=== PATIENT | female | born 1970 | race Caucasian/White ===

== ENCOUNTER 2020-06-26 12:07 | Inpatient (IN) | payer MEDICARE, MEDICAID, SELFPAY ==
[2020-06-26] VITALS (10 sets, daily range): BP systolic 105–219; BP diastolic 88–120; PULSE 82–99; RESP 16–20; TEMP 36.1–36.6; O2SAT 93–100; BMI 24.7
--- NOTE | ~2020-06-26 | CT_ITS ---
EXAMINATION: CTA brain carotid DATE: 06/26/2020 15:57 INDICATION: Left hemiparesis. TECHNIQUE: Computed tomographic angiography (CTA) of the head was performed without and with 100 mL O mnipaque-350 intravenous contrast. CTA of the neck was performed with intravenous contrast. Automated exposure control and iterative reconstruction technique were employed. The dose-length product was 1 596.20 mGy-cm. Maximum intensity projection and volume rendered 3D-reconstructions were created by th e technologist on a separate workstation. COMPARISON: Head CT 07/03/2006 FINDINGS: HEAD CTA: There is infarct in the laila on the right, likely chronic. There are old infarcts in the bi lateral thalami, right basal ganglia, and bilateral internal capsules. There are scattered areas of l ow attenuation in the cerebral white matter. There is no intracranial hemorrhage, acute infarction, o r abnormal intracranial mass lesion. The ventricles are normal in size. 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 There is mild mucosal thickening in the ethmoid sinuses. The orbits are normal. Th ere is a trace left mastoid effusion. The vertebral arteries are codominant. There is no significant stenosis of basilar artery or the posterior cerebral arteries. There is severe stenosis of right supr aclinoid internal carotid artery. There is moderate stenosis of left cavernous internal carotid arter y. There is mild stenosis of the azygos anterior cerebral artery. There is no significant stenosis of the vertebral artery middle cerebral arteries. NECK CTA: There are no pathologically enlarged lymph nodes. 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 There is no significant stenosis of the vertebral arteries. There is plaque in proximal right in ternal carotid artery in the proximal internal carotid arteries. There is 27% stenosis of the proxim al right internal carotid artery relative to normal distal artery lumen diameter (NASCET criteria). T here is 38% stenosis of the proximal left internal carotid artery relative to normal distal artery william men diameter. There is mild cervical spondylosis. IMPRESSION: 1. 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 2. Moderate nonspecific cerebral white matter disease, which likely represents chronic small vessel i schemic disease. 3. Severe stenosis of right supraclinoid internal carotid artery. Moderate stenosis of left cavernous internal carotid artery. 4. 27% stenosis of the proximal right internal carotid artery relative to normal distal artery lumen diameter (NASCET criteria). 5. 38% stenosis of the proximal left internal carotid artery relative to normal distal artery lumen d iameter. Reviewed, dictated and finalized at location A. ER GRADER IMPRESSION: 1. Old infarcts in the laila, bilateral thalami, right basal ganglia, and bilate ral internal capsules. 2. Moderate nonspecific cerebral white matter disease, which likely represents chronic small vessel ischemic disease. 3. Severe stenosis of right supraclinoid internal carotid artery. Moderate sten osis of left cavernous internal carotid artery. 4. 27% stenosis of the proximal right internal carotid artery relative to loren l distal artery lumen diameter (NASCET criteria). 5. 38% stenosis of the proximal left internal carotid artery relative to normal distal artery lumen diameter.
--- NOTE | ~2020-06-26 | MR_ITS ---
EXAMINATION: MR brain/brain stem wo/w con EXAM DATE: 06/27/2020 14:18 INDICATION: Stroke. TECHNIQUE: Magnetic resonance imaging (MRI) of the brain/brain stem obtained without contrast. Sagit douglas T1, axial diffusion, gradient echo (T2*), T1, T2, FLAIR sequences obtained. Patient was then inj ected with 12 cc intravenous Multihance contrast. Axial and coronal postcontrast T1 weighted sequence s obtained. Correlation is made to CTA brain earlier same date. FINDINGS: There is acute infarction in the right side of the laila. This measures up to 1.7 cm. There is an 8 mm infarction in the left basal ganglia. There is mild to moderate microangiopathy and cerebr al atrophy. No brain mass, extra-axial collections or obstructive hydrocephalus. There are no areas o f abnormal enhancement on the post contrast images. IMPRESSION: 1. Acute right laila infarction. 2. Acute left basal ganglia lacunar infarction. 3. Chronic age related findings. Reviewed, dictated and finalized at location B. TRAINER
--- NOTE | ~2020-06-26 | XR_ITS ---
XR abdomen NG/feed tube insert INDICATION: Evaluate NG tube position. TECHNIQUE: Limited KUB perform for evaluating NG tube . COMPARISON: No prior studies for comparison. FINDINGS: NG tube tip in the stomach. Visualized bowel gas pattern is unremarkable. IMPRESSION: 1: NG tube tip in the stomach. Reviewed, dictated and finalized at location A. MACY ACCOUNT DIRECTOR
--- NOTE | ~2020-06-26 | XR_ITS ---
EXAMINATION: XR chest 1V portable EXAM DATE: 06/26/2020 14:17 INDICATION: cva x4 days ago? TECHNIQUE: Portable AP frontal chest x-ray was obtained. There is no prior study for comparison. FINDINGS: The lungs are clear. There are no pleural effusions. The cardiomediastinal silhouette is within normal limits. There is no pneumothorax suspected. The bones and soft tissues are unremarkab le. IMPRESSION: No acute cardiopulmonary findings. Reviewed, dictated and finalized at location B. EYOR TECHNICIAN
--- NOTE | ~2020-06-26 | CT_ITS ---
EXAMINATION: CT brain wo con EXAM DATE: 06/27/2020 12:05 INDICATION: worsening stroke symptoms, left hemiparesis. TECHNIQUE: Spiral CT of the head was performed without contrast. Axial, coronal and sagittal images were reviewed. The dose-length product (DLP) for this examination was 605.33 mGy-cm. The exposure w as tailored according to patient size, and iterative reconstruction (ASIR) was used as additional dos e reduction technique. Comparison is made to prior examination from 04/26/2020. FINDINGS: There is no acute intraparenchymal hemorrhage. No evidence of intraparenchymal brain mass lesion. No evidence of acute infarction. Please note that initial head CT has limited sensitivity f or small or acute infarctions. Again there is approximately 1 cm hypodense region in the right side o f the laila Punctate old bilateral lacunar infarctions. There is moderate periventricular and subcort ical hypodensity, nonspecific but probably related to small vessel ischemic disease. There is mild prominence of the sulci and ventricles related to cerebral atrophy. There is intracranial carotid a rteriosclerosis. There are no extra-axial collections. There is no mass effect or midline shift. T he orbits are unremarkable. Soft tissue is unremarkable. The visualized sinuses and mastoid air aleja ls are well aerated. IMPRESSION: 1. Age-indeterminate right pontine infarction. 2. Chronic age related findings. 3. Bilateral lacunar infarctions. Reviewed, dictated and finalized at location B. E WORKER
--- NOTE | 2020-06-26 12:25 | ECG_ITS ---
Measurements Intervals [place] Rate: 94 P: 57 IA: 130 QRS: 15 QRSD: 82 T: 128 QT: 349 QTc: 439 Interpretive Statements SINUS RHYTHM LEFT VENTRICULAR HYPERTROPHY WITH ST-T CHANGE BORDERLINE R WAVE PROGRESSION, ANTERIOR LEADS BORDERLINE ST ABNORMALITY- ANTERIOLATERAL LEADS BORDERLINE ECG Electronically Signed On 06-26-2020 15:21:08 STONE DRILLER by Jm Cruz D.O.
[2020-06-26 12:40] LABS: Basophils Percent Auto 0.4 % (0.2-1.2); Eosinophils Absolute Auto 0.1 K/mm3 (0-0.3); Eosinophils Percent Auto 1.7 % (0-4.4); Hematocrit 37.6 % (37.0-47.0); Hemoglobin 13.3 g/dL (12.0-15.0); Immature Granulocyte Absolute 0.02 K/mm3 (0.00-0.031); Immature Granulocyte Percent A 0.3 % (0-0.5); Lymphocytes Absolute Auto 1.56 K/mm3 (0.9-3.2); Lymphocytes Percent Auto 20.9 % (18.3-44.2); Mean Corpuscular HGB Conc 35.4 g/dl (32-36); Mean Corpuscular Volume 84.9 fl (80-100); Mean Platelet Volume 8.8 fl (7.4-10.4); Monocytes Absolute Auto 0.6 K/mm3 (0.1-0.6); Monocytes Percent Auto 7.4 % (2.6-8.5); Neutrophils Absolute Auto 5.2 K/mm3 (1.3-6.7); Neutrophils Percent Auto 69.3 % (45.5-73.1); Platelet Count Result 209 k/mm3 (150-375); Red Blood Count 4.43 M/mm3 (4.2-5.4); Red Cell Distribution Width 11.9 % (11.5-14.5); White Blood Count 7.5 K/mm3 (4.5-10.0)
[2020-06-26 12:51] LABS: Prothrombin Time 13.7 Seconds (11.1-14.7)
[2020-06-26 12:52] LABS: Glucose Point of Care 253 (65-105)
[2020-06-26 12:54] LABS: Anion Gap 5 mmol/L (8-16); Blood Urea Nitrogen 11 mg/dL (7-17); Calcium 8.5 mg/dL (8.4-10.2); Carbon Dioxide 30 mmol/L (22-30); Chloride 98 mmol/L (98-107); Estimated CRCL calculation 74 ml/min; Estimated Glomerular Filt Rate > 60; Glucose 241 mg/dL (65-105); Sodium 133 mmol/L (137-145)
[2020-06-26 13:09] LABS: Troponin I < 0.012 ng/mL (0.000-0.034)
--- NOTE | 2020-06-26 15:08 | ED.GENADULT ---
HPI - General Adult General Chief complaint: Weakness Stated complaint: L SIDED WEAKNESS FOR PAST 4D Time Seen by Provider: 06/26/20 14:21 Source: patient and family History of Present Illness HPI narrative: Patient is a 49 y/o female complaining of left sided weakness for last 4 days. She states that her weakness is severe and she is unable to walk. There is no known alleviating or exacerbating factor. She states that she has history of seizure and she take Dilantin. She denies recent seizure. She denies any pain. Son states that she did not want to come to hospital initially when her symptoms first started. Related Data Home Medications Medication Instructions Recorded Confirmed Unable to Obtain Home Medications 06/26/20 Allergies Allergy/AdvReac Type Severity Reaction Status Date / Time aspirin Allergy Seizure Verified 06/26/20 18:55 Review of Systems Constitutional: Constitutional: Denies chills, Denies fever(s), Denies headache(s) and Reports weakness Eyes: Eyes: Denies blurry vision ENT: Denies headache(s) and Denies neck pain Cardiovascular: Cardiovascular: Denies chest pain and Denies dyspnea Respiratory: Respiratory: Denies cough and Denies dyspnea Gastrointestinal: Gastrointestinal: Denies abdominal pain, Denies diarrhea, Denies nausea and Denies vomiting Genitourinary: Genitourinary: Denies hematuria and Denies dysuria Musculoskeletal: Musculoskeletal: Denies back pain and Denies neck pain Neurologic: Denies headache(s) and Reports weakness [facility] Social History Social History Smoking packs per day: 1.5 Smoking cigarettes per day: 30.0 Smoking status: Current every day smoker Tobacco type: cigarettes Exam Const: General: no acute distress and well developed Orientation/consciousness: oriented to person, oriented to place, oriented to time and patient oriented x3 HENMT: Head: normocephalic Ears: external ears normal General nose exam: Normal external nose present Eyes: General: appearance normal, both eyes and all related structures Conjunctivae: conjunctivae normal Neck: Neck: normal visual inspection and full ROM Chest: Chest palpation & inspection: normal inspection of the chest and no tenderness Resp: Effort & Inspection: normal respiratory effort Auscultation: clear to auscultation bilaterally Cardio: Rate: regular rate Rhythm: regular rhythm GI: GI Palp: No abdominal tenderness and Yes Soft to palpation Skin: General skin exam: normal color and turgor normal Neuro: General: oriented to person, oriented to place, oriented to time and patient oriented x3 Cognition (Neuro): normal cognition Motor exam (neuro): Other motor observations present (left hemiparesis) Sensory Exam: other (decreased sensation on left side) Extrem: General: normal to inspection, full ROM and no pedal edema Psych: Appearance: grossly normal Mental Status: mental status grossly normal Affect: normal affect Course Consultations Consultation #1: Discussed with Dr. Slater, who agrees to consult. Date: 06/26/20 Time: 16:28 Consultation #2: Discussed with CHELI Alvarenga, who agrees to admit. Date: 06/26/20 Time: 16:37 Vital Signs Vital signs: Vital Signs Temperature 36.3 C L 06/26/20 12:22 Pulse Rate 99 06/26/20 12:22 Respiratory Rate 18 06/26/20 12:22 Blood Pressure 155/89 H 06/26/20 12:22 Pulse Oximetry 100 06/26/20 12:22 Temperature 36.3 C L 06/26/20 12:22 Pulse Rate 87 06/26/20 18:24 Respiratory Rate 17 06/26/20 18:24 Blood Pressure 188/88 H 06/26/20 18:24 Pulse Oximetry 93 06/26/20 18:24 Medical Decision Making MDM Narrative Medical decision making narrative: Patient is not a tPA candidate for stroke because LKW is greater than 4.5 hours. Patient is not a candidate for intervention because LKW is greater than 24 hours. Aspirin is not given due to reported allergic reaction. She is given Plavix. V
[2020-06-26 15:35] LABS: Phenytoin Dilantin 7 ug/mL (10-20)
[2020-06-26] MEDS: POTASSIUM CHLORIDE 20 MEQ TABLET 40 MEQ PO (15:51)
--- NOTE | 2020-06-26 16:59 | PC.NURSE ---
TRAVIS, SISTER IN LAW, GIVEN UPDATES PER PT REQUEST. TRAVIS'S PHONE NUMBER IS [phone]
[2020-06-26] MEDS: CLOPIDOGREL BISULFATE 75 MG TABLET PO (17:25)
[2020-06-26] MEDS: lisinopriL 20 MG TABLET PO (17:25)
[2020-06-26] MEDS: hydroCHLOROthiazide 25 MG TABLET PO (17:25)
--- NOTE | 2020-06-26 18:42 | ADMGEN ---
This patient, Gogo Johnson, was admitted to 2 Medical Room 245-. Patient/family oriented to hospital policies and general routines including ID bracelet, bed and alarms, visiting hours, pain management, procedures, bathroom and other care routines, personal items, smoking policy, room service/diet, and visiting hours. Information on how to activate the Rapid Response Team has been discussed. Patient/Family are encouraged to report perceived risks to care and to ask questions if they do not understand what they are told or what they should do.
--- NOTE | 2020-06-26 21:11 | PM.IMHP ---
H&P: HPI History of Present Illness Date/Time: 06/26/20 21:11 Chief Complaint: Left facial droop Narrative: Gogo Johnson is a 49 year old female who developed some left-sided weakness about 4 days ago. Her weakness is so severe she was unable to walk. She does have a history of having seizures and is on Dilantin extended release. She denies any recent seizure. She denies hitting her head. She lives with her 2 sons and they wanted her to come to the hospital right away. She also has a history of hypertension. She has a left facial droop and her left arm is flaccid. She denies having any previous strokes. She is able to swallow without difficulty. But she is having some problems with word she is doing some word searching. She has a left facial droop and left arm is flaccid. Her she stroke score was 10 which she was outside the window for any tPA. She is allergic to aspirin so she was given a Plavix. Neurology has been consulted head neck CTA old infarcts in the laila bilateral thalami right basal ganglia and bilateral internal capsules. Moderate nonspecific cerebral white matter disease and likely represents chronic small vessel ischemic disease. Severe stenosis of right supra clinoid internal carotid artery. Moderate stenosis of left cavernous internal carotid artery 27% stenosis of the proximal right internal carotid artery relative to normal distal artery luminal diameter. 38% stenosis of the proximal left internal carotid artery relative to normal distal artery lumen diameter. Chest x-ray nothing acute. She is given oral potassium, Plavix, hydrochlorothiazide and lisinopril in the emergency room. Was noted to be 3.0. Glucose 241. The patient is being admitted to observation status on the date of service is 06/26/2020 Review of Systems Review of Systems: All systems reviewed & are unremarkable except as noted in HPI and below Constitutional: Constitutional: Reports as per HPI and Reports no additional constitutional complaints Eyes: Eyes: Reports as per HPI and Reports no additional eye complaints ENT: Reports system reviewed and no additional complaints, except as documented and Reports Normal hearing present Cardiovascular: Cardiovascular: Reports no additional cardiovascular complaints Respiratory: Respiratory: Reports no additional respiratory complaints and Reports no additional respiratory complaints Gastrointestinal: Gastrointestinal: Reports as per HPI and Reports no additional gastrointestinal complaints Musculoskeletal: Musculoskeletal: Reports no additional musculoskeletal complaints Integumentary/Breasts: Skin/Breast: Reports system reviewed and no additional complaints, except as docu and Reports as per HPI Neurologic: Reports system reviewed and no additional complaints, except as documented, Reports as per HPI and Reports Normal hearing present Psychiatric: Psychiatric: Reports no additional psychiatric complaints and Reports as per HPI Endocrine: Endocrine: Reports no additional endocrine complaints Hematologic/Lymphatic: Hematologic/Lymphatic: Reports no additional hematologic/lymphatic complaints Allergic/Immunologic: Allergic/Immunologic: Reports no additional allergic/immunologic complaints PMFSH Past Medical History Medical History (Updated 06/26/20 @ 21:19 by Colette Kwok NP) Hypertension Seizure disorder Tobacco abuse Surgical History Surgical History (Updated 06/26/20 @ 21:19 by Colette Kwok NP) History of laparotomy Family History Family History (Updated 06/26/20 @ 21:19 by Colette Kwok NP) Sibling Heart disease Social History Social History (Updated 06/26/20 @ 21:20 by Colette Kwok NP) Social History: The patient has 2 sons in the live with her. She is . She is disabled. She does not have a durable power research attorney for healthcare. She is a full code. She denies any alcohol or substance abuse. Smoking packs per day: 1.5 Smoking cigarett
[2020-06-26] MEDS: PHENYTOIN SODIUM INJ 100 MG/2 ML VIAL (*BKC) IV PUSH (22:13)
[2020-06-27] VITALS (7 sets, daily range): BP systolic 117–120; BP diastolic 64–98; PULSE 72–93; RESP 14–20; TEMP 36.2–36.7; O2SAT 98–100; BMI 24.7
[2020-06-27 00:17] LABS: Glucose Point of Care 133 (65-105)
[2020-06-27 05:33] LABS: Basophils Percent Auto 0.5 % (0.2-1.2); Eosinophils Absolute Auto 0.2 K/mm3 (0-0.3); Eosinophils Percent Auto 1.7 % (0-4.4); Hematocrit 37.7 % (37.0-47.0); Hemoglobin 13.2 g/dL (12.0-15.0); Immature Granulocyte Absolute 0.03 K/mm3 (0.00-0.031); Immature Granulocyte Percent A 0.3 % (0-0.5); Lymphocytes Absolute Auto 1.69 K/mm3 (0.9-3.2); Lymphocytes Percent Auto 19.3 % (18.3-44.2); Mean Corpuscular Hemoglobin 29.4 pg (26-34); Mean Platelet Volume 9.2 fl (7.4-10.4); Monocytes Absolute Auto 0.8 K/mm3 (0.1-0.6); Monocytes Percent Auto 8.8 % (2.6-8.5); Neutrophils Absolute Auto 6.1 K/mm3 (1.3-6.7); Neutrophils Percent Auto 69.4 % (45.5-73.1); Platelet Count Result 214 k/mm3 (150-375); Red Blood Count 4.49 M/mm3 (4.2-5.4); Red Cell Distribution Width 11.9 % (11.5-14.5); White Blood Count 8.8 K/mm3 (4.5-10.0)
[2020-06-27 05:49] LABS: Alanine Aminotransferase 19 U/L (4-35); Albumin Level 3.7 g/dL (3.5-5.1); Alkaline Phosphatase 93 U/L (38-126); Anion Gap 5 mmol/L (8-16); Aspartate Amino Transferase 26 U/L (14-36); Bilirubin,Total 0.5 mg/dL (0.2-1.3); Blood Urea Nitrogen 11 mg/dL (7-17); Calcium 8.5 mg/dL (8.4-10.2); Carbon Dioxide 31 mmol/L (22-30); Chloride 100 mmol/L (98-107); Estimated CRCL calculation 57 ml/min; Estimated Glomerular Filt Rate > 60; Glucose 126 mg/dL (65-105); Magnesium 1.7 mg/dL (1.6-2.3); Phosphorus 3.5 mg/dL (2.5-4.5); Potassium 3.4 mmol/L (3.4-5.0); Sodium 136 mmol/L (137-145)
--- NOTE | 2020-06-27 06:00 | ECHO_ITS ---
Patient Info Name: Gogo Johnson Age: 49 years : 1970 Gender: Female Ht: 62 in Wt: 136 lbs BSA: 1.65 m2 HR: 80 bpm BP: 129 / 88 mmHg Heart Rhythm: Sinus Rhythm Technical Quality: Good Exam Date: 06/27/2020 11:06 AM Exam Location: [facility] Patient Status: Inpatient Admit Date: 06/26/2020 Staff Ordering Physician: Emy Dasilva MD Cut Off Saw Tender Metal: Lee You RDCS Attending Provider: Amita Santos MD Referring Physician: Brown GIBBONS; Exam Type: CA echo doppler w bubble study Study Info Indications 436.0 - CVA Complete two-dimensional, color flow and Doppler transthoracic echocardiogram is performed. History/Risk Factors Stroke; hypertension. Summary 1. Complete two-dimensional, color flow and Doppler transthoracic echocardiogram is performed. 2. Left ventricular systolic function is normal, estimated at 65-70%. 3. There is moderately increased left ventricular wall thickness. 4. The left ventricular diastolic function is grade I diastolic dysfunction. 5. There is mild aortic valve stenosis with a peak velocity of 152 cm/s, mean gradient of 5 mmHg, and aortic valve area of 1.5 cm2. 6. There is no aortic valve regurgitation. 7. Unable to estimate PA systolic pressure due to poor spectral resolution of tricuspid regurgitant jet velocity. 8. No intracardiac shunt with injection of agitated saline with and without Valsalva. Recommendations * Consider transesophageal echocardiogram if clinically indicated. Left Ventricle Left ventricular chamber dimension is normal. Left ventricular systolic function is normal, estimated at 65-70%. There is moderately increased left ventricular wall thickness. The left ventricular diastolic function is grade I diastolic dysfunction. Right Ventricle Right ventricular chamber dimension is normal. Right ventricular systolic function is normal. Left Atria Left atrial chamber dimension is normal. Right Atria Right atrial chamber dimension is normal. Atrial Septum No intracardiac shunt with injection of agitated saline with and without Valsalva. Aortic Valve The aortic valve is not well visualized. There is mild aortic valve sclerosis. There is mild aortic valve stenosis with a peak velocity of 152 cm/s, mean gradient of 5 mmHg, and aortic valve area of 1.5 cm2. There is no aortic valve regurgitation. Pulmonic Valve The pulmonic valve is not well visualized. Mitral Valve The mitral valve has thickened leaflets. There is trace mitral valve regurgitation. The mitral valve annulus is mildly calcified. Tricuspid Valve The tricuspid valve leaflets are normal. There is trace tricuspid valve regurgitation. Unable to estimate PA systolic pressure due to poor spectral resolution of tricuspid regurgitant jet velocity. Pericardium/Pleural The pericardium appears normal. There is small pericardial effusion. Inferior Vena Cava Normal inferior vena cava with >50% collapse upon inspiration consistent with normal right atrial pressure, 5 mmHg. Aorta The aortic root size at the sinus of Valsalva is normal. There is mild aortic atherosclerosis. Left Ventricular Outflow Tract Name Value Normal LVOT 2D LVOT Diameter
[2020-06-27] MEDS: PHENYTOIN SODIUM INJ 100 MG/2 ML VIAL (*BKC) IV PUSH ×2 (06:01→15:41)
[2020-06-27 06:32] LABS: Glucose Point of Care 133 (65-105)
[2020-06-27 07:45] LABS: Glucose Point of Care 119 (65-105)
--- NOTE | 2020-06-27 10:04 | PC.NURSE ---
Patient in chair and drooling from right side of mouth. Unable to handle her secretions. Bedside speech therapy evaluation revealed coughing with ice chips and unable to swallow safely. Notified Lia COBB that Plavix not given. Also notified Lia that patient unable to comprehend or respond appropriately to questions asked. Spoke with sister Zainab on the phone (she called to check on patient). Per Zainab, patient is usually alert and oriented and cares for herself at home. MRI screening form completed with sister via phone. MRI notified that form has been completed.
[2020-06-27 10:17] LABS: Cholesterol 205 mg/dL (0-200); HDL Direct 33 mg/dL; Triglycerides 240 mg/dL (<150)
[2020-06-27 10:28] LABS: LDL Cholesterol Direct 142 mg/dL
--- NOTE | 2020-06-27 11:16 | PM.IMPN ---
Progress Note: A&P Assessment and Plan (1) Suspected cerebrovascular accident (CVA): Code(s): R09.89 - Other specified symptoms and signs involving the circulatory and respiratory systems Status: Acute Assessment and Plan: Patient has had a significant change overnight according to documentation -her new stroke score is 26 which is a change from 10 in the ER -I am going to get a stat CT of the brain to ensure no bleed -MRI of the brain is also been ordered and will likely be done this afternoon -I have spoken to [facility] about the case and they are going to wait for the stat CT and go from there -they recommend getting her blood pressure little higher and suggests a L bolus of fluids and to keep the patient flat -patient unable to tolerate anything by mouth so Plavix was not given. She is unable to tolerate aspirin as it causes seizures -unable to get a hold of her 2 sons but nurse was able to speak to a sister. Once we know more, I will be calling her -patient has a history of old strokes on CT but I am unable to talk to her son's or get any more information about that. -if she continues the way she is, she will need a G-tube -PT/OT/ST has been ordered -will need Holter monitor at discharge (2) Acute left hemiparesis: Code(s): G81.94 - Hemiplegia, unspecified affecting left nondominant side Status: Acute Assessment and Plan: PT and OT ordered but the patient will unlikely be able to cooperate at this time (3) Hypertension: Qualifiers: Hypertension type: unspecified Qualified Code(s): I10 - Essential (primary) hypertension Code(s): I10 - Essential (primary) hypertension Status: Chronic Assessment and Plan: Last blood pressure 117/64 -will stop hydralazine and try to keep the blood pressure elevated -as stated above, 1 L bolus fluid has been ordered (4) Seizure disorder: Code(s): G40.909 - Epilepsy, unspecified, not intractable, without status epilepticus Status: Chronic Assessment and Plan: Continue Dilantin IV, patient could be having seizures which is causing her to be more aphasic -will await CT of the brain -consider Shun, I will talk to Neurology once CT is back (5) Hypokalemia: Code(s): E87.6 - Hypokalemia Status: Acute Assessment and Plan: Low end of normal today, monitor (6) Elevated blood sugar: Code(s): R73.9 - Hyperglycemia, unspecified Status: Acute Assessment and Plan: A1c 6.0 -monitor Time Spent With Patient Time with patient: 25 - 35 minutes Subjective Date/time seen: 06/27/20 11:16 Interval history: Pt is a 49-year-old female here for suspected stroke. Patient was seen today and is completely aphasic. She arouses to stimulation and her name but does not cooperate or speak Review of Systems Review of Systems: All systems reviewed & are unremarkable except as noted in HPI and below Exam Narrative: Exam Narrative: General: Patient resting comfortably in bed in no acute distress HEENT: normocephalic, tongue seems to be protruding to the left Neck: supple Neuro: Alert but not oriented. Appears to move her right arm And right leg spontaneously. Left arm appears weak and drops when raised but she can move it to pain. Left leg does not appear to be moving. She is unable to follow any commands or follow my finger. Pupils equal and reactive CV:RRR. Telemetry shows no arrhythmias Resp:CTA Abd: Soft, non distended. No pain to palpation. Positive bowel sounds Extremities: As stated above. No erythema or pain to palpation Objective Data Vital Signs Vital Signs: Vital Signs - 24 hr 06/26/20 12:22 06/26/20 15:19 06/26/20 15:53 Temperature 97.4 F L Pulse Rate 99 90 88 Respiratory Rate 18 20 20 Blood Pressure 155/89 H 185/106 H 105/91 H Pulse Oximetry 100 100 99 06/26/20 16:53 06/26/20 17:18 06/26/20 17:23 Temperature Pulse Rat
[2020-06-27 11:19] LABS: Glucose Point of Care 163 (65-105)
--- NOTE | 2020-06-27 11:24 | PCSTNOTE ---
Please refer to the Bedside Swallow Evaluation in the EMR. Please note, silent aspiration cannot be ruled out at bedside.
[2020-06-27] MEDS: LACTATED RINGERS 1,000 ML 999 ML IV CONT (11:34)
--- NOTE | 2020-06-27 13:34 | PCDIET ---
Nutrition note: Spoke with JORDYN Fitzgerald today in regards to patient nutrition. Patient failed MBS today. Plans for NGT feedings. Tube feeding recommendations: Jevity 1.2 at 20 m/hr advance by 10 ml/hr q 4 hours to goal rate of 65 ml/hr. Goal rate will provide: 1716 kcals/79 gms protein/1154 ml water. Will follow up tomorrow.
[2020-06-27] MEDS: CLOPIDOGREL BISULFATE 75 MG TABLET PO (15:51)
--- NOTE | 2020-06-27 17:05 | PM.TDS ---
Transfer Discharge Sum: Prov Provider Date of admission: 06/27/20 15:55 Primary care physician: Marc HusainLaura Admitting clinician: Amita Santos MD Consults: 06/26/20 16:51 Consult to Physician Routine Comment: Consulting Provider: Romel Slater Reason for consultation: stroke Has provider been notified: Yes DS: Admitting Diagnosis Admitting Diagnosis Admitting Diagnosis: CVA DS: Discharge Diagnosis Discharge Diagnosis (1) Suspected cerebrovascular accident (CVA): Code(s): R09.89 - Other specified symptoms and signs involving the circulatory and respiratory systems Status: Acute Assessment and Plan: Patient has had a significant change overnight according to documentation -her new stroke score is 26 which is a change from 10 in the ER -repeat CT shows no bleed, MRI shows acute right laila infarct -Spoke with Dr. Jane who accepted the pt for angiography -they recommend getting her blood pressure little higher and suggests a L bolus of fluids and to keep the patient flat -patient unable to tolerate anything by mouth. NG tube placed for plavix -Spoke with son, jair, about plan of care. He agrees with tx and would like to be notified with any changes (2) Acute left hemiparesis: Code(s): G81.94 - Hemiplegia, unspecified affecting left nondominant side Status: Acute Assessment and Plan: PT and OT ordered but the patient will unlikely be able to cooperate at this time (3) Hypertension: Qualifiers: Hypertension type: unspecified Qualified Code(s): I10 - Essential (primary) hypertension Code(s): I10 - Essential (primary) hypertension Status: Chronic Assessment and Plan: Last blood pressure 120/98 at discharge -will stop hydralazine and try to keep the blood pressure elevated -as stated above, 1 L bolus fluid has been ordered (4) Seizure disorder: Code(s): G40.909 - Epilepsy, unspecified, not intractable, without status epilepticus Status: Chronic Assessment and Plan: Continue Dilantin IV, patient could be having seizures which is causing her to be more aphasic -spoke with [facility] about this. Less likely. they will evaluate (5) Hypokalemia: Code(s): E87.6 - Hypokalemia Status: Acute Assessment and Plan: Low end of normal today, monitor (6) Elevated blood sugar: Code(s): R73.9 - Hyperglycemia, unspecified Status: Acute Assessment and Plan: A1c 6.0 -monitor Transfer Discharge Sum: Med Medications Active and Home Medications: Home Medications amlodipine 10 mg PO DAILY 06/26/20 [History Confirmed 06/26/20] hydrocodone-acetaminophen [[place]] 1 tablet PO Q8H PRN 06/26/20 [History Confirmed 06/26/20] ibuprofen 800 mg PO TID PRN 06/26/20 [History Confirmed 06/26/20] ipratropium-albuterol [Combivent Respimat] 1 puff INHALATION QID 06/26/20 [History Confirmed 06/26/20] phenytoin sodium extended [Dilantin Extended] 300 mg PO HS 06/26/20 [History Confirmed 06/26/20] Transfer Discharge Sum: Hosp Hospital Course Hospital course: Gogo Johnson is a 49 year old female who presented emergency room after 4 days of left-sided weakness in the upper extremity and lower extremity. CTA of the brain showed old infarcts in the laila, bilateral thalami, right basal ganglia and bilateral internal capsules. There was severe stenosis of the right supraclinoid internal carotid artery as well as moderate stenosis of the left cavernous internal carotid arteries. The proximal left and right carotid arteries were 38% and 27% respectively. The patient worsened overnight and the next day was more unresponsive. She would arouse to her name but unable to follow gaze, answer questions, move her left side, or take any medications. This was a significant change from admission. A repeat CT scan showed no change. MRI confirmed an acute laila stroke. I called [facility] and spoke wi
[2020-06-27 19:29] LABS: Glucose Point of Care 122 (65-105)
== END 2020-06-27 19:30 | disposition short-term general hospital (02) | DRG 65 ==
LOC: ANHED 14:21 → ANH2MED 18:04
PROVIDERS: Emergency Medicine; Nurse Practitioner; Physician Assistant; Admitting Provider Family Medicine; Emergency Provider Emergency Medicine; PCP Internal Medicine Infectious Disease; Visit Provider Internal Medicine
DX: I63.9 Cerebral infarction, unspecified (principal); G81.04 Flaccid hemiplegia affecting left nondominant side; R29.810 Facial weakness; R09.89 Other specified symptoms and signs involving the circulatory and respiratory systems; R29.710 NIHSS score 10; R29.726 NIHSS score 26; F17.210 Nicotine dependence, cigarettes, uncomplicated; I10 Essential (primary) hypertension; E87.6 Hypokalemia; R73.9 Hyperglycemia, unspecified; G40.909 Epilepsy, unspecified, not intractable, without status epilepticus; Z28.21 Immunization not carried out because of patient refusal; Z79.899 Other long term (current) drug therapy; Z88.6 Allergy status to analgesic agent
CPT/HCPCS: 36415; 70450; 70496; 70498; 70553; 71045; 80048; 80053; 80061; 80185; 82728; 82948; 83036; 83735; 84100; 84443; 84484; 85025; 85610; 85730; 92610; 93005; 93306; 96361; 96374; 96375; 96376; 97162; 97166; 99285; A9270; A9577; G0378; J1165; J7120; Q9967

== ENCOUNTER 2020-07-05 19:22 | IRF | payer MEDICARE, MEDICAID, SELFPAY ==
--- NOTE | ~2020-07-05 | XR_ITS ---
XR fl Dobhoff insert/rad w img INDICATION: Evaluate feeding tube position. TECHNIQUE: Limited KUB perform for evaluating feeding tube . COMPARISON: 07/06/2020 FINDINGS: Feeding tube tip in the stomach. The feeding tube has been retracted since prior examinatio n. Visualized bowel gas pattern is unremarkable. IMPRESSION: 1: Feeding tube tip in the stomach, retracted since prior study. Reviewed, dictated and finalized at location A. R HELPER
--- NOTE | ~2020-07-05 | XR_ITS ---
EXAMINATION: XR fl Dobhoff insert/rad w img DATE: 07/11/2020 09:25 INDICATION: Dysphagia. TECHNIQUE: The existing nasoenteric tube was removed, and I placed a new nasoenteric tube under fluor oscopic guidance and flushed with saline. 2 fluoroscopic images were obtained. The fluoroscopy exposu re time was 0.9 minutes. COMPARISON: None. FINDINGS: Fluoroscopy of the previously existing nasoenteric tube shows no abnormality. The tube coul d not be flushed and was likely clogged. I removed the tube. I placed a new tube under fluoroscopic g uidance. The nasoenteric tube tip is in the stomach. IMPRESSION: 1. Fluoroscopy guided nasoenteric tube placement with tip in the stomach. Reviewed, dictated and finalized at location A. AID
--- NOTE | ~2020-07-05 | XR_ITS ---
EXAMINATION: XR chest 2V DATE: 07/24/2020 17:31 INDICATION: Increased cough TECHNIQUE: AP and lateral views of the chest are obtained. COMPARISON: 06/26/2020 FINDINGS: The lungs are free of acute opacities. There is no pleural effusion or pneumothorax. The ca rdiomediastinal silhouette is normal. There is mild thoracic spondylosis. There has been interval ins ertion of a cardiac loop recorder and a gastrostomy. IMPRESSION: 1. No acute cardiopulmonary abnormality. Reviewed, dictated and finalized at location A. BULATORY ANALYST
--- NOTE | ~2020-07-05 | XR_ITS ---
EXAMINATION: XR fl Dobhoff insert/rad w img DATE: 07/06/2020 17:22 INDICATION: Failed bedside swallow TECHNIQUE: A Dobbhoff type feeding tube was advanced into the duodenum utilizing intermittent fluoroscopy. Final image demonstrates the feeding tube in position with the weighted tip at the expected location of th e third portion of the duodenum. The tube was flushed with 10 mL sterile saline and fixed to the nare s with adhesive tape. A single fluoroscopic image was recorded. Fluoroscopy exposure time was 4.3 min utes. The DAP for this procedure was 26.3 Gycm2. There were no immediate complications. FINDINGS/IMPRESSION: Successful fluoroscopy-guided Dobbhoff feeding tube placement with distal tip in the third portion of the duodenum. Reviewed, dictated and finalized at location A. OR PHP SOFTWARE DEVELOPER
--- NOTE | ~2020-07-05 | XR_ITS ---
EXAMINATION: XR fl Dobhoff insert/rad w img DATE: 07/09/2020 11:48 INDICATION: Failed modified swallow study. TECHNIQUE: A Dobbhoff type feeding tube was advanced into the fourth portion of the duodenum utilizin g intermittent fluoroscopic guidance. 10 mL Omnipaque-350 was injected into the stomach delineate the gastric outlet to aid in passage of the catheter into the duodenum. The catheter was flushed with 10 mL sterile saline and attached to the nares with adhesive tape. A total of 3 fluoroscopic images wer e recorded. Fluoroscopy exposure time was 1.8 minutes. The DAP for this procedure was 10.795 Gycm2. T here were no immediate complications FINDINGS/IMPRESSION: Successful fluoroscopy guided Dobbhoff type feeding tube placement with distal tip in the fourth port ion of the duodenum. Reviewed, dictated and finalized at location A. [employer]
[2020-07-05 19:22] VITALS: BP 107/86; PULSE 110; RESP 18; TEMP 36.4; O2SAT 98; BMI 21.9
--- NOTE | 2020-07-05 19:51 | ADMGEN ---
This patient, Gogo Johnson, was admitted to [facility] Room 224-02 at 1922. Patient/family oriented to hospital policies and general routines including ID bracelet, bed and alarms, visiting hours, pain management, procedures, bathroom and other care routines, personal items, smoking policy, room service/diet, and visiting hours. Information on how to activate the Rapid Response Team has been discussed. Patient/Family are encouraged to report perceived risks to care and to ask questions if they do not understand what they are told or what they should do.
[2020-07-05 20:57] VITALS: BP 107/86; PULSE 110; RESP 18; TEMP 36.4; O2SAT 98; BMI 21.9
[2020-07-05 22:00] VITALS: BP 134/81; PULSE 107; RESP 20; TEMP 36.7; O2SAT 99
[2020-07-05] MEDS: PHENYTOIN SODIUM 100 MG CAP 300 MG PO (22:32)
[2020-07-06 05:39] LABS: Basophils Percent Auto 0.3 % (0.2-1.2); Eosinophils Absolute Auto 0.1 K/mm3 (0-0.3); Hematocrit 39.6 % (37.0-47.0); Hemoglobin 13.8 g/dL (12.0-15.0); Immature Granulocyte Absolute 0.03 K/mm3 (0.00-0.031); Immature Granulocyte Percent A 0.3 % (0-0.5); Lymphocytes Absolute Auto 1.83 K/mm3 (0.9-3.2); Lymphocytes Percent Auto 20.6 % (18.3-44.2); Mean Corpuscular HGB Conc 34.8 g/dl (32-36); Mean Corpuscular Hemoglobin 29.7 pg (26-34); Mean Corpuscular Volume 85.3 fl (80-100); Mean Platelet Volume 9.6 fl (7.4-10.4); Monocytes Absolute Auto 0.7 K/mm3 (0.1-0.6); Monocytes Percent Auto 7.8 % (2.6-8.5); Neutrophils Absolute Auto 6.2 K/mm3 (1.3-6.7); Platelet Count Result 194 k/mm3 (150-375); Red Blood Count 4.64 M/mm3 (4.2-5.4); Red Cell Distribution Width 12.4 % (11.5-14.5); White Blood Count 8.9 K/mm3 (4.5-10.0)
[2020-07-06 05:52] LABS: Anion Gap 12 mmol/L (8-16); Blood Urea Nitrogen 17 mg/dL (7-17); Carbon Dioxide 25 mmol/L (22-30); Chloride 98 mmol/L (98-107); Cholesterol 144 mg/dL (0-200); Estimated CRCL calculation 53 ml/min; Estimated Glomerular Filt Rate > 60; Glucose 115 mg/dL (65-105); HDL Direct 41 mg/dL; Potassium 3.5 mmol/L (3.4-5.0); Sodium 135 mmol/L (137-145); Triglycerides 239 mg/dL (<150)
[2020-07-06 06:00] VITALS: BP 97/66; PULSE 110; RESP 20; TEMP 36.9; O2SAT 97
[2020-07-06 06:03] LABS: LDL Cholesterol Direct 58 mg/dL
[2020-07-06 06:17] LABS: Hemoglobin A1C 5.7 % (<5.7)
[2020-07-06] MEDS: cilostazoL 100 MG TABLET PO (06:25)
[2020-07-06] MEDS: amLODIPine BESYLATE 5 MG TABLET 10 MG PO (08:41)
[2020-07-06] MEDS: NICOTINE (*PBKC) 7 MG PATCH 1 PATCH TRANSDERM (08:41)
[2020-07-06] MEDS: lisinopriL 20 MG TABLET 40 MG PO (08:42)
[2020-07-06] MEDS: FLUoxetine HCL 20 MG CAPSULE PO (08:42)
[2020-07-06] MEDS: CLOPIDOGREL BISULFATE 75 MG TABLET PO (08:42)
--- NOTE | 2020-07-06 11:01 | WPDREHABHP ---
H&P: HPI History of Present Illness Date/Time: 07/06/20 11:01 Chief Complaint: Stroke Narrative: Gogo Johnson is a 49 year old femaleHISTORY OF PRESENT ILLNESS: The patient's primary rehab impairment category is stroke The etiologic diagnosis is right small vessel ischemic strokes I saw this patient [id number] on 11:00 a.m. on July 06, 2020 The patient is a 49 years old female with a past medical history of seizures and hypertension who presented to [facility] as a transfer with left-sided weakness and facial droop. Patient reported that symptomatology began 4 days ago with difficulties in walking. Patient reported falling out but denied is striking her head. Initial NIH SS was 10. CTA revealed multiple areas of bilateral carotid stenosis. Old basal ganglia and pontine infarcts were demonstrated on MRI. The patient was transferred to [facility] for further workup. Neurology was consulted the patient was given Plavix, cilostazol old, and is atorvastatin. She was to remain on Plavix and cilostazol for 90 days CTA revealed bilateral intracranial carotid artery stenosis. TTE was negative for PFO or NIESHA, ejection fraction 68%. FATMATA was performed on July 03, 2020 and showed no cardioembolic source so a loop recorder was not placed. Cerebral angiogram was performed on July 04, 2020 and showed bilateral intracranial arteries artery stenosis left at 70% and right at 65%. She passed a swallowing study and was on pureed diet with nectar thickened liquids. She was treated for urinary tract infection with IV ceftriaxone which she completed on June 30, 2020. She was discharged to rehab on subcutaneous heparin for DVT prophylaxis and heparin was to be discontinued upon discharge from the [facility]. #COVID the patient has not traveled outside the [place] or had contact with someone who is ill that has traveled outside the [place] in the last 21 days. The patient has not traveled to an area of the [place] there is experiencing known transmission of the Coronavirus and has not had close personal contact with anyone that has. The patient does not have a fever. The patient is not experiencing lower respiratory illness symptoms. Therapy was initiated at the acute care facility and the patient transferred to us from [facility] on July 05, 2020 FALLS OR SURGERIES: The patient has had [no] major surgeries in the 100 days prior to admission. They had [no] falls in the past year. They had [no] falls with injury in the past year. PAST MEDICAL HISTORY: seizure disorder, hypertension, hyperlipidemia, depression. PAST SURGICAL HISTORY: unknown SOCIAL HISTORY: patient lives with her 2 sons in a 1 level home with no stairs. She was independent in all ADLs and ambulated with a wheeled walker prior to this hospitalization. Her sons are able to assist her at home following rehab. Current everyday smoker. No alcohol or drug abuse reported. FAMILY HISTORY: Not on file PRIOR LEVEL OF FUNCTION: Eating was [INDEPENDENT] Oral Care was [INDEPENDENT] Toileting Hygiene was [INDEPENDENT] Shower/Bathing was [INDEPENDENT] Upper Body Dressing was [INDEPENDENT] Lower Body Dressing was [INDEPENDENT] Donning/[place] Footwear was [INDEPENDENT] Rolling Left and Right was [INDEPENDENT] Sit to Lying was [INDEPENDENT] Lying to Sitting was [INDEPENDENT] Sit to Stand was [INDEPENDENT] Bed to Chair Transfers was [INDEPENDENT] Toilet Transfers was [INDEPENDENT] Walking was [INDEPENDENT] [>500 feet] with [NO DEVICE] Wheelchair Mobility was [NOT APPLICABLE PRIOR TO ADMISSION] Stairs were [INDEPENDENT] CURRENT LEVEL OF FUNCTION: Eating is supervision or touching assistance Oral Care is partial or moderate assistance Toileting Hygiene is partial or moderate assistance Shower/Bathing is partial or moderate assistance Upper Body Dressing is partial or moderate assistance Lower Body Dressing
[2020-07-06 11:38] LABS: Phenytoin Dilantin 12 ug/mL (10-20)
[2020-07-06 12:45] VITALS: BMI 21.9
--- NOTE | 2020-07-06 13:37 | RPD ---
INDIVIDUALIZED PLAN OF CARE FOR Gogo Johnson Brief Synthesis of Pre-Admission Screen, Post-Admission Evaluation and Therapy Evaluations: The patient presents to rehab with right small vessel ischemic strokes. Comorbidities include hypertension, hyperlipidemia, seizure disorder, dysphagia, left-sided weakness, hypocalcemia, hyponatremia, hypokalemia, and respiratory insufficiency. This patient requires intensive therapies to restore lost function due to stroke in order to maximize her functional level of independence and quality of life. The complexity of the patient's medical management, nursing, and therapy needs require an inpatient rehab hospital stay with a physician-led interdisciplinary team approach. The patient?s needs will be best met in an intensive program vs. at a lower level of care. The patient requires physician services for neurology services, medical oversight, and coordination of care. The patient needs physician monitoring and treatment of electrolyte imbalances, monitoring for adverse reactions to new medications, monitoring of infection, and pain control. The patient requires nursing services for frequent neuro checks, anticoagulation therapy, medication management and education, pressure relief and skin care management, monitoring of labs, bowel and bladder training, diabetes management and education, and fall/safety precautions. Deficits include:ADLs, Balance, Cognition, Endurance, Family Training/Education, Mobility, Pain Management, ROM, Safety, Strength, Swallowing, and Transfers. Survey Operations Director/Case Management for: Discharge Planning and Patient/Family Counseling Physical Therapy: 5 days per week for 60 minutes. Treatments may include: Therapeutic Exercise, Gait Training, Neuromuscular Re-education, Transfer Training, Community Reintegration, Bed Mobility, Patient/Family Education, Wheelchair Mobility Group Therapy/Concurrent Therapy Rationales: -Improve attention span during functional activities in a distracted environment. -Enhance problem solving and/or adequate judgment skills during functional activities in a distracted environment. -Promote increased safety awareness in a distracted environment to reduce fall risk with functional tasks, transfers, and ambulation to allow a more safe, self-sufficient return to the home environment. -Improve dynamic balance skills to promote safety and independence with functional activities in a distracted environment for maximum gain. Occupational Therapy: 5 days per week for 60 minutes. Treatments may include: Therapeutic Exercise, Therapeutic Activity, Cognitive Training, Self-Care Transfer Training, Community Reintegration, Home Management, Patient/Family Education, Wheelchair Mobility Training, Energy Conservation Training Group Therapy/Concurrent Therapy Rationales: -Allow therapist to observe and teach generalization and carry-over of skills learned in individual therapy. -Enhance problem solving and sequencing skills during therapeutic activities in a distracted environment. -Promote increased safety awareness in a realistic setting to reduce fall risk with functional tasks due to visual and verbal distractions. -Increase functional level with ADLs, ADL transfers and use of adaptive equipment through therapeutic activities with others while promoting safety to allow a more safe, self-sufficient return home. Speech Therapy: 5 days per week for 60 minutes. Treatments may include: Dysphasia Therapy, Speech/Language/Communication Therapy, Cognitive Training, Patient/Family Education Group Therapy/Concurrent Therapy - Rationale: -Allow therapist to observe and teach generalization and carry-over of skills learned in individual therapy. -Improve comprehension skills with complex or abstract ideas through discussion in a realistic setting. -Enhance problem solving skills with complex issues during activities in a distracted environment. -Promote increased memory skills and concentration in a dis
[2020-07-06 14:00] VITALS: BP 92/44; PULSE 95; RESP 16; TEMP 36.7; O2SAT 94
--- NOTE | 2020-07-06 14:22 | PC.NURSE ---
spoke with Dr Slater regarding patient's blood pressure as well as dilantin level. received N.O. to decrease lisinopril to 20 mg daily and to increase dilantin to 350 mg PO q hs.
--- NOTE | 2020-07-06 15:41 | PCSTNOTE ---
Please refer to the Bedside Swallow Evaluation in the EMR. NPO recommended.
--- NOTE | 2020-07-06 18:32 | PC.NURSE ---
MD updated that 1600 medication was not given due to patient being NPO awaiting dobhoff placement.
[2020-07-06] MEDS: PHENYTOIN 50 MG CHEW PO (20:31)
[2020-07-06] MEDS: PHENYTOIN SODIUM 100 MG CAP 300 MG PO (20:31)
[2020-07-06] MEDS: ATORVASTATIN 40 MG TABLET 80 MG PO (20:31)
[2020-07-06 21:35] VITALS: BP 107/53; PULSE 84; RESP 16; TEMP 36.3; O2SAT 97
[2020-07-07 05:24] VITALS: BP 92/49; PULSE 86; RESP 18; TEMP 36.4; O2SAT 93
[2020-07-07] MEDS: cilostazoL 100 MG TABLET PO ×2 (05:25→16:22)
[2020-07-07 08:00] VITALS: PULSE 86; RESP 18; O2SAT 93
--- NOTE | 2020-07-07 09:38 | PC.NURSE ---
0800 LEFT SIDE FLACCID, RT UNABLE TO FOLLOW COMMANDS.. UNABLE TO GRAB HAND OR DO FOOT PUSHES PUPILS 2 EQUAL ROUND AND REACTIVE TO LIGHT. SPEECH IS CLEAR, SLOW TO GET OUT.
[2020-07-07] MEDS: lisinopriL 20 MG TABLET PO (11:27)
[2020-07-07] MEDS: CLOPIDOGREL BISULFATE 75 MG TABLET PO (11:27)
[2020-07-07] MEDS: FLUoxetine HCL 20 MG CAPSULE PO (11:27)
[2020-07-07] MEDS: amLODIPine BESYLATE 5 MG TABLET 10 MG PO (11:27)
[2020-07-07] MEDS: NICOTINE (*PBKC) 7 MG PATCH 1 PATCH TRANSDERM (11:27)
[2020-07-07 14:00] VITALS: BP 105/80; PULSE 18; RESP 96; TEMP 36.4; O2SAT 97
--- NOTE | 2020-07-07 14:10 | WPDNEURORHBP ---
Subjective Date/time seen: 07/07/20 14:10 49 years old with primary rehab impairment category of his stroke and seizure disorder also hypertension and resultant left hemiparesis Review of Systems Review of Systems: All systems reviewed & are unremarkable except as noted in HPI and below Exam Narrative: Exam Narrative: yesterday when she was examined she had a seizure and remained postictal but this morning she is awake alert and recognized the physician though still she is not very spontaneously communicative her sister called and I personally explained to her what has happened to her when she was transferred from [facility] and also when she came to hear because she was completely unaware of what has happened to her. Patient herself today opens her eyes follows with the instruction, pupils are round regular reacting to light equally, there is no nystagmus, face is asymmetrical with flattening of the left nasolabial fold and obvious elevation with difficulties in handling the secretions, she has left hemiparetic but also weak on the right side, reflexes are brisk plantars are upgoing, heart regular, lungs clear with no rhonchi or crepitations, Objective Data Vital Signs Vital Signs: Vital Signs - 24 hr 07/06/20 21:35 07/07/20 05:24 07/07/20 08:00 Temperature 36.3 C L 36.4 C Pulse Rate 84 86 86 Respiratory Rate 16 18 18 Blood Pressure 107/53 L 92/49 L Pulse Oximetry 97 93 93 Intake/Output Intake/Output: Intake & Output 07/04/20 07/05/20 07/06/20 07/07/20 23:59 23:59 23:59 23:59 Intake Total 240 Balance 240 Meds/Results Medications: Active Medications Generic Name Dose Route Start Last Admin Trade Name Freq PRN Reason Stop Dose Admin Acetaminophen 650 mg 07/06/20 07:34 Acetaminophen 325 Mg Tablet PO Q4H PRN Pain or Fever Hydrocodone Bitart/Acetaminophen 1 tab 07/05/20 21:05 Hydrocodone/Acetaminophen (*Crx) 10-325 Mg Tablet PO Q8H PRN Pain Amlodipine Besylate 10 mg 07/06/20 09:00 07/07/20 11:27 Amlodipine Besylate 5 Mg Tablet PO 10 mg DAILY VERA Administration Atorvastatin Calcium 80 mg 07/05/20 21:00 07/06/20 20:31 Atorvastatin 40 Mg Tablet PO 80 mg HS VERA Administration Cilostazol 100 mg 07/06/20 06:30 07/07/20 05:25 Cilostazol 100 Mg Tablet PO 100 mg BIDAC VERA Administration Clopidogrel Bisulfate 75 mg 07/06/20 09:00 07/07/20 11:27 Clopidogrel Bisulfate 75 Mg Tablet PO 75 mg DAILY VERA Administration Fluoxetine HCl 20 mg 07/06/20 09:00 07/07/20 11:27 Fluoxetine Hcl 20 Mg Capsule PO 20 mg DAILY VERA Administration Lisinopril 20 mg 07/07/20 09:00 07/07/20 11:27 Lisinopril 20 Mg Tablet PO 20 mg QAM VERA Administration Nicotine 1 patch 07/06/20 09:00 07/07/20 11:27 Nicotine (*Pbkc) 7 Mg Patch TRANSDERM 1 patch DAILY VERA Administration Phenytoin 50 mg 07/06/20 21:00 07/06/20 20:31 Phenytoin 50 Mg Chew PO 50 mg HS VERA Administration Phenytoin Sodium 300 mg 07/05/20 21:00 07/06/20 20:31 Phenytoin Sodium 100 Mg Cap PO 300 mg HS VERA Administration Progress Note: A&P Assessment and Plan (1) Cerebrovascular accident: Code(s): I63.9 - Cerebral infarction, unspecified Status: Acute (2) Elevated blood sugar: Code(s): R73.9 - Hyperglycemia, unspecified Status: Acute (3) Hypokalemia: Code(s): E87.6 - Hypokalemia Status: Acute (4) Tobacco abuse: Code(s): Z72.0 - Tobacco use Status: Chronic (5) Seizure disorder: Code(s): G40.909 - Epilepsy, unspecified, not intractable, without status epilepticus Status: Chronic (6) Hypertension: Qualifiers: Hypertension type: unspecified Qualified Code(s): I10 - Essential (primary) hypertension Code(s): I10 - Essential (primary) hypertension Status: Chronic (7) Acute left hemiparesis: Code(s): G81.94 - Hemiplegia, unspecifi
--- NOTE | 2020-07-07 15:16 | PCDIET ---
Nutrition Follow-Up Complete: Involuntary weight loss related to CVA as evidenced by significant 9.9% weight loss x 2 weeks. Patient to consume 75% of meals/supplements or greater and maintain weight. Goal: Unable to reach PO goal. Will work to reach estimated nutrition needs via enteral nutrition Pt current nutrition is Jevity 1.2 with goal of 55ml/hr over 22hrs. Nutrition recommendation: Jevity 1.2 with goal of 65m/hr over 20 hours due to holding for Dilantin. Last recorded weight is 55.4 kg. Meds Noted:Dilantin Additional Notes: Pt with failed swallow study and NPO recommendation. Jevity 1.2 at 50ml/hr currently tolerated. Due to Dilantin interaction with enteral nutrition, recommendation to hold tube feedings two hours before and after administration of Dilantin at 2100. Plans to increase Jevity 1.2 to goal of 65ml/hr over 22hrs, with holding at [id number]. At goal of 65ml/hr over 20hrs, nutrition will provide 1560kcals, 72g protein, and 1049ml of free water. Water flush of 60ml q 4hrs to provide an additional 240ml of free water. If bolus feedings desired, recommend 260ml of Jevity 1.5, QID at 0700, 1100, 1500, 1900. We will follow every T/F for nutrition tolerance.
--- NOTE | 2020-07-07 17:13 | PC.NURSE ---
1713 CALLED TYLER MARTIN AND REPORTED OTHER FAMILY MEMBERS WANTING TO KNOW PT'S CONDITION. IT'S ALRIGHT TO GIVEN OUT INFORMATION TO JEAN-PAUL DAUGHTER [phone] AND TO GIVEN OUT INFORMATION TO GÓMEZ SISTER TO FADY.
[2020-07-07 20:00] VITALS: PULSE 89; RESP 20; O2SAT 97
[2020-07-07 20:38] VITALS: BP 127/70; PULSE 89; RESP 20; TEMP 35.7; O2SAT 97
[2020-07-07] MEDS: PHENYTOIN 50 MG CHEW PO (21:00)
[2020-07-07] MEDS: PHENYTOIN SODIUM 100 MG CAP 300 MG PO (21:00)
[2020-07-07] MEDS: ATORVASTATIN 40 MG TABLET 80 MG PO (21:00)
[2020-07-08 04:33] VITALS: BP 123/72; PULSE 90; RESP 18; TEMP 35.7; O2SAT 98
[2020-07-08] MEDS: cilostazoL 100 MG TABLET PO (06:24)
[2020-07-08 08:00] VITALS: PULSE 90; RESP 18; O2SAT 98
[2020-07-08] MEDS: CLOPIDOGREL BISULFATE 75 MG TABLET PO (09:57)
[2020-07-08] MEDS: FLUoxetine HCL 20 MG CAPSULE PO (09:57)
[2020-07-08] MEDS: lisinopriL 20 MG TABLET PO (09:57)
[2020-07-08] MEDS: amLODIPine BESYLATE 5 MG TABLET 10 MG PO (09:57)
[2020-07-08 10:00] VITALS: TEMP 35.7
[2020-07-08] MEDS: ACETAMINOPHEN 325 MG TABLET 650 MG PO (10:00)
[2020-07-08 14:54] VITALS: BP 119/67; PULSE 105; RESP 20; TEMP 36.1; O2SAT 99
--- NOTE | 2020-07-08 18:18 | PC.NURSE ---
dann pulled out unable to give 1700 meds
[2020-07-08 20:16] VITALS: BP 115/68; PULSE 92; RESP 18; TEMP 36.3; O2SAT 97
[2020-07-08] MEDS: PHENYTOIN SODIUM INJ 100 MG/2 ML VIAL (*BKC) IV PUSH (20:18)
[2020-07-09 05:46] VITALS: BP 131/75; PULSE 88; RESP 20; TEMP 36.1; O2SAT 98
[2020-07-09] MEDS: PHENYTOIN SODIUM INJ 100 MG/2 ML VIAL (*BKC) IV PUSH ×3 (05:48→21:11)
[2020-07-09] MEDS: cilostazoL 100 MG TABLET PO ×2 (12:08→18:27)
[2020-07-09] MEDS: amLODIPine BESYLATE 5 MG TABLET 10 MG PO (12:08)
[2020-07-09] MEDS: FLUoxetine HCL 20 MG CAPSULE PO (12:09)
[2020-07-09] MEDS: lisinopriL 20 MG TABLET PO (12:09)
[2020-07-09] MEDS: NICOTINE (*PBKC) 7 MG PATCH 1 PATCH TRANSDERM (12:09)
[2020-07-09] MEDS: CLOPIDOGREL BISULFATE 75 MG TABLET PO (12:09)
--- NOTE | 2020-07-09 12:10 | WPDNEURORHBP ---
Subjective Date/time seen: 07/09/20 12:10 49 years old with bihemispheric stroke but most recent 1 on the right side of the brain with resultant left hemiparesis, unfortunately she pulled her tube out last night that will be reinserted she has not had any seizures since the 1st seizure 1 day of admission. She is becoming more alert and more awake and following the instructions fairly well. There is no recent lab. A blood pressure today is 131/75 with pulse 88 respiration 20 temperature 36.1? pulse ox 98% Review of Systems Review of Systems: All systems reviewed & are unremarkable except as noted in HPI and below Exam Narrative: Exam Narrative: on examination today she is awake alert she recognized the physician, his speech of low volume not dysarthric nor dysphasic, extraocular movements are full with no nystagmus, face is symmetrical, motor examination revealed her to have left hemiparesis with hyperreflexia upgoing plantar response, heart is regular lungs clear abdomen is soft nontender normal bowel sounds Objective Data Vital Signs Vital Signs: Vital Signs - 24 hr 07/08/20 14:54 07/08/20 20:16 07/09/20 05:46 Temperature 36.1 C L 36.3 C L 36.1 C L Pulse Rate 105 H 92 88 Respiratory Rate 20 18 20 Blood Pressure 119/67 115/68 131/75 Pulse Oximetry 99 97 98 Intake/Output Intake/Output: Intake & Output 07/06/20 07/07/20 07/08/20 07/09/20 23:59 23:59 23:59 23:59 Intake Total 854 690 1660 Output Total 900 Balance 240 804 540 Meds/Results Medications: Active Medications Generic Name Dose Route Start Last Admin Trade Name Freq PRN Reason Stop Dose Admin Acetaminophen 650 mg 07/06/20 07:34 07/08/20 10:00 Acetaminophen 325 Mg Tablet PO 650 mg Q4H PRN Administration Pain or Fever Hydrocodone Bitart/Acetaminophen 1 tab 07/05/20 21:05 Hydrocodone/Acetaminophen (*Crx) 10-325 Mg Tablet PO Q8H PRN Pain Amlodipine Besylate 10 mg 07/06/20 09:00 07/09/20 12:08 Amlodipine Besylate 5 Mg Tablet PO 10 mg DAILY VERA Administration Atorvastatin Calcium 80 mg 07/05/20 21:00 07/08/20 21:40 Atorvastatin 40 Mg Tablet PO Not Given HS VERA Cilostazol 100 mg 07/06/20 06:30 07/09/20 12:08 Cilostazol 100 Mg Tablet PO 100 mg BIDAC VEAR Administration Clopidogrel Bisulfate 75 mg 07/06/20 09:00 07/09/20 12:09 Clopidogrel Bisulfate 75 Mg Tablet PO 75 mg DAILY VERA Administration Fluoxetine HCl 20 mg 07/06/20 09:00 07/09/20 12:09 Fluoxetine Hcl 20 Mg Capsule PO 20 mg DAILY VERA Administration Lisinopril 20 mg 07/07/20 09:00 07/09/20 12:09 Lisinopril 20 Mg Tablet PO 20 mg QAM VERA Administration Nicotine 1 patch 07/06/20 09:00 07/09/20 12:09 Nicotine (*Pbkc) 7 Mg Patch TRANSDERM 1 patch DAILY VERA Administration Phenytoin Sodium 100 mg 07/08/20 22:00 07/09/20 05:48 Phenytoin Sodium Inj 100 Mg/2 Ml Vial (*Bkc) IV PUSH 100 mg Q8HR VERA Administration Progress Note: A&P Assessment and Plan (1) Cerebrovascular accident: Code(s): I63.9 - Cerebral infarction, unspecified Status: Acute (2) Suspected cerebrovascular accident (CVA): Code(s): R09.89 - Other specified symptoms and signs involving the circulatory and respiratory systems Status: Acute (3) Elevated blood sugar: Code(s): R73.9 - Hyperglycemia, unspecified Status: Acute (4) Hypokalemia: Code(s): E87.6 - Hypokalemia Status: Acute (5) Tobacco abuse: Code(s): Z72.0 - Tobacco use Status: Chronic (6) Seizure disorder: Code(s): G40.909 - Epilepsy, unspecified, not intractable, without status epilepticus Status: Chronic (7) Hypertension: Qualifiers: Hypertension type: unspecified Qualified Code(s): I10 - Essential (primary) hypertension Code(s): I10 - Essential (primary) hypertension Status: Chronic (8) Acute left hemiparesis: Code(s): G81.94
[2020-07-09 14:00] VITALS: BP 119/74; PULSE 109; RESP 21; TEMP 36.4; O2SAT 98
[2020-07-09] MEDS: ATORVASTATIN 40 MG TABLET 80 MG PO (21:12)
[2020-07-10] MEDS: PHENYTOIN SODIUM INJ 100 MG/2 ML VIAL (*BKC) IV PUSH ×3 (05:29→21:51)
[2020-07-10 05:43] VITALS: BP 129/64; PULSE 98; RESP 18; TEMP 36.5; O2SAT 97
[2020-07-10 08:00] VITALS: PULSE 98; RESP 18; O2SAT 97
[2020-07-10] MEDS: CLOPIDOGREL BISULFATE 75 MG TABLET PO (09:30)
[2020-07-10] MEDS: lisinopriL 20 MG TABLET PO (09:30)
[2020-07-10] MEDS: amLODIPine BESYLATE 5 MG TABLET 10 MG PO (09:30)
[2020-07-10] MEDS: FLUoxetine HCL 20 MG CAPSULE PO (09:30)
[2020-07-10] MEDS: cilostazoL 100 MG TABLET PO ×2 (09:31→16:35)
[2020-07-10] MEDS: NICOTINE (*PBKC) 7 MG PATCH 1 PATCH TRANSDERM (09:31)
--- NOTE | 2020-07-10 11:38 | WPDNEURORHBP ---
Subjective Date/time seen: 07/10/20 11:38 49 years old with bihemispheric stroke, and fecal Ts in swallowing in addition to ongoing history of seizure disorder for which she is taking the anti convulsant. Over the last 48 hours she has pulled out the tube x2 requiring reinsurtion. this time will try to put the G-tube Review of Systems Review of Systems: All systems reviewed & are unremarkable except as noted in HPI and below Exam Narrative: Exam Narrative: on examination today her blood pressure is 129/64 with pulse of 98 respiration 18 and temperature 36.5? and pulse ox 97, he is awake alert follows instruction pupils round regular feels the vision full to threat stimuli extraocular movements were spontaneously full with no nystagmus facial grimace was symmetrical tongue was in the oral cavity palate move sluggishly motor examination revealed her to have bihemispheric paresis but left side more than the right in addition to hyperreflexia on the left side lungs are clear heart regular abdomen soft Objective Data Vital Signs Vital Signs: Vital Signs - 24 hr 07/09/20 14:00 07/10/20 05:43 Temperature 36.4 C L 36.5 C Pulse Rate 109 H 98 Respiratory Rate 21 H 18 Blood Pressure 119/74 129/64 Pulse Oximetry 98 97 Intake/Output Intake/Output: Intake & Output 07/07/20 07/08/20 07/09/20 07/10/20 23:59 23:59 23:59 23:59 Intake Total 804 1440 470 Output Total 900 350 Balance 804 540 120 Meds/Results Medications: Active Medications Generic Name Dose Route Start Last Admin Trade Name Howieq PRN Reason Stop Dose Admin Acetaminophen 650 mg 07/06/20 07:34 07/08/20 10:00 Acetaminophen 325 Mg Tablet PO 650 mg Q4H PRN Administration Pain or Fever Hydrocodone Bitart/Acetaminophen 1 tab 07/05/20 21:05 Hydrocodone/Acetaminophen (*Crx) 10-325 Mg Tablet PO Q8H PRN Pain Amlodipine Besylate 10 mg 07/06/20 09:00 07/10/20 09:30 Amlodipine Besylate 5 Mg Tablet PO 10 mg DAILY VERA Administration Atorvastatin Calcium 80 mg 07/05/20 21:00 07/09/20 21:12 Atorvastatin 40 Mg Tablet PO 80 mg HS VERA Administration Cilostazol 100 mg 07/06/20 06:30 07/10/20 09:31 Cilostazol 100 Mg Tablet PO 100 mg BIDAC VERA Administration Clopidogrel Bisulfate 75 mg 07/06/20 09:00 07/10/20 09:30 Clopidogrel Bisulfate 75 Mg Tablet PO 75 mg DAILY VERA Administration Fluoxetine HCl 20 mg 07/06/20 09:00 07/10/20 09:30 Fluoxetine Hcl 20 Mg Capsule PO 20 mg DAILY VERA Administration Lisinopril 20 mg 07/07/20 09:00 07/10/20 09:30 Lisinopril 20 Mg Tablet PO 20 mg QAM VERA Administration Nicotine 1 patch 07/06/20 09:00 07/10/20 09:31 Nicotine (*Pbkc) 7 Mg Patch TRANSDERM 1 patch DAILY VERA Administration Phenytoin Sodium 100 mg 07/08/20 22:00 07/10/20 05:29 Phenytoin Sodium Inj 100 Mg/2 Ml Vial (*Bkc) IV PUSH 100 mg Q8HR VERA Administration Radiology Results: ITS Impressions Tube Placement 07/10/20 09:20 IMPRESSION: 1: Feeding tube tip in the stomach, retracted since prior study. Progress Note: A&P Assessment and Plan (1) Cerebrovascular accident: Code(s): I63.9 - Cerebral infarction, unspecified Status: Acute (2) Suspected cerebrovascular accident (CVA): Code(s): R09.89 - Other specified symptoms and signs involving the circulatory and respiratory systems Status: Acute (3) Elevated blood sugar: Code(s): R73.9 - Hyperglycemia, unspecified Status: Acute (4) Hypokalemia: Code(s): E87.6 - Hypokalemia Status: Acute (5) Tobacco abuse: Code(s): Z72.0 - Tobacco use Status: Chronic (6) Seizure disorder: Code(s): G40.909 - Epilepsy, unspecified, not intractable, without status epilepticus Status: Chronic (7) Hypertension: Qualifiers: Hypertension type: unspecified Qualified Code(s): I10 - Essential (primary) hype
[2020-07-10 13:50] VITALS: BP 100/63; PULSE 101; RESP 18; TEMP 36.4; O2SAT 98
--- NOTE | 2020-07-10 15:32 | WPDGICN ---
Assessment and Plan Assessment and plan (1) Dysphagia as late effect of cerebrovascular accident (CVA): Code(s): I69.391 - Dysphagia following cerebral infarction Status: Acute Assessment and Plan: she will need g-tube, pulled out DHT and still confused and history of seizures because recent stroke. need to hold off plavix for another day and proceed with g-tube placement this Friday I talked to her sibling and agreeable to procedure (2) Cerebrovascular accident: Code(s): I63.9 - Cerebral infarction, unspecified Status: Acute Assessment and Plan: neurology on board, medical treatment pt/ot (3) Acute left hemiparesis: Code(s): G81.94 - Hemiplegia, unspecified affecting left nondominant side Status: Acute (4) Hypertension: Qualifiers: Hypertension type: unspecified Qualified Code(s): I10 - Essential (primary) hypertension Code(s): I10 - Essential (primary) hypertension Status: Chronic Assessment and Plan: on treatment (5) Seizure disorder: Code(s): G40.909 - Epilepsy, unspecified, not intractable, without status epilepticus Status: Chronic Assessment and Plan: on dilantin (6) Tobacco abuse: Code(s): Z72.0 - Tobacco use Status: Chronic GI Consult Note Consult date/time: 07/10/20 15:32 Reason for consult: anorexia, recent stroke HPI: Gogo Johnson is a 49 year old female admitted with history of HTN admitted to the hospital after had new onset of stroke and left-sided hemiparesis, also seizures. She was transferred to rehabilitation, DHT was placed two times because she pulled it out. It had to be placed for the third time and neurology is recommending to proceed with G-tube placement. MRI showed acute right laila infarct RN says that she is confused because stroke, also has seizures on dilantin. She is also taking plavix. Review of Systems Constitutional: Constitutional: Denies chills Eyes: Eyes: Reports no additional eye complaints ENT: Reports Normal hearing present and Reports dysphagia Cardiovascular: Cardiovascular: Denies chest pain Respiratory: Respiratory: Denies cough Gastrointestinal: Comments: anorexia Genitourinary: Genitourinary: Denies hematuria Integumentary/Breasts: Skin/Breast: Denies skin pain Neurologic: Reports confusion and Reports numbness Psychiatric: Psychiatric: Reports anxiety PMFSH Past Medical History Medical History Hypertension Seizure disorder Tobacco abuse Surgical History Surgical History History of laparotomy Family History Family History Sibling Heart disease Social History Social History Social History: The patient has 2 sons in the live with her. She is . She is disabled. She does not have a durable power environmental attorney for healthcare. She is a full code. She denies any alcohol or substance abuse. Smoking packs per day: 1.5 Smoking cigarettes per day: 30.0 Smoking status: Current every day smoker Tobacco type: cigarettes Alcohol intake: never Substance use: never Spiritual care concerns: No Meds Home Medications and Allergies Home Medications Medication Instructions Recorded Confirmed Type amlodipine 10 mg PO DAILY 06/26/20 07/05/20 History hydrocodone-acetaminophen [[place]] 1 tablet PO Q8H PRN 06/26/20 07/05/20 History phenytoin sodium extended 300 mg PO HS 06/26/20 07/05/20 History [Dilantin Extended] atorvastatin 80 mg PO HS 07/05/20 07/05/20 History cilostazol 100 mg PO BID 07/05/20 07/05/20 History clopidogrel 75 mg PO DAILY 07/05/20 07/05/20 History fluoxetine 20 mg PO DAILY 07/05/20 07/05/20 History lisinopril 40 mg PO DAILY 07/05/20 07/05/20 History nicotine 1 patch TRANSDERMAL DAILY 07/05/20
--- NOTE | 2020-07-10 16:21 | PC.NURSE ---
Care coordination called to address financial concerns with patient house payment. Pt daughter called regarding house payment issues with pt tara. Pt unable to verbalize contact information for tara. Voicemail left with care coordination at 1530. No additional information received at this time. Will continue to follow up.
--- NOTE | 2020-07-10 16:25 | PC.NURSE ---
07/10/20 Consult to Physician Routine Comment: J Tube Placement Consulting Provider: Dick Powers Reason for consultation: J-Tube Placement Has provider been notified: No Provider at patient bedside evaluating patient at 1430. Provider stated he will speak with family regarding options for placing tube.
--- NOTE | 2020-07-10 16:37 | PCSTNOTE ---
Full ST minutes could not be achieved on 07-06-20 as pt was too lethargic.
[2020-07-10 20:31] VITALS: BP 114/62; PULSE 102; RESP 20; TEMP 36.6; O2SAT 97
[2020-07-10] MEDS: ATORVASTATIN 40 MG TABLET 80 MG PO (21:46)
[2020-07-11 05:19] VITALS: BP 134/70; PULSE 98; RESP 20; TEMP 36.3; O2SAT 98
[2020-07-11] MEDS: PHENYTOIN SODIUM INJ 100 MG/2 ML VIAL (*BKC) IV PUSH ×3 (06:04→21:37)
--- NOTE | 2020-07-11 09:08 | PC.NURSE ---
Currently off the floor for possible Dobhoff replacement.
[2020-07-11] MEDS: amLODIPine BESYLATE 5 MG TABLET 10 MG PO (09:58)
[2020-07-11] MEDS: NICOTINE (*PBKC) 7 MG PATCH 1 PATCH TRANSDERM (09:58)
[2020-07-11] MEDS: lisinopriL 20 MG TABLET PO (09:58)
[2020-07-11] MEDS: FLUoxetine HCL 20 MG CAPSULE PO (09:58)
--- NOTE | 2020-07-11 10:25 | WPDNEURORHBP ---
Subjective Date/time seen: 07/11/20 10:25 49 years old with bihemispheric stroke and dysphagia in addition to the history of underlying seizure disorder and also while here pulling the tube out in an out several times seen by the ship's pilot and plan to have the G-tube she will be kept off the Plavix and the GT will be placed on Friday, remains afebrile with temp of 36.3? pulse of 98 respiration 20 blood pressure 134/70, as mentioned above she would be a taken off Plavix for the G-tube placement other medications to be continued as such particularly Dilantin 100 mg IV push q.8 hours and has no new lab Review of Systems Review of Systems: All systems reviewed & are unremarkable except as noted in HPI and below Exam Const: General: ill appearing and lethargic Nutritional Appearance: average body habitus Orientation/consciousness: oriented to person and oriented to place Limitations: behavioral limitations and physical limitations HENMT: Head: normocephalic General nose exam: Normal external nose present and No nasal discharge present Face and sinus: normal facial exam Mouth: Yes Normal oral and palatal mucosa present and Yes tongue normal Eyes: General: appearance normal, both eyes and all related structures Eyelids: eyelids normal Conjunctivae: conjunctivae normal Sclera: sclerae normal Cornea: corneas normal Pupils: Equal, round and reactive pupils present EOM: EOMs intact bilaterally Neck: Carotids: normal carotid upstroke Lymphatic: no lymphadenopathy noted Resp: Effort & Inspection: normal respiratory effort Auscultation: clear to auscultation bilaterally Cardio: Jugular venous distension: no JVD Rate: regular rate Rhythm: regular rhythm Peripheral pulses: Peripheral pulses 2+ throughout GI: Percussion: Yes normal to percussion Auscultation: normal bowel sounds Skin: General skin exam: no rashes or lesions noted Neuro: General: oriented to person and no meningeal signs Cranial nerves: Yes Equal, round and reactive pupils present, Yes Bilaterally intact EOM present, Yes Nystagmus not present, Yes Midline tongue present and Yes Ability to bilaterally rotate head present Speech: Abnormal speech present Gait exam (Neuro): Unable to assess gait Motor exam (neuro): Other motor observations present Sensory Exam: Sensory deficit (Neuro) Deep tendon reflexes (DTR's): Right triceps reflex intensity grade: 1+, Left triceps reflex intensity grade: 2+, Rt Biceps (C5, C6): 1+, Left biceps reflex intensity grade: 2+, Right brachioradialis reflex intensity grade: 1+, Left brachioradialis reflex intensity grade: 2+, Right patellar reflex intensity grade: 1+, Right ankle reflex intensity grade: 1+ and Left ankle reflex intensity grade: 2+ Plantar Reflex Responses: upgoing (positive Babinski): bilateral Psych: Speech and movement: Slurred speech present and Slowed speech present (Psych) Affect: Indifferent affect present Attitude: cooperative Insight: Poor insight present (Psych) Judgement: Poor judgement present (Psych) Objective Data Vital Signs Vital Signs: Vital Signs - 24 hr 07/10/20 13:50 07/10/20 20:31 07/11/20 05:19 Temperature 36.4 C L 36.6 C 36.3 C L Pulse Rate 101 H 102 H 98 Respiratory Rate 18 20 20 Blood Pressure 100/63 114/62 134/70 Pulse Oximetry 98 97 98 Intake/Output Intake/Output: Intake & Output 07/08/20 07/09/20 07/10/20 07/11/20 23:59 23:59 23:59 23:59 Intake Total 1440 470 755 408 Output Total 900 350 325 300 Balance 540 120 430 108 Meds/Results Medications: Active Medications Generic Name Dose Route Start Last Admin Trade Name Freq PRN Reason Stop Dose Admin Acetaminophen 650 mg 07/06/20 07:34 07/08/20 10:00 Acetaminophen 325 Mg Tablet PO 650 mg Q4H PRN Administration Pain or Fever Hydrocodone Bitart/Acetaminophen 1 tab 07/05/20 21:05 Hydrocodone/Acetaminophen (*Crx) 10-325 Mg Tablet PO Q8H PRN Pain Amlodipine Besylate 10 mg 07/06/20 09:
--- NOTE | 2020-07-11 13:21 | PCDIET ---
Nutrition Follow-Up Complete: Nutrition Diagnosis: Involuntary weight loss related to CVA as evidenced by significant 9.9% weight loss x 2 weeks. Nutrition Goal: Patient to consume 75% of meals/supplements or greater and maintain weight. Goal no longer applicable. Patient getting Dobhoff replaced today with plan for permanent feeding tube placement tomorrow. No longer on oral Dilantin (now IV); thus recommend goal rate of 60mL/hr Jevity 1.2 x 22 hours/day for 1584kcal, 73g protein and 1065mL free water. Suggest 50mL water flush every 4 hours. Last recorded weight is 55.4 kg. Recommend obtaining new weight. Bowel Motility: Last documented BM on 07/09/20. Labs Reviewed: No new labs available. Meds Noted: Norvasc, Lipitor, Plavix, Lisinopril, Dilantin Additional Notes: Left foot with diabetic ulcer. New goal: Patient to meet estimated nutritional needs. Nutrition Monitoring and Evaluation: Follow up every Friday/Friday.
[2020-07-11 14:00] VITALS: BP 133/59; PULSE 98; RESP 20; TEMP 36; O2SAT 97
--- NOTE | 2020-07-11 14:14 | WPDGIPROGNO ---
Progress Note: A&P Assessment and Plan (1) Dysphagia as late effect of cerebrovascular accident (CVA): Code(s): I69.391 - Dysphagia following cerebral infarction Status: Acute Assessment and Plan: egd with peg placement tomorrow plavix has been on hold (2) Cerebrovascular accident: Code(s): I63.9 - Cerebral infarction, unspecified Status: Acute (3) Seizure disorder: Code(s): G40.909 - Epilepsy, unspecified, not intractable, without status epilepticus Status: Chronic Assessment and Plan: on medicatio, neurology on board (4) Hypertension: Qualifiers: Hypertension type: unspecified Qualified Code(s): I10 - Essential (primary) hypertension Code(s): I10 - Essential (primary) hypertension Status: Chronic (5) Acute left hemiparesis: Code(s): G81.94 - Hemiplegia, unspecified affecting left nondominant side Status: Acute Subjective Date/time seen: 07/11/20 14:14 Interval history: no changes, confused. Tolerating tube feeding by DHT Review of Systems Review of Systems: All systems reviewed & are unremarkable except as noted in HPI and below Exam Const: General: no acute distress Other: awake but confused, lethargic HENMT: General nose exam: Normal nares present Other: DHT in place Eyes: Sclera: sclerae normal Neck: Neck: supple Resp: Effort & Inspection: normal respiratory effort Cardio: Rate: regular rate GI: Inspection: non-distended GI Palp: Yes Soft to palpation and No Tenderness to palpation present (GI) Auscultation: normal bowel sounds Skin: General skin exam: normal color Neuro: Other: left side hemiparesis, confusion Extrem: General: no edema Psych: Affect: Anxious affect present Objective Data Vital Signs Vital Signs: Vital Signs - 24 hr 07/10/20 20:31 07/11/20 05:19 Temperature 97.8 F 97.4 F L Pulse Rate 102 H 98 Respiratory Rate 20 20 Blood Pressure 114/62 134/70 Pulse Oximetry 97 98 Intake/Output Intake/Output: Intake & Output 07/08/20 07/09/20 07/10/20 07/11/20 23:59 23:59 23:59 23:59 Intake Total 1440 470 755 408 Output Total 900 350 325 300 Balance 540 120 430 108 Meds/Results Medications: Active Medications Generic Name Dose Route Start Last Admin Trade Name Freq PRN Reason Stop Dose Admin Acetaminophen 650 mg 07/06/20 07:34 07/08/20 10:00 Acetaminophen 325 Mg Tablet PO 650 mg Q4H PRN Administration Pain or Fever Hydrocodone Bitart/Acetaminophen 1 tab 07/05/20 21:05 Hydrocodone/Acetaminophen (*Crx) 10-325 Mg Tablet PO Q8H PRN Pain Amlodipine Besylate 10 mg 07/06/20 09:00 07/11/20 09:58 Amlodipine Besylate 5 Mg Tablet PO 10 mg DAILY VERA Administration Atorvastatin Calcium 80 mg 07/05/20 21:00 07/10/20 21:46 Atorvastatin 40 Mg Tablet PO 80 mg HS VERA Administration Cefazolin Sodium 1 gm 07/12/20 11:09 Cefazolin Sodium 1 Gm Vial IV PUSH 07/12/20 11:10 ONCE ONE Cilostazol 100 mg 07/06/20 06:30 07/11/20 07:36 Cilostazol 100 Mg Tablet PO Not Given BIDAC VERA Clopidogrel Bisulfate 75 mg 07/06/20 09:00 07/10/20 09:30 Clopidogrel Bisulfate 75 Mg Tablet PO 75 mg DAILY VERA Administration Fluoxetine HCl 20 mg 07/06/20 09:00 07/11/20 09:58 Fluoxetine Hcl 20 Mg Capsule PO 20 mg DAILY VERA Administration Lisinopril 20 mg 07/07/20 09:00 07/11/20 09:58 Lisinopril 20 Mg Tablet PO 20 mg QAM VERA Administration Nicotine 1 patch 07/06/20 09:00 07/11/20 09:58 Nicotine (*Pbkc) 7 Mg Patch TRANSDERM 1 patch DAILY VERA Administration Phenytoin Sodium 100 mg 07/08/20 22:00 07/11/20 06:04 Phenytoin Sodium Inj 100 Mg/2 Ml Vial (*Bkc) IV PUSH 100 mg Q8HR VERA Administration Radiology Results: ITS Impressions Tube Placement 07/11/20 09:27 IMPRESSION: 1. Fluoroscopy guided nasoenteric tube placement with tip in the stomach.
[2020-07-11 14:45] VITALS: BMI 11.0
--- NOTE | 2020-07-11 16:01 | PCPTNOTE ---
The patient treatment was not able to be completed on 07-11-2020 due to minimal to resistive response to therapy session unable to participate from patient with encouragement from therapist. Patient missed 20 minutes of overall therapy minutes this date. Will plan to continue treatment per plan of care.
[2020-07-11] MEDS: cilostazoL 100 MG TABLET PO (16:55)
--- NOTE | 2020-07-11 18:59 | P.PNAN_ITS ---
Anes - Eval Pre Procedure Procedure: Operation Date: 07/12/20 12:00 Proposed Procedures p Esophagogastroduodenoscopy - Dick Powers MD s Percutaneous Endoscopic Gastrostomy - Dick Powers MD Date/Time: 07/11/20 18:59 Preop Diagnosis: Dysphagia Pre Op Diagnosis: CVA Patient Data Age: 49 Gender: F Height: 5 ft 2.5 in Weight: 55.4 kg Last Vital Signs Temp 96.8 F L 07/11/20 14:00 Pulse 98 07/11/20 14:00 Resp 20 07/11/20 14:00 BP 133/59 L 07/11/20 14:00 Pulse Ox 97 07/11/20 14:00 Allergies Allergy/AdvReac Type Severity Reaction Status Date / Time aspirin Allergy Seizure Verified 06/26/20 18:55 Home Medications Medication Instructions Recorded Confirmed Type amlodipine 10 mg PO DAILY 06/26/20 07/05/20 History hydrocodone-acetaminophen [[place]] 1 tablet PO Q8H PRN 06/26/20 07/05/20 History phenytoin sodium extended 300 mg PO HS 06/26/20 07/05/20 History [Dilantin Extended] atorvastatin 80 mg PO HS 07/05/20 07/05/20 History cilostazol 100 mg PO BID 07/05/20 07/05/20 History clopidogrel 75 mg PO DAILY 07/05/20 07/05/20 History fluoxetine 20 mg PO DAILY 07/05/20 07/05/20 History lisinopril 40 mg PO DAILY 07/05/20 07/05/20 History nicotine 1 patch TRANSDERMAL DAILY 07/05/20 07/05/20 History Patient hx anesthesia problems: none Family hx anesthesia problems: none PMFSH Past Medical History Medical History (Updated 07/11/20 @ 19:01 by Christopher Hawthorne CRNA) Acute left hemiparesis Depression Dysphagia as late effect of cerebrovascular accident (CVA) Elevated blood sugar Head ache Hypertension Hypokalemia Seizure disorder Tobacco abuse Surgical History Surgical History History of laparotomy Family History Family History Sibling Heart disease Social History Social History Social History: The patient has 2 sons in the live with her. She is . She is disabled. She does not have a durable power stock or delivery clerk for healthcare. She is a full code. She denies any alcohol or substance abuse. Smoking packs per day: 1.5 Smoking cigarettes per day: 30.0 Smoking status: Current every day smoker Tobacco type: cigarettes Alcohol intake: never Substance use: never Spiritual care concerns: No Exam Day of Procedure 07/11/20 18:59
[2020-07-11 20:00] VITALS: PULSE 98; RESP 20; O2SAT 97
[2020-07-11] MEDS: ATORVASTATIN 40 MG TABLET 80 MG PO (21:37)
[2020-07-11 22:00] VITALS: BP 132/74; PULSE 78; RESP 22; TEMP 36.8; O2SAT 97
[2020-07-12] VITALS (7 sets, daily range): BP systolic 102–137; BP diastolic 52–88; PULSE 90–109; RESP 16–24; TEMP 36.3–36.9; O2SAT 95–98
[2020-07-12] MEDS: cilostazoL 100 MG TABLET PO (06:06)
[2020-07-12] MEDS: PHENYTOIN SODIUM INJ 100 MG/2 ML VIAL (*BKC) IV PUSH (06:06)
[2020-07-12 06:25] LABS: Glucose Point of Care 153 (65-105)
--- NOTE | 2020-07-12 10:03 | PC.NURSE ---
pt refused meds this morning. pt has been NPO after midnight for peg placement today. Pt does have dobhoff in place. updated.
--- NOTE | 2020-07-12 11:04 | PCPTNOTE ---
The patient treatment was not able to be completed on 07/12/20 in AM due to patient leaving room for medical procedure. Will attempt to see patient in PM as appropriate and plan to continue treatment per plan of care. Karen Johnson, JOHANA
--- NOTE | 2020-07-12 11:05 | PC.NURSE ---
pt left floor to OR for peg placement and egd.
[2020-07-12] MEDS: LACTATED RINGERS 1,000 ML 150 ML IV CONT (11:16)
--- NOTE | 2020-07-12 11:46 | P.PNAN_ITS ---
Anes - Initial Pre Proc Eval Procedure: Operation Date: 07/12/20 12:00 Proposed Procedures p Esophagogastroduodenoscopy - iDck Powers MD s Percutaneous Endoscopic Gastrostomy - Dick Powers MD Date/Time: 07/12/20 11:46 Surgeon: Romel Slater MD Pre Op Diagnosis: CVA Patient Data Age: 49 Gender: F Height: 5 ft 2.5 in Weight: 55.4 kg Last Vital Signs Temp 97.8 F 07/12/20 11:05 Pulse 109 H 07/12/20 11:05 Resp 16 07/12/20 11:05 BP 126/73 07/12/20 11:05 Pulse Ox 95 07/12/20 11:05 Allergies Allergy/AdvReac Type Severity Reaction Status Date / Time aspirin Allergy Seizure Verified 06/26/20 18:55 Home Medications Medication Instructions Recorded Confirmed Type amlodipine 10 mg PO DAILY 06/26/20 07/05/20 History hydrocodone-acetaminophen [[place]] 1 tablet PO Q8H PRN 06/26/20 07/05/20 History phenytoin sodium extended 300 mg PO HS 06/26/20 07/05/20 History [Dilantin Extended] atorvastatin 80 mg PO HS 07/05/20 07/05/20 History cilostazol 100 mg PO BID 07/05/20 07/05/20 History clopidogrel 75 mg PO DAILY 07/05/20 07/05/20 History fluoxetine 20 mg PO DAILY 07/05/20 07/05/20 History lisinopril 40 mg PO DAILY 07/05/20 07/05/20 History nicotine 1 patch TRANSDERMAL DAILY 07/05/20 07/05/20 History Laboratory Tests 07/12/20 06:23 POC Capillary Glucose 153 mg/dl H mg/dl (65-105) Patient hx anesthesia problems: none Family hx anesthesia problems: none PMFSH Past Medical History Medical History (Updated 07/11/20 @ 19:01 by Christopher Hawthorne CRNA) Acute left hemiparesis Depression Dysphagia as late effect of cerebrovascular accident (CVA) Elevated blood sugar Head ache Hypertension Hypokalemia Seizure disorder Tobacco abuse Surgical History Surgical History History of laparotomy Family History Family History Sibling Heart disease Social History Social History Social History: The patient has 2 sons in the live with her. She is . She is disabled. She does not have a durable power workers compensation defense attorney for healthcare. She is a full code. She denies any alcohol or substance abuse. Smoking packs per day: 1.5 Smoking cigarettes per day: 30.0 Smoking status: Current every day smoker Tobacco type: cigarettes Alcohol intake: never Substance use: never Spiritual care concerns: No Anes - Eval Final PreProcedure Day of Procedure 07/12/20 11:46 Patient weight: normal Heart: regular rate and rhythm Lungs: clear to auscultation Airway: Mallampati scale class II Neurological: alert and oriented Last oral intake: >/= 8 hours ASA classification: IV Emergent: no Anesthetic plan: proceed Anesthesia type and monitoring: general GIVS and standard monitoring Informed Consent: The patient's anesthetic plan and its attendant risks and benefits were discussed with the patient/family/POA. Questions were solicited and answers provided to the satisfaction of the patient/family/POA.
[2020-07-12] MEDS: ceFAZolin SODIUM 1 GM VIAL IV PUSH (12:33)
--- NOTE | 2020-07-12 13:25 | PC.NURSE ---
pt arrived back to floor with no distress noted.
--- NOTE | 2020-07-12 14:12 | PCDIET ---
Discussed with RN order to start tube feedings in 6 hours. Given plan to change to Dilantin per tube TID and to accommodate therapy schedule, recommend: 240mL Jevity 1.2 bolus TID, and 75mL/hr Jevity 1.2 x 8 hours overnight This will provide 1584kcal, 73g protein and 1065mL free water. Recommend 50mL water flush after each bolus feeding and every 4 hours with nocturnal feedings.
--- NOTE | 2020-07-12 14:56 | PCSTNOTE ---
The patient treatment was not able to be completed on 07/12/20 due to patient lethargy following surgery for g-tube placement]. Will plan to continue treatment per plan of care.
--- NOTE | 2020-07-12 15:02 | WPDNEURORHBP ---
Subjective Date/time seen: 07/12/20 15:02 49 years old seen by the jet mechanic for dysphagia as a late effect of cerebrovascular accident and also for the intention of PEG placement in addition to all the other comorbid conditions underwent the procedure no specific problems remains afebrile with temp of 36.3? pulse 100 respiration 18 pulse ox 97% and blood pressure 136/72 phenytoin level on 07/06 were 12 as compared to 7 when she came in Review of Systems Review of Systems: All systems reviewed & are unremarkable except as noted in HPI and below Exam Const: General: cooperative and comfortable Nutritional Appearance: thin and underweight Orientation/consciousness: oriented to person HENMT: Head: normocephalic Ears: hearing grossly normal bilaterally General nose exam: No nasal discharge present Face and sinus: normal facial exam Mouth: Yes Normal oral and palatal mucosa present Eyes: General: appearance normal, both eyes and all related structures Neck: Neck: full ROM Resp: Effort & Inspection: normal respiratory effort Auscultation: clear to auscultation bilaterally Cardio: Jugular venous distension: no JVD Rate: regular rate Rhythm: regular rhythm Back/Spine/Pelvis: Back: no CVA tenderness Skin: General skin exam: no rashes or lesions noted Neuro: General: oriented to person and Unable to assess gait Cranial nerves: Yes Equal, round and reactive pupils present, Yes Nystagmus not present, Yes Normal facial strength present, Yes Midline tongue present and Yes Ability to bilaterally elevate shoulders present Speech: Abnormal speech present (slow) Gait exam (Neuro): Unable to assess gait Motor exam (neuro): Motor abnormalities not present and Abnormal motor strength present Sensory Exam: Sensory deficit (Neuro) Plantar Reflex Responses: upgoing (positive Babinski): left Psych: Speech and movement: Slurred speech present Affect: Animated affect present Attitude: cooperative Insight: Limited insight present (Psych) Judgement: Limited judgement present (Psych) Objective Data Vital Signs Vital Signs: Vital Signs - 24 hr 07/11/20 20:00 07/11/20 22:00 07/12/20 05:30 Temperature 36.8 C 36.9 C Pulse Rate 98 78 90 Respiratory Rate 20 22 H 20 Blood Pressure 132/74 133/70 Pulse Oximetry 97 97 98 07/12/20 11:05 07/12/20 12:54 07/12/20 13:04 Temperature 36.6 C Pulse Rate 109 H 105 H 108 H Respiratory Rate 16 24 H 21 H Blood Pressure 126/73 102/52 L 109/88 Pulse Oximetry 95 98 98 07/12/20 13:14 07/12/20 14:00 Temperature 36.3 C L Pulse Rate 105 H 100 Respiratory Rate 21 H 18 Blood Pressure 114/68 136/72 Pulse Oximetry 97 97 Intake/Output Intake/Output: Intake & Output 07/09/20 07/10/20 07/11/20 07/12/20 23:59 23:59 23:59 23:59 Intake Total 470 755 408 750 Output Total 350 325 300 975 Balance 120 430 108 -225 Meds/Results Medications: Active Medications Generic Name Dose Route Start Last Admin Trade Name Freq PRN Reason Stop Dose Admin Acetaminophen 650 mg 07/12/20 13:55 Acetaminophen Elixir 325 Mg/10.15 Ml Udc FEED TUBE Q4H PRN Pain or Fever Hydrocodone Bitart/Acetaminophen 1 tab 07/12/20 14:00 Hydrocodone/Acetaminophen (*Crx) 10-325 Mg Tablet FEED TUBE Q8H PRN Pain Amlodipine Besylate 10 mg 07/13/20 09:00 Amlodipine Besylate 5 Mg Tablet FEED TUBE DAILY VERA Atorvastatin Calcium 80 mg 07/12/20 21:00 Atorvastatin 40 Mg Tablet FEED TUBE HS VERA Cilostazol 100 mg 07/12/20 16:30 Cilostazol 100 Mg Tablet FEED TUBE BIDAC VERA Clopidogrel Bisulfate 75 mg 07/06/20 09:00 07/10/20 09:30 Clopidogrel Bisulfate 75 Mg Tablet PO 75 mg DAILY VERA Administration Fluoxetine HCl 20 mg 07/13/20 09:00 Fluoxetine Hcl 20 Mg Capsule FEED TUBE DAILY VERA Lisinopril 20 mg 07/13/20 09:00 Lisinopril 20 Mg Tablet FEED TUBE QAM [facility] Nicotine 1 patch 07/06/20 09:00 07/12/20 10:02 Nicotine (*Pbk
--- NOTE | 2020-07-12 15:02 | PCPTNOTE ---
Patient missed 40 minutes of PT this date due to medical procedure in AM and increased fatigue/lethargy in PM. Patient completed 20 minutes on PT in PM, however required moderate to max verbal and tactile cues to participation. Patient would not keep eyes open during LE exercises or assist with exercises despite increased cues. Will attempt tomorrow as appropriate. Karen Johnson, SAFETY AND SECURITY OFFICER
[2020-07-12] MEDS: cilostazoL 100 MG TABLET FEED TUBE (16:19)
[2020-07-12] MEDS: ATORVASTATIN 40 MG TABLET 80 MG FEED TUBE (21:59)
[2020-07-13 05:51] LABS: Basophils Absolute Auto 0.1 K/mm3 (0.0-0.1); Basophils Percent Auto 0.7 % (0.2-1.2); Eosinophils Absolute Auto 0.2 K/mm3 (0-0.3); Eosinophils Percent Auto 2.3 % (0-4.4); Hematocrit 39.3 % (37.0-47.0); Immature Granulocyte Absolute 0.02 K/mm3 (0.00-0.031); Immature Granulocyte Percent A 0.3 % (0-0.5); Lymphocytes Absolute Auto 1.68 K/mm3 (0.9-3.2); Lymphocytes Percent Auto 22.9 % (18.3-44.2); Mean Corpuscular HGB Conc 33.1 g/dl (32-36); Mean Corpuscular Hemoglobin 30.4 pg (26-34); Mean Platelet Volume 10.1 fl (7.4-10.4); Monocytes Absolute Auto 0.5 K/mm3 (0.1-0.6); Monocytes Percent Auto 7.2 % (2.6-8.5); Neutrophils Absolute Auto 4.9 K/mm3 (1.3-6.7); Neutrophils Percent Auto 66.6 % (45.5-73.1); Platelet Count Result 220 k/mm3 (150-375); Red Blood Count 4.27 M/mm3 (4.2-5.4); Red Cell Distribution Width 12.5 % (11.5-14.5); White Blood Count 7.4 K/mm3 (4.5-10.0)
[2020-07-13 05:54] VITALS: BP 146/73; PULSE 97; RESP 20; TEMP 36.8; O2SAT 99
[2020-07-13 06:09] LABS: Anion Gap 7 mmol/L (8-16); Blood Urea Nitrogen 39 mg/dL (7-17); Calcium 9.5 mg/dL (8.4-10.2); Carbon Dioxide 32 mmol/L (22-30); Chloride 104 mmol/L (98-107); Estimated CRCL calculation 43 ml/min; Estimated Glomerular Filt Rate 52; Glucose 271 mg/dL (65-105); Potassium 4.7 mmol/L (3.4-5.0); Sodium 143 mmol/L (137-145)
[2020-07-13] MEDS: cilostazoL 100 MG TABLET FEED TUBE ×2 (06:18→17:35)
[2020-07-13] MEDS: lisinopriL 20 MG TABLET FEED TUBE (09:04)
[2020-07-13] MEDS: amLODIPine BESYLATE 5 MG TABLET 10 MG FEED TUBE (09:04)
[2020-07-13] MEDS: FLUoxetine HCL 20 MG CAPSULE FEED TUBE (09:04)
[2020-07-13] MEDS: NICOTINE (*PBKC) 7 MG PATCH 1 PATCH TRANSDERM (09:18)
--- NOTE | 2020-07-13 11:36 | WPDGIPROGNO ---
Progress Note: A&P Assessment and Plan (1) Dysphagia as late effect of cerebrovascular accident (CVA): Code(s): I69.391 - Dysphagia following cerebral infarction Status: Acute Assessment and Plan: g-tube working ok, continue feeding by fulfillment coordinator recommendation (2) Cerebrovascular accident: Code(s): I63.9 - Cerebral infarction, unspecified Status: Acute Assessment and Plan: on medical management ok to resume plavix in 2 more days (3) Seizure disorder: Code(s): G40.909 - Epilepsy, unspecified, not intractable, without status epilepticus Status: Chronic Assessment and Plan: on medication, neurology on board (4) Hypertension: Qualifiers: Hypertension type: unspecified Qualified Code(s): I10 - Essential (primary) hypertension Code(s): I10 - Essential (primary) hypertension Status: Chronic (5) Acute left hemiparesis: Code(s): G81.94 - Hemiplegia, unspecified affecting left nondominant side Status: Acute Assessment and Plan: PT/OT Subjective Date/time seen: 07/13/20 11:36 Interval history: she has been tolerating feeding by G-tube, she is comfortable now. Now new issues. Review of Systems Review of Systems: All systems reviewed & are unremarkable except as noted in HPI and below Exam Const: General: no acute distress Other: awake but confused, lethargic HENMT: General nose exam: Normal nares present Other: DHT in place Eyes: Sclera: sclerae normal Neck: Neck: supple Resp: Effort & Inspection: normal respiratory effort Cardio: Rate: regular rate GI: Inspection: non-distended GI Palp: Yes Soft to palpation and No Tenderness to palpation present (GI) Auscultation: normal bowel sounds Other: g-tube is ok, no abdominal tenderness Skin: General skin exam: normal color Neuro: Other: left side hemiparesis, confusion Extrem: General: no edema Psych: Affect: Anxious affect present Objective Data Vital Signs Vital Signs: Vital Signs - 24 hr 07/12/20 12:54 07/12/20 13:04 07/12/20 13:14 Temperature Pulse Rate 105 H 108 H 105 H Respiratory Rate 24 H 21 H 21 H Blood Pressure 102/52 L 109/88 114/68 Pulse Oximetry 98 98 97 07/12/20 14:00 07/12/20 20:32 07/13/20 05:54 Temperature 97.4 F L 97.6 F 98.2 F Pulse Rate 100 99 97 Respiratory Rate 18 20 20 Blood Pressure 136/72 137/85 146/73 H Pulse Oximetry 97 97 99 Intake/Output Intake/Output: Intake & Output 07/10/20 07/11/20 07/12/20 07/13/20 23:59 23:59 23:59 23:59 Intake Total 755 408 750 733 Output Total 586 723 7164 Balance 430 108 -625 733 Meds/Results Medications: Active Medications Generic Name Dose Route Start Last Admin Trade Name Freq PRN Reason Stop Dose Admin Acetaminophen 650 mg 07/12/20 13:55 Acetaminophen Elixir 325 Mg/10.15 Ml Udc FEED TUBE Q4H PRN Pain or Fever Hydrocodone Bitart/Acetaminophen 1 tab 07/12/20 14:00 Hydrocodone/Acetaminophen (*Crx) 10-325 Mg Tablet FEED TUBE Q8H PRN Pain Amlodipine Besylate 10 mg 07/13/20 09:00 07/13/20 09:04 Amlodipine Besylate 5 Mg Tablet FEED TUBE 10 mg DAILY VERA Administration Atorvastatin Calcium 80 mg 07/12/20 21:00 07/12/20 21:59 Atorvastatin 40 Mg Tablet FEED TUBE 80 mg HS VERA Administration Cilostazol 100 mg 07/12/20 16:30 07/13/20 06:18 Cilostazol 100 Mg Tablet FEED TUBE 100 mg BIDAC VERA Administration Clopidogrel Bisulfate 75 mg 07/06/20 09:00 07/10/20 09:30 Clopidogrel Bisulfate 75 Mg Tablet PO 75 mg DAILY VERA Administration Fluoxetine HCl 20 mg 07/13/20 09:00 07/13/20 09:04 Fluoxetine Hcl 20 Mg Capsule FEED TUBE 20 mg DAILY VERA Administration Lisinopril 20 mg 07/13/20 09:00 07/13/20 09:04 Lisinopril 20 Mg Tablet FEED TUBE 20 mg QAM VERA Administration Nicotine 1 patch 07/06/20 09:00 07/13/20 09:18 Nicotine (*Pbkc) 7 Mg Patch TRANSDERM 1 patch DAILY S
[2020-07-13 12:09] LABS: Glucose Point of Care 257 (65-105)
[2020-07-13] MEDS: INSULIN ASPART (*BKC) 100 UNITS/ML SUB-Q ×2 (12:53→17:40)
[2020-07-13] MEDS: PHARMACIST COMMUNICATION ORDER 1 EACH XX (12:55)
[2020-07-13 14:00] VITALS: BP 120/72; PULSE 114; RESP 18; TEMP 36.7; O2SAT 98
[2020-07-13 17:41] LABS: Glucose Point of Care 209 (65-105)
[2020-07-13 21:10] VITALS: BP 111/60; PULSE 107; RESP 16; TEMP 37.4; O2SAT 98
[2020-07-13] MEDS: ATORVASTATIN 40 MG TABLET 80 MG FEED TUBE (21:20)
[2020-07-13] MEDS: ACETAMINOPHEN ELIXIR 325 MG/10.15 ML UDC 650 MG FEED TUBE (21:40)
[2020-07-14 00:28] LABS: Glucose Point of Care 201 (65-105)
[2020-07-14 05:01] VITALS: BP 122/70; PULSE 100; RESP 16; TEMP 36.9; O2SAT 97
[2020-07-14] MEDS: cilostazoL 100 MG TABLET FEED TUBE ×2 (05:46→18:20)
[2020-07-14 06:12] LABS: Glucose Point of Care 201 (65-105)
[2020-07-14] MEDS: NICOTINE (*PBKC) 7 MG PATCH 1 PATCH TRANSDERM (09:05)
[2020-07-14] MEDS: INSULIN ASPART (*BKC) 100 UNITS/ML SUB-Q (09:05)
[2020-07-14] MEDS: amLODIPine BESYLATE 5 MG TABLET 10 MG FEED TUBE (09:06)
[2020-07-14] MEDS: lisinopriL 20 MG TABLET FEED TUBE (09:06)
[2020-07-14] MEDS: FLUoxetine HCL 20 MG CAPSULE FEED TUBE (09:06)
[2020-07-14 12:56] LABS: Glucose Point of Care 183 (65-105)
--- NOTE | 2020-07-14 13:28 | PCDIET ---
Nutrition Follow-Up Complete: Nutrition Diagnosis: Involuntary weight loss related to CVA as evidenced by significant 9.9% weight loss x 2 weeks. Nutrition Goal: Patient to meet estimated nutritional needs. Goal met. Patient tolerating Glucerna 1.2 via PEG at 75mL/hr x 8 hours daily with 240mL bolus Glucerna 1.2 TID. Receiving water flush of 50mL after each bolus and every 4 hours overnight. Last recorded weight is 55.4 kg. Recommend obtaining new weight. Bowel Motility: Last documented BM on 07/11/20. Labs Reviewed: Glu (201) Meds Noted: Norvasc, Lipitor, Novolog, Lisinopril, Phenytoin (tube feedings scheduled around administration) Additional Notes: No documented skin breakdown. Will continue to monitor with same goal. Nutrition Monitoring and Evaluation: Follow up every Friday/Friday.
[2020-07-14 14:00] VITALS: BP 131/71; PULSE 115; RESP 20; TEMP 36.5; O2SAT 100
--- NOTE | 2020-07-14 16:10 | WPDNEURORHBP ---
Subjective Date/time seen: 07/14/20 16:10 49 years old with hemispheric stroke and status post PEG in addition to the ongoing history of seizure disorder has been stable feeling much better and tube feeding has been started Review of Systems Review of Systems: All systems reviewed & are unremarkable except as noted in HPI and below Exam Const: General: cooperative, comfortable, no acute distress, alert and awake Nutritional Appearance: average body habitus Orientation/consciousness: oriented to person HENMT: Head: normocephalic Ears: hearing grossly normal bilaterally General nose exam: Normal external nose present Face and sinus: normal facial exam Mouth: Yes Normal oral and palatal mucosa present Eyes: General: appearance normal, both eyes and all related structures Periorbital: periorbital findings normal Eyelids: eyelids normal Conjunctivae: conjunctivae normal Sclera: sclerae normal Cornea: corneas normal Pupils: Equal, round and reactive pupils present EOM: EOMs intact bilaterally Direct Ophthalmoscopy: normal light reflex Neck: Neck: full ROM Resp: Effort & Inspection: normal respiratory effort Cardio: Jugular venous distension: no JVD Rate: regular rate Rhythm: regular rhythm GI: Auscultation: normal bowel sounds Skin: General skin exam: no rashes or lesions noted Neuro: General: oriented to person and oriented to place Cranial nerves: Yes Equal, round and reactive pupils present, Yes Nystagmus not present and Yes Midline tongue present Cognition (Neuro): abnormal cognition Speech: Abnormal speech present Gait exam (Neuro): Unable to assess gait Motor exam (neuro): Abnormal motor strength present Plantar Reflex Responses: downgoing: right and upgoing (positive Babinski): left Psych: Mental Status: other Speech and movement: Slurred speech present Affect: Sad affect present Attitude: cooperative Thought process: Impoverished thought process present Thought content: Yes Normal thought content present Insight: Poor insight present (Psych) Judgement: Poor judgement present (Psych) Objective Data Vital Signs Vital Signs: Vital Signs - 24 hr 07/13/20 21:10 07/14/20 05:01 07/14/20 14:00 Temperature 37.4 C 36.9 C 36.5 C Pulse Rate 107 H 100 115 H Respiratory Rate 16 16 20 Blood Pressure 111/60 122/70 131/71 Pulse Oximetry 98 97 100 Intake/Output Intake/Output: Intake & Output 07/11/20 07/12/20 07/13/20 07/14/20 23:59 23:59 23:59 23:59 Intake Total 882 206 1229 762 Output Total 300 0245 250 225 Balance 108 -198 1363 537 Meds/Results Medications: Active Medications Generic Name Dose Route Start Last Admin Trade Name Freq PRN Reason Stop Dose Admin Acetaminophen 650 mg 07/12/20 13:55 07/13/20 21:40 Acetaminophen Elixir 325 Mg/10.15 Ml Udc FEED TUBE 650 mg Q4H PRN Administration Pain or Fever Hydrocodone Bitart/Acetaminophen 1 tab 07/12/20 14:00 Hydrocodone/Acetaminophen (*Crx) 10-325 Mg Tablet FEED TUBE Q8H PRN Pain Amlodipine Besylate 10 mg 07/13/20 09:00 07/14/20 09:06 Amlodipine Besylate 5 Mg Tablet FEED TUBE 10 mg DAILY VERA Administration Atorvastatin Calcium 80 mg 07/12/20 21:00 07/13/20 21:20 Atorvastatin 40 Mg Tablet FEED TUBE 80 mg HS VERA Administration Cilostazol 100 mg 07/12/20 16:30 07/14/20 05:46 Cilostazol 100 Mg Tablet FEED TUBE 100 mg BIDAC VERA Administration Clopidogrel Bisulfate 75 mg 07/06/20 09:00 07/10/20 09:30 Clopidogrel Bisulfate 75 Mg Tablet PO 75 mg DAILY VERA Administration Dextrose 12.5 gm 07/13/20 12:36 Dextrose 50% 25 Gm/50 Ml Syringe IV PUSH PRN PRN Hypoglycemia Protocol Fluoxetine HCl 20 mg 07/13/20 09:00 07/14/20 09:06 Fluoxetine Hcl 20 Mg Capsule FEED TUBE 20 mg DAILY VERA Administration Glucagon 1 mg 07/13/20 12:36 Glucagon For Inj 1 Mg Vial IM PRN PRN Hypoglycemia Protocol Glucose 15 gm 07/13/20 12:36 Gl
[2020-07-14 18:36] LABS: Glucose Point of Care 162 (65-105)
[2020-07-14 20:50] VITALS: PULSE 115; RESP 20; O2SAT 100
[2020-07-14] MEDS: ATORVASTATIN 40 MG TABLET 80 MG FEED TUBE (20:51)
[2020-07-14 22:00] VITALS: BP 102/57; PULSE 98; RESP 16; TEMP 36.6; O2SAT 94
[2020-07-15 00:10] LABS: Glucose Point of Care 156 (65-105)
[2020-07-15 06:00] VITALS: BP 113/55; PULSE 95; RESP 18; TEMP 36.7; O2SAT 95
[2020-07-15] MEDS: cilostazoL 100 MG TABLET FEED TUBE ×2 (06:47→17:17)
[2020-07-15 06:59] LABS: Glucose Point of Care 175 (65-105)
[2020-07-15] MEDS: amLODIPine BESYLATE 5 MG TABLET 10 MG FEED TUBE (08:38)
[2020-07-15] MEDS: CLOPIDOGREL BISULFATE 75 MG TABLET PO (08:38)
[2020-07-15] MEDS: lisinopriL 20 MG TABLET FEED TUBE (08:39)
[2020-07-15] MEDS: FLUoxetine HCL 20 MG CAPSULE FEED TUBE (08:39)
[2020-07-15] MEDS: NICOTINE (*PBKC) 7 MG PATCH 1 PATCH TRANSDERM (08:39)
[2020-07-15 08:56] LABS: Glucose Point of Care 174 (65-105)
--- NOTE | 2020-07-15 11:46 | WPDNEURORHBP ---
Subjective Date/time seen: 07/15/20 11:46 49 years old with hemispheric stroke and status post PEG addition to ongoing history of seizure disorder, has remained afebrile with temp of 36.7? pulse 95 respiration 18 pulse ox 95% on room air and a blood pressure 113/55, blood sugar 174 and no other lab Review of Systems Review of Systems: All systems reviewed & are unremarkable except as noted in HPI and below Exam Const: General: cooperative, comfortable, no acute distress, alert and awake Nutritional Appearance: average body habitus Orientation/consciousness: oriented to person HENMT: Ears: hearing grossly normal bilaterally General nose exam: Normal external nose present and No nasal discharge present Face and sinus: normal facial exam Mouth: Yes Normal oral and palatal mucosa present Eyes: General: appearance normal, both eyes and all related structures Pupils: Equal, round and reactive pupils present EOM: EOMs intact bilaterally Neck: Neck: full ROM Resp: Effort & Inspection: normal respiratory effort and able to speak in complete sentences Auscultation: clear to auscultation bilaterally Cardio: Jugular venous distension: no JVD Rate: regular rate Rhythm: regular rhythm GI: Inspection: normal to inspection GI Palp: Yes Soft to palpation Auscultation: normal bowel sounds ( peg intact) Skin: General skin exam: no rashes or lesions noted Neuro: General: oriented to person, oriented to place and moves all extremities Cranial nerves: Yes Equal, round and reactive pupils present, Yes Bilaterally intact EOM present, Yes Nystagmus not present, Yes Normal facial strength present, Yes Midline tongue present and Yes Normal hearing present Speech: Abnormal speech present ( slow and hesitant but follows very well) Gait exam (Neuro): Unable to assess gait Motor exam (neuro): Abnormal motor strength present ( left hemiparesis) Plantar Reflex Responses: downgoing: right and upgoing (positive Babinski): left Extrem: General: normal to inspection Psych: Appearance: grossly normal Speech and movement: Slowed speech present (Psych) Affect: Animated affect present Attitude: cooperative Insight: Fair insight present (Psych) Judgement: Fair judgement present (Psych) Objective Data Vital Signs Vital Signs: Vital Signs - 24 hr 07/14/20 14:00 07/14/20 20:50 07/14/20 22:00 Temperature 36.5 C 36.6 C Pulse Rate 115 H 115 H 98 Respiratory Rate 20 20 16 Blood Pressure 131/71 102/57 L Pulse Oximetry 100 100 94 07/15/20 06:00 Temperature 36.7 C Pulse Rate 95 Respiratory Rate 18 Blood Pressure 113/55 L Pulse Oximetry 95 Intake/Output Intake/Output: Intake & Output 07/12/20 07/13/20 07/14/20 07/15/20 23:59 23:59 23:59 23:59 Intake Total 750 1613 1102 780 Output Total 1375 250 775 800 Balance -625 1363 327 -20 Meds/Results Medications: Active Medications Generic Name Dose Route Start Last Admin Trade Name Freq PRN Reason Stop Dose Admin Acetaminophen 650 mg 07/12/20 13:55 07/13/20 21:40 Acetaminophen Elixir 325 Mg/10.15 Ml Udc FEED TUBE 650 mg Q4H PRN Administration Pain or Fever Hydrocodone Bitart/Acetaminophen 1 tab 07/12/20 14:00 Hydrocodone/Acetaminophen (*Crx) 10-325 Mg Tablet FEED TUBE Q8H PRN Pain Amlodipine Besylate 10 mg 07/13/20 09:00 07/15/20 08:38 Amlodipine Besylate 5 Mg Tablet FEED TUBE 10 mg DAILY VERA Administration Atorvastatin Calcium 80 mg 07/12/20 21:00 07/14/20 20:51 Atorvastatin 40 Mg Tablet FEED TUBE 80 mg HS VERA Administration Cilostazol 100 mg 07/12/20 16:30 07/15/20 06:47 Cilostazol 100 Mg Tablet FEED TUBE 100 mg BIDAC VERA Administration Clopidogrel Bisulfate 75 mg 07/06/20 09:00 07/15/20 08:38 Clopidogrel Bisulfate 75 Mg Tablet PO 75 mg DAILY VERA Administration Dextrose 12.5 gm 07/13/20 12:36 Dextrose 50% 25 Gm/50 Ml Syringe IV PUSH PRN PRN Hypoglycemia Protocol Fluoxetine HCl
[2020-07-15 12:55] LABS: Glucose Point of Care 161 (65-105)
[2020-07-15 14:00] VITALS: BP 97/44; PULSE 125; RESP 18; TEMP 36.8; O2SAT 94
[2020-07-15 17:25] LABS: Glucose Point of Care 218 (65-105)
[2020-07-15] MEDS: INSULIN ASPART (*BKC) 100 UNITS/ML SUB-Q (17:25)
[2020-07-15] MEDS: ATORVASTATIN 40 MG TABLET 80 MG FEED TUBE (20:37)
[2020-07-15 21:00] VITALS: PULSE 91; RESP 18; O2SAT 97
[2020-07-15 21:32] VITALS: BP 120/66; PULSE 91; RESP 18; TEMP 35.9; O2SAT 97
[2020-07-16 04:24] VITALS: BP 115/68; PULSE 94; RESP 18; TEMP 36.4; O2SAT 96
[2020-07-16 06:15] LABS: Glucose Point of Care 170 (65-105)
[2020-07-16] MEDS: cilostazoL 100 MG TABLET FEED TUBE ×2 (06:20→17:25)
[2020-07-16 09:12] VITALS: BP 104/62; PULSE 94; RESP 16; O2SAT 96
[2020-07-16] MEDS: amLODIPine BESYLATE 5 MG TABLET 10 MG FEED TUBE (09:14)
[2020-07-16] MEDS: CLOPIDOGREL BISULFATE 75 MG TABLET PO (09:14)
[2020-07-16] MEDS: FLUoxetine HCL 20 MG CAPSULE FEED TUBE (09:14)
[2020-07-16] MEDS: NICOTINE (*PBKC) 7 MG PATCH 1 PATCH TRANSDERM (09:14)
[2020-07-16] MEDS: lisinopriL 20 MG TABLET FEED TUBE (09:15)
[2020-07-16 09:56] LABS: Glucose Point of Care 151 (65-105)
[2020-07-16 10:40] VITALS: BMI 10.0
[2020-07-16] MEDS: ONDANSETRON HCL ODT 4 MG TABLET PO (10:59)
[2020-07-16] MEDS: INSULIN ASPART (*BKC) 100 UNITS/ML SUB-Q (11:52)
[2020-07-16 12:01] LABS: Glucose Point of Care 208 (65-105)
[2020-07-16 14:00] VITALS: BP 111/67; PULSE 96; RESP 16; TEMP 36.2; O2SAT 100
[2020-07-16 17:41] LABS: Glucose Point of Care 110 (65-105)
[2020-07-16] MEDS: ATORVASTATIN 40 MG TABLET 80 MG FEED TUBE (20:40)
[2020-07-16 21:48] LABS: Glucose Point of Care 161 (65-105)
[2020-07-16 22:00] VITALS: BP 101/64; PULSE 76; RESP 18; TEMP 36.3; O2SAT 93
[2020-07-17] MEDS: cilostazoL 100 MG TABLET FEED TUBE ×2 (05:38→17:02)
[2020-07-17 05:50] VITALS: BP 109/54; PULSE 94; RESP 18; TEMP 36.2; O2SAT 96
[2020-07-17 08:00] VITALS: PULSE 94; RESP 18; O2SAT 96
[2020-07-17] MEDS: CLOPIDOGREL BISULFATE 75 MG TABLET PO (08:42)
[2020-07-17] MEDS: amLODIPine BESYLATE 5 MG TABLET 10 MG FEED TUBE (08:42)
[2020-07-17] MEDS: FLUoxetine HCL 20 MG CAPSULE FEED TUBE (08:42)
[2020-07-17] MEDS: lisinopriL 20 MG TABLET FEED TUBE (08:43)
[2020-07-17] MEDS: NICOTINE (*PBKC) 7 MG PATCH 1 PATCH TRANSDERM (08:43)
[2020-07-17 08:50] LABS: Glucose Point of Care 140 (65-105)
[2020-07-17] MEDS: DOCUSATE SODIUM LIQ 100 MG/10 ML UDC FEED TUBE ×2 (13:30→20:07)
[2020-07-17 14:00] VITALS: BP 111/64; PULSE 100; RESP 20; TEMP 36.1; O2SAT 96
[2020-07-17 18:05] LABS: Glucose Point of Care 134 (65-105)
[2020-07-17 20:00] VITALS: PULSE 95; RESP 20; O2SAT 100
[2020-07-17] MEDS: ATORVASTATIN 40 MG TABLET 80 MG FEED TUBE (20:07)
[2020-07-17] MEDS: ONDANSETRON HCL ODT 4 MG TABLET PO (20:15)
[2020-07-17 22:00] VITALS: BP 117/67; PULSE 95; RESP 20; TEMP 36.4; O2SAT 100
[2020-07-18 06:00] VITALS: BP 103/66; PULSE 91; RESP 20; TEMP 36.1; O2SAT 94
[2020-07-18] MEDS: cilostazoL 100 MG TABLET FEED TUBE ×2 (06:35→17:12)
[2020-07-18 06:37] LABS: Glucose Point of Care 133 (65-105)
[2020-07-18 08:00] VITALS: PULSE 91; RESP 20; O2SAT 94
[2020-07-18] MEDS: amLODIPine BESYLATE 5 MG TABLET 10 MG FEED TUBE (08:41)
[2020-07-18] MEDS: lisinopriL 20 MG TABLET FEED TUBE (08:41)
[2020-07-18] MEDS: CLOPIDOGREL BISULFATE 75 MG TABLET PO (08:41)
[2020-07-18] MEDS: FLUoxetine HCL 20 MG CAPSULE FEED TUBE (08:41)
[2020-07-18] MEDS: DOCUSATE SODIUM LIQ 100 MG/10 ML UDC FEED TUBE (08:41)
[2020-07-18] MEDS: NICOTINE (*PBKC) 7 MG PATCH 1 PATCH TRANSDERM (08:46)
[2020-07-18 09:41] LABS: Glucose Point of Care 163 (65-105)
--- NOTE | 2020-07-18 12:07 | WPDNEURORHBP ---
Subjective Date/time seen: 07/18/20 12:07 49 years old with hemispheric stroke and status post PEG in addition to ongoing history of seizure disorder has been involved in the physical therapy and occupational therapy not very spontaneously communicative but definitely coming along better her situation was discussed and the family meeting as well, she has remained afebrile with temp of 36.1? pulse 91 respiration 20 pulse ox 94% on the room air blood pressure 103/66 there is no new lab and G tube has been placed also tolerating the feeding fairly well Review of Systems Review of Systems: All systems reviewed & are unremarkable except as noted in HPI and below Exam Const: General: cooperative, comfortable and no acute distress Nutritional Appearance: average body habitus Orientation/consciousness: oriented to person and oriented to place HENMT: Ears: hearing grossly normal bilaterally General nose exam: Normal external nose present and No nasal discharge present Face and sinus: normal facial exam Mouth: Yes Normal oral and palatal mucosa present and Yes moist mucous membranes Eyes: General: appearance normal, both eyes and all related structures EOM: EOMs intact bilaterally Neck: Neck: full ROM Resp: Effort & Inspection: normal respiratory effort Auscultation: clear to auscultation bilaterally Cardio: Jugular venous distension: no JVD Rate: regular rate Rhythm: regular rhythm GI: Auscultation: normal bowel sounds Other: G-tube insertion clean Skin: General skin exam: no rashes or lesions noted Neuro: General: oriented to person, oriented to place and moves all extremities Cranial nerves: Yes Equal, round and reactive pupils present, Yes Bilaterally intact EOM present, Yes Nystagmus not present, Yes Normal facial strength present, Yes Midline tongue present and Yes Normal hearing present Cognition (Neuro): normal cognition Speech: Other speech findings present (Neuro) ( slow hesitant but does follow the instruction appropriately) Gait exam (Neuro): Other gait observations present ( hemiparetic gait) Motor exam (neuro): Abnormal motor strength present ( left hemiparesis with hyperreflexia and upgoing plantar response) Sensory Exam: Sensory deficit (Neuro) ( on the left side) Deep tendon reflexes (DTR's): Right triceps reflex intensity grade: 1+, Left triceps reflex intensity grade: 2+, Rt Biceps (C5, C6): 1+, Left biceps reflex intensity grade: 2+, Right brachioradialis reflex intensity grade: 1+, Left brachioradialis reflex intensity grade: 2+, Right patellar reflex intensity grade: 1+, Left patellar reflex intensity grade: 2+, Right ankle reflex intensity grade: 1+ and Left ankle reflex intensity grade: 2+ Plantar Reflex Responses: downgoing: right and upgoing (positive Babinski): left Coordination: [id number] test normal ( on the right) Extrem: General: capillary refill normal Psych: Mental Status: other ( quite not very expressive follows all the instruction appropriately) Affect: Animated affect present Attitude: cooperative Thought process: Impoverished thought process present Thought content: Yes Normal thought content present Insight: Fair insight present (Psych) Judgement: Fair judgement present (Psych) Objective Data Vital Signs Vital Signs: Vital Signs - 24 hr 07/17/20 14:00 07/17/20 20:00 07/17/20 22:00 Temperature 36.1 C L 36.4 C L Pulse Rate 100 95 95 Respiratory Rate 20 20 20 Blood Pressure 111/64 117/67 Pulse Oximetry 96 100 100 07/18/20 06:00 Temperature 36.1 C L Pulse Rate 91 Respiratory Rate 20 Blood Pressure 103/66 Pulse Oximetry 94 Intake/Output Intake/Output: Intake & Output 07/15/20 07/16/20 07/17/20 07/18/20 23:59 23:59 23:59 23:59 Intake Total 780 740 870 Output Total 500 0921 028 978 Balance -20 -290 573 -363 Meds/Results Medications: Active Medications Generic Name Dose Route Start Last Admin Trade Name Freq PRN Reason Stop Dose Admin Acetaminophen 650
--- NOTE | 2020-07-18 12:41 | PCDIET ---
Nutrition Follow-Up Complete: Nutrition Diagnosis: Involuntary weight loss related to CVA as evidenced by significant 9.9% weight loss x 2 weeks. Nutrition Goal: Patient to meet estimated nutritional needs. Goal met. Patient tolerating Glucerna 1.2 at 75mL/hr x 8 hours overnight with 240mL bolus TID. Patient receiving 50mL water flush every 4 hours overnight and after each bolus. RN reports patient tolerating well. Last recorded weight is 55.4 kg. Recommend obtaining new weight. Bowel Motility: No recent BM documented. Colace initiated 07/17/20. Labs Reviewed: Glu (133) Meds Noted: Norvasc, Lipitor, Colace, Prinivil, Phenytoin Additional Notes: No skin changes documented. Will continue to monitor with same goal. Nutrition Monitoring and Evaluation: Follow up every Friday/Friday.
[2020-07-18 14:00] VITALS: BP 99/74; PULSE 98; RESP 20; TEMP 36.2; O2SAT 97
[2020-07-18 17:09] LABS: Glucose Point of Care 154 (65-105)
[2020-07-18] MEDS: ATORVASTATIN 40 MG TABLET 80 MG FEED TUBE (21:09)
[2020-07-18 22:00] VITALS: BP 103/68; PULSE 99; RESP 20; TEMP 36.2; O2SAT 97
[2020-07-18 23:15] LABS: Glucose Point of Care 156 (65-105)
[2020-07-19 06:00] VITALS: BP 126/67; PULSE 94; RESP 20; TEMP 36.7; O2SAT 96
[2020-07-19] MEDS: cilostazoL 100 MG TABLET FEED TUBE ×2 (06:02→18:44)
[2020-07-19 06:15] LABS: Glucose Point of Care 162 (65-105)
[2020-07-19] MEDS: NICOTINE (*PBKC) 7 MG PATCH 1 PATCH TRANSDERM (10:20)
[2020-07-19] MEDS: FLUoxetine HCL 20 MG CAPSULE FEED TUBE (10:21)
[2020-07-19] MEDS: CLOPIDOGREL BISULFATE 75 MG TABLET PO (10:21)
[2020-07-19] MEDS: lisinopriL 20 MG TABLET FEED TUBE (10:21)
[2020-07-19] MEDS: amLODIPine BESYLATE 5 MG TABLET 10 MG FEED TUBE (10:21)
--- NOTE | 2020-07-19 10:46 | PCPTNOTE ---
Gogo Johnson was evaluated for a hospital bed on 07/19/2020 by this physical therapist. The hospital bed will resolve patient's mobility limitations and will be used for ADL's within the home. The patient can safely use the hospital bed. ?The hospital bed will resolve the patient?s mobility deficits, including decreased core strength, L sided hemiplegia, and impairment with swallowing requiring 30 degree head of bed elevation for tube feedings.
[2020-07-19 12:16] LABS: Glucose Point of Care 198 (65-105)
[2020-07-19 14:00] VITALS: BP 101/73; PULSE 97; RESP 20; TEMP 36.3; O2SAT 99
--- NOTE | 2020-07-19 14:59 | WPDNEURORHBP ---
Subjective Date/time seen: 07/19/20 14:59 49 years old with right hemispheric stroke, status post PEG with tube feeding has been involved in therapy, Petterchak signs remained stable temp of 36.7? pulse is 94 respirations 20 pulse ox 96% on the room air and blood pressure 126/67 blood sugar 198 Review of Systems Review of Systems: All systems reviewed & are unremarkable except as noted in HPI and below Exam Const: General: cooperative, comfortable and no acute distress Nutritional Appearance: average body habitus Orientation/consciousness: oriented to person and oriented to place HENMT: Ears: hearing grossly normal bilaterally General nose exam: Normal external nose present and No nasal discharge present Face and sinus: normal facial exam Mouth: Yes moist mucous membranes Eyes: General: appearance normal, both eyes and all related structures Resp: Effort & Inspection: normal respiratory effort Auscultation: clear to auscultation bilaterally Cardio: Jugular venous distension: no JVD Rate: regular rate Rhythm: regular rhythm GI: Auscultation: normal bowel sounds Skin: General skin exam: no rashes or lesions noted Neuro: General: oriented to person, oriented to place and moves all extremities Cranial nerves: Yes Equal, round and reactive pupils present, Yes Bilaterally intact EOM present, Yes Nystagmus not present, Yes Normal facial strength present, Yes Midline tongue present and Yes Ability to bilaterally rotate head present Cognition (Neuro): normal cognition Speech: Abnormal speech present ( slow though follows all the commands) Motor exam (neuro): No tremor noted, Motor abnormalities not present and Abnormal motor strength present ( left hemiparesis) Sensory Exam: Sensory deficit (Neuro) ( left-sided deficit) Deep tendon reflexes (DTR's): Right triceps reflex intensity grade: 1+, Left triceps reflex intensity grade: 2+, Rt Biceps (C5, C6): 1+, Left biceps reflex intensity grade: 2+, Right brachioradialis reflex intensity grade: 1+, Left brachioradialis reflex intensity grade: 2+, Right patellar reflex intensity grade: 1+, Left patellar reflex intensity grade: 2+, Right ankle reflex intensity grade: 1+ and Left ankle reflex intensity grade: 2+ Plantar Reflex Responses: downgoing: right and upgoing (positive Babinski): left Coordination: [id number] test normal ( on the right side) Extrem: General: full ROM and capillary refill normal Psych: Speech and movement: Slowed speech present (Psych) and Slowed movement present (Neuro) Affect: Animated affect present Attitude: cooperative Thought process: Other thought process findings present ( poor) Insight: Poor insight present (Psych) Judgement: Poor judgement present (Psych) Objective Data Vital Signs Vital Signs: Vital Signs - 24 hr 07/18/20 22:00 07/19/20 06:00 Temperature 36.2 C L 36.7 C Pulse Rate 99 94 Respiratory Rate 20 20 Blood Pressure 103/68 126/67 Pulse Oximetry 97 96 Intake/Output Intake/Output: Intake & Output 07/16/20 07/17/20 07/18/20 07/19/20 23:59 23:59 23:59 23:59 Intake Total 740 870 650 Output Total 1250 700 925 475 Balance -510 170 -925 175 Meds/Results Medications: Active Medications Generic Name Dose Route Start Last Admin Trade Name Freq PRN Reason Stop Dose Admin Acetaminophen 650 mg 07/12/20 13:55 07/13/20 21:40 Acetaminophen Elixir 325 Mg/10.15 Ml Udc FEED TUBE 650 mg Q4H PRN Administration Pain or Fever Hydrocodone Bitart/Acetaminophen 1 tab 07/12/20 14:00 Hydrocodone/Acetaminophen (*Crx) 10-325 Mg Tablet FEED TUBE Q8H PRN Pain Amlodipine Besylate 10 mg 07/13/20 09:00 07/19/20 10:21 Amlodipine Besylate 5 Mg Tablet FEED TUBE 10 mg DAILY VERA Administration Atorvastatin Calcium 80 mg 07/12/20 21:00 07/18/20 21:09 Atorvastatin 40 Mg Tablet FEED TUBE 80 mg HS VERA Administration Cilostazol 100 mg 07/12/20 16:30 07/19/20 06:02 Cilostazol 100 Mg Tablet FEED T
[2020-07-19 16:56] LABS: Glucose Point of Care 133 (65-105)
[2020-07-19 20:00] VITALS: PULSE 64; RESP 16; O2SAT 98
[2020-07-19] MEDS: ATORVASTATIN 40 MG TABLET 80 MG FEED TUBE (20:36)
[2020-07-19 22:00] VITALS: BP 109/54; PULSE 64; RESP 16; TEMP 36.4; O2SAT 98
[2020-07-19 22:58] LABS: Glucose Point of Care 171 (65-105)
[2020-07-20 05:34] LABS: Basophils Percent Auto 0.4 % (0.2-1.2); Eosinophils Absolute Auto 0.2 K/mm3 (0-0.3); Hematocrit 33.5 % (37.0-47.0); Hemoglobin 11.8 g/dL (12.0-15.0); Immature Granulocyte Absolute 0.03 K/mm3 (0.00-0.031); Immature Granulocyte Percent A 0.4 % (0-0.5); Lymphocytes Absolute Auto 1.61 K/mm3 (0.9-3.2); Lymphocytes Percent Auto 23.3 % (18.3-44.2); Mean Corpuscular HGB Conc 35.2 g/dl (32-36); Mean Corpuscular Hemoglobin 29.9 pg (26-34); Mean Platelet Volume 11.2 fl (7.4-10.4); Monocytes Absolute Auto 0.6 K/mm3 (0.1-0.6); Monocytes Percent Auto 8.5 % (2.6-8.5); Neutrophils Absolute Auto 4.4 K/mm3 (1.3-6.7); Neutrophils Percent Auto 64.4 % (45.5-73.1); Platelet Count Result 187 k/mm3 (150-375); Red Blood Count 3.94 M/mm3 (4.2-5.4); Red Cell Distribution Width 11.8 % (11.5-14.5); White Blood Count 6.9 K/mm3 (4.5-10.0)
[2020-07-20] MEDS: cilostazoL 100 MG TABLET FEED TUBE ×2 (05:42→17:13)
[2020-07-20 05:47] LABS: Anion Gap 8 mmol/L (8-16); Blood Urea Nitrogen 33 mg/dL (7-17); Calcium 9.1 mg/dL (8.4-10.2); Carbon Dioxide 30 mmol/L (22-30); Chloride 96 mmol/L (98-107); Estimated CRCL calculation 59 ml/min; Estimated Glomerular Filt Rate > 60; Glucose 165 mg/dL (65-105); Potassium 4.4 mmol/L (3.4-5.0); Sodium 134 mmol/L (137-145)
[2020-07-20 06:54] LABS: Glucose Point of Care 198 (65-105)
--- NOTE | 2020-07-20 08:56 | WPDNEURORHBP ---
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 She currently is unable to functionally ambulate and demonstrate a high fall risk 2nd to severity of deficits including right hemiplegia, impaired balance /impaired coordination, impaired cognition and impaired communication and also impaired functional activity tolerance. She requires up to mod assist for self propelling a manual wheelchair and she is dependent for manual wheelchair pressure relieves, home will accommodate a wheelchair. I am recommending a custom manual tilt in space wheelchair with supportive back, positioning question, left upper extremity tray and bilateral swing a ways leg rest. I have ordered a therapy mobility evaluation to be completed forMs Elders. Review of Systems Review of Systems: All systems reviewed & are unremarkable except as noted in HPI and below Exam Const: General: cooperative and comfortable Nutritional Appearance: average body habitus Limitations: physical limitations HENMT: General nose exam: Normal external nose present and No nasal discharge present Face and sinus: normal facial exam Mouth: Yes Normal oral and palatal mucosa present Eyes: General: appearance normal, both eyes and all related structures Neck: Neck: full ROM and supple Resp: Effort & Inspection: normal respiratory effort Auscultation: clear to auscultation bilaterally Cardio: Jugular venous distension: no JVD Palpation: normal PMI Rate: regular rate Rhythm: regular rhythm GI: Inspection: other ( G-tube in) Auscultation: normal bowel sounds Skin: General skin exam: no rashes or lesions noted Neuro: General: oriented to person and Unable to assess gait Cranial nerves: Yes Equal, round and reactive pupils present, Yes Bilaterally intact EOM present, Yes Nystagmus not present, Yes Normal facial strength present, Yes Midline tongue present and Yes Normal hearing present Cognition (Neuro): abnormal cognition Speech: Abnormal speech present Gait exam (Neuro): Unable to assess gait Motor exam (neuro): Abnormal motor strength present Sensory Exam: Sensory deficit (Neuro) Deep tendon reflexes (DTR's): Right triceps reflex intensity grade: 1+, Left triceps reflex intensity grade: 2+, Rt Biceps (C5, C6): 1+, Left biceps reflex intensity grade: 2+, Right brachioradialis reflex intensity grade: 1+, Left brachioradialis reflex intensity grade: 2+, Right patellar reflex intensity grade: 1+, Left patellar reflex intensity grade: 2+, Right ankle reflex intensity grade: 1+ and Left ankle reflex intensity grade: 2+ Plantar Reflex Responses: downgoing: right and upgoing (positive Babinski): left Extrem: General: full ROM Psych: Mental Status: other Speech and movement: Slowed speech present (Psych) Affect: Animated affect present Attitude: cooperative Insight: Poor insight present (Psych) Judgement: Poor judgement present (Psych) Objective Data Vital Signs Vital Signs: Vital Signs - 24 hr 07/19/20 14:00 07/19/20 20:00 07/19/20 22:00 Temperature 36.3 C L 36.4 C Pulse Rate 97 64 64 Respiratory Rate 20 16 16 Blood Pressure 101/73 109/54 L Pulse Oximetry 99 98 98 Intake/Output Intake/Output: Intake & Output 07/17/20 07/18/20 07/19/20 07/20/20 23:59 23:59 23:59 23:59 Intake Total 870 1670 900 Output Total 973 391 5611 Balance 170 -925 645 900 Meds/Results Medications: Active Medications Generic Name Dose Route Start Last Admin Trade Name Freq PRN Reason Stop Dose Admin Acetaminophen 650 mg 07/12/20 13:55 07/13/20 21:40 Acetaminophen Elixir 325 Mg/10.15 Ml Udc FEED TUBE 650 mg Q4H PRN Administration Pain or Fever Hydrocodone Bitart/Acetaminophen 1 tab 07/12/20 14:00 Hydrocodone/Acetaminophen (*Crx) 10-325 Mg Tablet FEED TUBE Q8H PRN Pain Amlodipine Besylate 10 mg 07/13/20 09:00 07/19/20 10:21 Amlodipine B
[2020-07-20] MEDS: NICOTINE (*PBKC) 7 MG PATCH 1 PATCH TRANSDERM (09:30)
[2020-07-20] MEDS: lisinopriL 20 MG TABLET FEED TUBE (09:36)
[2020-07-20] MEDS: amLODIPine BESYLATE 5 MG TABLET 10 MG FEED TUBE (09:36)
[2020-07-20] MEDS: DOCUSATE SODIUM LIQ 100 MG/10 ML UDC FEED TUBE (09:36)
[2020-07-20] MEDS: CLOPIDOGREL BISULFATE 75 MG TABLET PO (09:36)
[2020-07-20] MEDS: FLUoxetine HCL 20 MG CAPSULE FEED TUBE (09:37)
--- NOTE | 2020-07-20 11:43 | WPDNEURORHBP ---
Subjective Date/time seen: 07/20/20 11:43 49 years old lady with right hemispheric stroke but bilateral multiple areas of carotid stenosis on CTA, as well as on cerebral angiogram that is 670% on the left and 65% on the right intracranially continues to have swallowing difficulties and after initial 48 to 72 hours of difficulties per the NG tube has been placed with PEG and has been tolerating the feeding well through the PEG tube she will continue the G-tube feeding most likely more than 90 days Review of Systems Review of Systems: All systems reviewed & are unremarkable except as noted in HPI and below Exam Const: General: cooperative, comfortable, alert and awake Nutritional Appearance: average body habitus Orientation/consciousness: oriented to person and oriented to place Limitations: physical limitations HENMT: Head: normocephalic Ears: hearing grossly normal bilaterally General nose exam: Normal external nose present and No nasal discharge present Face and sinus: normal facial exam Mouth: Yes Normal oral and palatal mucosa present Eyes: General: appearance normal, both eyes and all related structures Alignment and Position: alignment normal Periorbital: periorbital findings normal Eyelids: eyelids normal Conjunctivae: conjunctivae normal Sclera: sclerae normal Cornea: corneas normal Pupils: Equal, round and reactive pupils present EOM: EOMs intact bilaterally Neck: Neck: full ROM Resp: Effort & Inspection: normal respiratory effort Auscultation: clear to auscultation bilaterally Cardio: Jugular venous distension: no JVD Rate: regular rate Rhythm: regular rhythm GI: Auscultation: normal bowel sounds Skin: General skin exam: no rashes or lesions noted Neuro: General: patient oriented x3 Cranial nerves: Yes CN's II-XII intact bilaterally Cognition (Neuro): normal cognition Speech: Other speech findings present (Neuro) ( slow response) Gait exam (Neuro): Wide-based gait present and Assisted gait required Motor exam (neuro): Abnormal motor strength present ( left hemiparesis) Sensory Exam: Sensory deficit (Neuro) Deep tendon reflexes (DTR's): Right triceps reflex intensity grade: 1+, Left triceps reflex intensity grade: 2+, Rt Biceps (C5, C6): 1+, Left biceps reflex intensity grade: 2+, Right brachioradialis reflex intensity grade: 1+, Left brachioradialis reflex intensity grade: 2+, Right patellar reflex intensity grade: 1+, Left patellar reflex intensity grade: 2+, Right ankle reflex intensity grade: 1+ and Left ankle reflex intensity grade: 2+ Plantar Reflex Responses: downgoing: right and upgoing (positive Babinski): left Coordination: [id number] test normal Psych: Appearance: grossly normal Speech and movement: Slowed speech present (Psych) Affect: Animated affect present Attitude: cooperative Insight: Limited insight present (Psych) Judgement: Limited judgement present (Psych) Objective Data Vital Signs Vital Signs: Vital Signs - 24 hr 07/19/20 14:00 07/19/20 20:00 07/19/20 22:00 Temperature 36.3 C L 36.4 C Pulse Rate 97 64 64 Respiratory Rate 20 16 16 Blood Pressure 101/73 109/54 L Pulse Oximetry 99 98 98 Intake/Output Intake/Output: Intake & Output 07/17/20 07/18/20 07/19/20 07/20/20 23:59 23:59 23:59 23:59 Intake Total 870 1670 900 Output Total 169 614 6129 Balance 170 -925 645 900 Meds/Results Medications: Active Medications Generic Name Dose Route Start Last Admin Trade Name Freq PRN Reason Stop Dose Admin Acetaminophen 650 mg 07/12/20 13:55 07/13/20 21:40 Acetaminophen Elixir 325 Mg/10.15 Ml Udc FEED TUBE 650 mg Q4H PRN Administration Pain or Fever Hydrocodone Bitart/Acetaminophen 1 tab 07/12/20 14:00 Hydrocodone/Acetaminophen (*Crx) 10-325 Mg Tablet FEED TUBE Q8H PRN Pain Amlodipine Besylate 10 mg 07/13/20 09:00 07/20/20 09:36 Amlodipine Besylate 5 Mg Tablet FEED TUBE 10 mg DAILY VERA Administration Atorvastatin Calc
[2020-07-20 13:39] LABS: Glucose Point of Care 166 (65-105)
[2020-07-20 14:00] VITALS: BP 127/79; PULSE 102; RESP 20; TEMP 35.9; O2SAT 97
[2020-07-20 17:35] LABS: Glucose Point of Care 189 (65-105)
--- NOTE | 2020-07-20 17:42 | PC.NURSE ---
new contact phone number: daughter:sheryl bello:[phone]
[2020-07-20 20:00] VITALS: PULSE 102; RESP 20; O2SAT 97
[2020-07-20] MEDS: ATORVASTATIN 40 MG TABLET 80 MG FEED TUBE (20:39)
[2020-07-20 22:00] VITALS: BP 100/67; PULSE 106; RESP 14; TEMP 36.5; O2SAT 99
[2020-07-21 05:43] LABS: Glucose Point of Care 136 (65-105)
[2020-07-21] MEDS: cilostazoL 100 MG TABLET FEED TUBE ×2 (05:49→16:50)
[2020-07-21 06:00] VITALS: BP 114/60; PULSE 92; RESP 18; TEMP 36.2; O2SAT 99
--- NOTE | 2020-07-21 08:18 | PCPTNOTE ---
Gogo Johnson was evaluated for a juanjo lift on 07/21/2020 by this physical therapist. The juanjo lift will resolve patient's mobility limitations and will be used for ADL's within the home. The patient can safely use the juanjo lift. ?The juanjo lift will resolve the patient?s mobility deficits, including left hemiplegia, decreased strength, decreased bed mobility, poor core strength, and poor balance.
[2020-07-21] MEDS: FLUoxetine HCL 20 MG CAPSULE FEED TUBE (09:01)
[2020-07-21] MEDS: amLODIPine BESYLATE 5 MG TABLET 10 MG FEED TUBE (09:01)
[2020-07-21] MEDS: lisinopriL 20 MG TABLET FEED TUBE (09:02)
[2020-07-21] MEDS: CLOPIDOGREL BISULFATE 75 MG TABLET PO (09:02)
[2020-07-21] MEDS: NICOTINE (*PBKC) 7 MG PATCH 1 PATCH TRANSDERM (09:02)
--- NOTE | 2020-07-21 10:19 | WPDNEURORHBP ---
Subjective Date/time seen: 07/21/20 10:19 49 years old lady with right hemispheric stroke, bilateral carotid disease, more involvement of the right hemisphere, and ongoing difficulties with swallowing requiring a pack to which will be continued for more than 3 months, remains stable with temp of 36.2? pulse 92 respiration 18 pulse ox 99% on room air and a blood pressure 114/60, recent lab with WBC 6.9 hemoglobin 11.8 platelet count 187 Exam Const: General: cooperative and no acute distress HENMT: General nose exam: Normal external nose present and No nasal discharge present Face and sinus: normal facial exam Mouth: Yes Normal oral and palatal mucosa present Eyes: General: appearance normal, both eyes and all related structures Chest: Chest palpation & inspection: normal inspection of the chest Resp: Effort & Inspection: normal respiratory effort Cardio: Jugular venous distension: no JVD Rate: regular rate Rhythm: regular rhythm GI: Auscultation: normal bowel sounds Skin: General skin exam: no rashes or lesions noted Neuro: General: oriented to person Cranial nerves: Yes CN's II-XII intact bilaterally, Yes Equal, round and reactive pupils present, Yes Nystagmus not present and Yes Midline tongue present Speech: normal speech ( slow with a flat affect) Motor exam (neuro): Abnormal motor strength present ( left hemiparesis) Sensory Exam: Sensory deficit (Neuro) ( left sensory deficit) Deep tendon reflexes (DTR's): Right triceps reflex intensity grade: 1+, Left triceps reflex intensity grade: 2+, Rt Biceps (C5, C6): 1+, Left biceps reflex intensity grade: 2+, Right brachioradialis reflex intensity grade: 1+, Left brachioradialis reflex intensity grade: 2+, Right patellar reflex intensity grade: 1+, Left patellar reflex intensity grade: 2+, Right ankle reflex intensity grade: 1+ and Left ankle reflex intensity grade: 2+ Plantar Reflex Responses: downgoing: right Extrem: General: capillary refill normal Psych: Appearance: grossly normal Mental Status: other ( flat affect) Speech and movement: Slowed speech present (Psych) Affect: Animated affect present Attitude: cooperative Thought content: Yes other ( not that much conversation) Insight: Fair insight present (Psych) Judgement: Fair judgement present (Psych) Objective Data Vital Signs Vital Signs: Vital Signs - 24 hr 07/20/20 14:00 07/20/20 20:00 07/20/20 22:00 Temperature 35.9 C L 36.5 C Pulse Rate 102 H 102 H 106 H Respiratory Rate 20 20 14 Blood Pressure 127/79 100/67 Pulse Oximetry 97 97 99 07/21/20 06:00 Temperature 36.2 C L Pulse Rate 92 Respiratory Rate 18 Blood Pressure 114/60 Pulse Oximetry 99 Intake/Output Intake/Output: Intake & Output 07/18/20 07/19/20 07/20/20 07/21/20 23:59 23:59 23:59 23:59 Intake Total 1670 900 900 Output Total 925 1025 200 250 Balance -925 645 700 650 Meds/Results Medications: Active Medications Generic Name Dose Route Start Last Admin Trade Name Freq PRN Reason Stop Dose Admin Acetaminophen 650 mg 07/12/20 13:55 07/13/20 21:40 Acetaminophen Elixir 325 Mg/10.15 Ml Udc FEED TUBE 650 mg Q4H PRN Administration Pain or Fever Hydrocodone Bitart/Acetaminophen 1 tab 07/12/20 14:00 Hydrocodone/Acetaminophen (*Crx) 10-325 Mg Tablet FEED TUBE Q8H PRN Pain Amlodipine Besylate 10 mg 07/13/20 09:00 07/21/20 09:01 Amlodipine Besylate 5 Mg Tablet FEED TUBE 10 mg DAILY VERA Administration Atorvastatin Calcium 80 mg 07/12/20 21:00 07/20/20 20:39 Atorvastatin 40 Mg Tablet FEED TUBE 80 mg HS VERA Administration Cilostazol 100 mg 07/12/20 16:30 07/21/20 05:49 Cilostazol 100 Mg Tablet FEED TUBE 100 mg BIDAC VERA Administration Clopidogrel Bisulfate 75 mg 07/06/20 09:00 07/21/20 09:02 Clopidogrel Bisulfate 75 Mg Tablet PO 75 mg DAILY VERA Administration Dextrose 12.5 gm 07/13/20 12:36 Dextrose 50% 25 Gm/50 Ml Syringe IV PUSH PRN PRN
[2020-07-21 12:18] LABS: Phenytoin Dilantin 6 ug/mL (10-20)
[2020-07-21 12:23] LABS: Glucose Point of Care 174 (65-105)
--- NOTE | 2020-07-21 12:25 | PCDIET ---
Nutrition Follow-Up Complete: Nutrition Diagnosis: Involuntary weight loss related to CVA as evidenced by significant 9.9% weight loss x 2 weeks. Nutrition Goal: Patient to meet estimated nutritional needs. Goal met. Patient tolerating Glucerna 1.2 at 75mL/hr x 8 hours overnight with 240mL bolus TID. Continues on 50mL water flush after bolus feeds and every 4 hours overnight. No new recommendations at this time. CVA education not warranted, given tube feedings are sole source of nutrition. Last recorded weight is 55.4 kg. Bowel Motility: +BM today, per nursing flowsheet. Labs Reviewed: Hgb (11.8), Hct (33.5), Glu (165), BUN (33), Na (134) Meds Noted: Norvasc, Lipitor, Phenytoin Additional Notes: No skin changes documented. Will continue to monitor with same goal. Nutrition Monitoring and Evaluation: Follow up every Friday/Friday.
[2020-07-21 14:00] VITALS: BP 112/57; PULSE 96; RESP 20; TEMP 36.6; O2SAT 95
[2020-07-21 16:49] LABS: Glucose Point of Care 161 (65-105)
[2020-07-21 20:46] VITALS: BP 116/59; PULSE 95; RESP 20; TEMP 36.3; O2SAT 98
[2020-07-21] MEDS: ATORVASTATIN 40 MG TABLET 80 MG FEED TUBE (21:52)
[2020-07-21] MEDS: DOCUSATE SODIUM LIQ 100 MG/10 ML UDC FEED TUBE (21:53)
[2020-07-22 06:00] VITALS: BP 111/68; PULSE 91; RESP 20; TEMP 36.2; O2SAT 100
[2020-07-22 06:23] LABS: Glucose Point of Care 126 (65-105)
[2020-07-22] MEDS: cilostazoL 100 MG TABLET FEED TUBE ×2 (06:55→16:41)
[2020-07-22] MEDS: amLODIPine BESYLATE 5 MG TABLET 10 MG FEED TUBE (10:07)
[2020-07-22] MEDS: lisinopriL 20 MG TABLET FEED TUBE (10:07)
[2020-07-22] MEDS: NICOTINE (*PBKC) 7 MG PATCH 1 PATCH TRANSDERM (10:07)
[2020-07-22] MEDS: FLUoxetine HCL 20 MG CAPSULE FEED TUBE (10:07)
[2020-07-22] MEDS: CLOPIDOGREL BISULFATE 75 MG TABLET PO (10:07)
[2020-07-22 13:17] LABS: Glucose Point of Care 164 (65-105)
[2020-07-22 14:00] VITALS: BP 106/54; PULSE 72; RESP 20; TEMP 35.9; O2SAT 98
[2020-07-22] MEDS: ATORVASTATIN 40 MG TABLET 80 MG FEED TUBE (20:06)
[2020-07-22 20:13] LABS: Phenytoin Dilantin 6 ug/mL (10-20)
[2020-07-22 20:46] VITALS: BP 111/62; PULSE 95; RESP 18; TEMP 36.2; O2SAT 98
[2020-07-22 22:08] LABS: Glucose Point of Care 148 (65-105)
[2020-07-23] MEDS: cilostazoL 100 MG TABLET FEED TUBE ×2 (05:58→17:40)
[2020-07-23 06:00] VITALS: BP 120/85; PULSE 91; RESP 18; TEMP 36.6; O2SAT 100
[2020-07-23 06:49] LABS: Glucose Point of Care 202 (65-105)
[2020-07-23] MEDS: FLUoxetine HCL 20 MG CAPSULE FEED TUBE (09:22)
[2020-07-23] MEDS: CLOPIDOGREL BISULFATE 75 MG TABLET PO (09:22)
[2020-07-23] MEDS: lisinopriL 20 MG TABLET FEED TUBE (09:22)
[2020-07-23] MEDS: amLODIPine BESYLATE 5 MG TABLET 10 MG FEED TUBE (09:22)
[2020-07-23] MEDS: NICOTINE (*PBKC) 7 MG PATCH 1 PATCH TRANSDERM (09:23)
--- NOTE | 2020-07-23 13:07 | WPDNEURORHBP ---
Subjective Date/time seen: 07/23/20 13:07 49 years old lady with right hemispheric stroke, bilateral carotid disease intracranially with more involvement of the right hemisphere and ongoing stress swallowing difficulties for which initially she was on oral for feeding and 2 NG tube and now PEG which will last for more than several months additionally she has ongoing history of seizure disorder for which she has been taking medication for more than 10 years unfortunately after the stroke she had recurrent seizures Dilantin level have been around 6 even though she is getting 200 mg twice a day but with the a G-tube she might need extra Dilantin I was considering to start her on Vimpat 50 mg twice a day if her Dilantin levels are staying low Review of Systems Review of Systems: All systems reviewed & are unremarkable except as noted in HPI and below Exam Const: General: cooperative, comfortable and no acute distress Nutritional Appearance: average body habitus Orientation/consciousness: oriented to person HENMT: Ears: hearing grossly normal bilaterally General nose exam: Normal external nose present and No nasal discharge present Face and sinus: normal facial exam Mouth: Yes Normal oral and palatal mucosa present Eyes: General: appearance normal, both eyes and all related structures Alignment and Position: alignment normal Periorbital: periorbital findings normal Eyelids: eyelids normal Conjunctivae: conjunctivae normal Cornea: corneas normal EOM: EOMs intact bilaterally Resp: Effort & Inspection: normal respiratory effort Auscultation: clear to auscultation bilaterally Cardio: Jugular venous distension: no JVD Rate: regular rate GI: Auscultation: normal bowel sounds Skin: General skin exam: no rashes or lesions noted Neuro: General: oriented to person, oriented to place and moves all extremities Cranial nerves: Yes CN's II-XII intact bilaterally, Yes Bilaterally intact EOM present, Yes Nystagmus not present, Yes facial symmetry, Yes Midline tongue present and Yes Normal hearing present Cognition (Neuro): abnormal cognition Speech: Abnormal speech present Gait exam (Neuro): Unable to assess gait Motor exam (neuro): Abnormal motor strength present ( left hemiparesis) Sensory Exam: Sensory deficit (Neuro) Deep tendon reflexes (DTR's): Right triceps reflex intensity grade: 1+, Left triceps reflex intensity grade: 2+, Rt Biceps (C5, C6): 1+, Left biceps reflex intensity grade: 2+, Right brachioradialis reflex intensity grade: 1+, Left brachioradialis reflex intensity grade: 2+, Right patellar reflex intensity grade: 1+, Left patellar reflex intensity grade: 2+, Right ankle reflex intensity grade: 1+ and Left ankle reflex intensity grade: 2+ Plantar Reflex Responses: downgoing: right and upgoing (positive Babinski): left Psych: Affect: Animated affect present Thought content: Yes other Insight: Poor insight present (Psych) Judgement: Poor judgement present (Psych) Objective Data Vital Signs Vital Signs: Vital Signs - 24 hr 07/22/20 14:00 07/22/20 20:46 07/23/20 06:00 Temperature 35.9 C L 36.2 C L 36.6 C Pulse Rate 72 95 91 Respiratory Rate 20 18 18 Blood Pressure 106/54 L 111/62 120/85 Pulse Oximetry 98 98 100 Intake/Output Intake/Output: Intake & Output 07/20/20 07/21/20 07/22/20 07/23/20 23:59 23:59 23:59 23:59 Intake Total 900 900 312 715 Output Total 322 132 5107 350 Balance 700 200 -838 365 Meds/Results Medications: Active Medications Generic Name Dose Route Start Last Admin Trade Name Freq PRN Reason Stop Dose Admin Acetaminophen 650 mg 07/12/20 13:55 07/13/20 21:40 Acetaminophen Elixir 325 Mg/10.15 Ml Udc FEED TUBE 650 mg Q4H PRN Administration Pain or Fever Hydrocodone Bitart/Acetaminophen 1 tab 07/12/20 14:00 Hydrocodone/Acetaminophen (*Crx) 10-325 Mg Tablet FEED TUBE Q8H PRN Pain Amlodipine Besylate 10 mg 07/13/20 09:00 07/23/20 09:22 Amlodipine Besy
[2020-07-23 14:00] VITALS: BP 117/69; PULSE 107; RESP 16; TEMP 36.6; O2SAT 100
[2020-07-23] MEDS: ATORVASTATIN 40 MG TABLET 80 MG FEED TUBE (20:45)
[2020-07-23 21:11] LABS: Glucose Point of Care 95 (65-105)
[2020-07-23 21:17] VITALS: BP 100/52; PULSE 91; RESP 20; TEMP 36.3; O2SAT 100
[2020-07-24 05:55] VITALS: BP 132/64; PULSE 90; RESP 20; TEMP 36.4; O2SAT 99
[2020-07-24] MEDS: cilostazoL 100 MG TABLET FEED TUBE ×2 (06:18→17:20)
[2020-07-24 06:27] LABS: Glucose Point of Care 137 (65-105)
[2020-07-24] MEDS: NICOTINE (*PBKC) 7 MG PATCH 1 PATCH TRANSDERM (09:22)
[2020-07-24] MEDS: FLUoxetine HCL 20 MG CAPSULE FEED TUBE (09:23)
[2020-07-24] MEDS: CLOPIDOGREL BISULFATE 75 MG TABLET PO (09:23)
[2020-07-24] MEDS: lisinopriL 20 MG TABLET FEED TUBE (09:23)
[2020-07-24] MEDS: amLODIPine BESYLATE 5 MG TABLET 10 MG FEED TUBE (09:23)
[2020-07-24 11:05] LABS: Phenytoin Dilantin 9 ug/mL (10-20)
--- NOTE | 2020-07-24 13:33 | PCPTNOTE ---
[facility] 07/21/2020 by this physical therapist. The juanjo lift will resolve patient's mobility limitations as the patient is currently bed-confined due to being dependent for all transfers. The patient demonstrates significant mobility deficits due to her recent CVA--resulting in left hemiparesis, reduced left-sided awareness, decreased strength in bilateral upper and lower extremities and core strength, impaired static and dynamic sitting balance, non-ambulatory given severity of deficits, and impaired cognition and safety awareness. The patient has aspiration precautions and requires tube feeding for all nutrition due to currently being NPO. The juanjo lift would be use to assist the patient from bed to wheelchair/wheelchair to bed. The patient's family would benefit from use of a juanjo lift in order to ensure optimal patient safety and decrease caregiver burden. The patient is 5 ft 2.5in and 55.4kg. Colette Kumar, PT, DPT
--- NOTE | 2020-07-24 13:49 | PCPTNOTE ---
[facility] 07[facility]19/2020 by this physical therapist. The hospital bed will reduce patient's mobility limitations, decrease caregiver burden, and facilitate optimal safety for the patient. The patient would benefit from a semi-electric hospital bed with elevating/lowering function for the head of bed in order to comply with the patient's current aspiration precautions (requiring head of bed to be greater than 30 degrees at all times). The patient has a G-tube and requires tube feeding for all nutrition at this time given the severity of her swallowing deficits. The patient demonstrates significant mobility deficits due to her recent CVA--resulting in left hemiparesis, reduced left-sided awareness, decreased strength in bilateral upper and lower extremities and core strength, impaired static and dynamic sitting balance, non-ambulatory given severity of deficits, and impaired cognition and safety awareness. She is incontinent of both urine and bowel and requires dependent cleaning from a bedside level due to the patient's reduced strength and trunk control resulting in inability to safely manage a seated shower. A semi-electric hospital bed would benefit the patient's family in order to assist with elevating/lowering the bed height in order to accommodate the family during bed baths, ADL's within the bed, and dependent juanjo lift transfer from bed to wheelchair. The patient would also benefit from an alternating pressure relief mattress due to the patient requiring up to maximal assisting for all bed mobility (e.g. rolling left and right, sit to supine/supine to sit) and is dependent for position changes while in bed in order to prevent skin breakdown. The patient currently has a healing sacral sore and is at risk for further breakdown given reduced functional mobility, impaired cognition/safety awareness, and reduced left sided sensation. Colette Kumar, PT, DPT
[2020-07-24 14:00] VITALS: BP 103/63; PULSE 105; RESP 20; TEMP 36.2; O2SAT 100
[2020-07-24 17:57] LABS: Glucose Point of Care 113 (65-105)
[2020-07-24] MEDS: guaiFENesin 200 MG/10 ML UDC FEED TUBE (18:01)
[2020-07-24 20:04] VITALS: BP 110/55; PULSE 95; RESP 20; TEMP 37; O2SAT 98
[2020-07-24] MEDS: ATORVASTATIN 40 MG TABLET 80 MG FEED TUBE (20:20)
[2020-07-24 21:17] LABS: Glucose Point of Care 160 (65-105)
[2020-07-25] MEDS: guaiFENesin 200 MG/10 ML UDC FEED TUBE (00:25)
[2020-07-25 06:00] VITALS: BP 123/68; PULSE 96; RESP 16; TEMP 36.5; O2SAT 100
[2020-07-25] MEDS: cilostazoL 100 MG TABLET FEED TUBE ×2 (06:05→16:52)
[2020-07-25 06:45] LABS: Glucose Point of Care 137 (65-105)
[2020-07-25 08:00] VITALS: PULSE 96; RESP 16; O2SAT 100
[2020-07-25] MEDS: NICOTINE (*PBKC) 7 MG PATCH 1 PATCH TRANSDERM (09:21)
[2020-07-25] MEDS: amLODIPine BESYLATE 5 MG TABLET 10 MG FEED TUBE (09:22)
[2020-07-25] MEDS: lisinopriL 20 MG TABLET FEED TUBE (09:23)
[2020-07-25] MEDS: FLUoxetine HCL 20 MG CAPSULE FEED TUBE (09:23)
[2020-07-25] MEDS: CLOPIDOGREL BISULFATE 75 MG TABLET PO (09:23)
--- NOTE | 2020-07-25 09:56 | WPDNEURORHBP ---
Subjective Date/time seen: 07/25/20 09:56 49 years old with right hemispheric stroke with left hemiparesis in addition to underlying bilateral carotid disease resulting in the bilateral hemispheric dysfunction requiring the tube feeding with inability to swallow as a person should do only with 1 hemispheric stroke in addition she has ongoing history of underlying seizure disorder for which she has been on the anticonvulsant mainly Dilantin during the hospitalization here she has had 2 seizures 1 was definitely [place] when she was admitted other 1 for partial and her Dilantin has been adjusted [id number] per day while she was taking only 300 which she came in during the hospitalization she has been placed on the PEG was a tube feeding which definitely will continue more than 3 months she also will require hospital bed hotter left bathing aide and ongoing therapy and tube feeding she will be transferred from the hospital by the ambulance all the arrangements have been made the situation has been discussed in the team meeting. Remained afebrile with temp of 30? 6.5% 96 respirations 16 pulse ox 100 blood pressure 123/68 and in supine position she on room air Review of Systems Review of Systems: All systems reviewed & are unremarkable except as noted in HPI and below Exam Const: General: cooperative, no acute distress and confusion Nutritional Appearance: average body habitus Orientation/consciousness: oriented to person Limitations: altered mental status, language barrier and physical limitations HENMT: Head: normocephalic Ears: hearing grossly normal bilaterally General nose exam: Normal external nose present and No nasal discharge present Face and sinus: normal facial exam Eyes: General: appearance normal, both eyes and all related structures Visual Trinidad: normal visual trinidad by confrontation Alignment and Position: alignment normal Periorbital: periorbital findings normal Eyelids: eyelids normal Conjunctivae: conjunctivae normal Sclera: sclerae normal Cornea: corneas normal Pupils: Equal, round and reactive pupils present EOM: EOMs intact bilaterally Direct Ophthalmoscopy: normal light reflex Resp: Effort & Inspection: normal respiratory effort and Actively coughing ( at times intermittently x-ray chest was done which was negative) Auscultation: clear to auscultation bilaterally Cardio: Jugular venous distension: no JVD Rate: regular rate Rhythm: regular rhythm GI: Auscultation: normal bowel sounds Skin: General skin exam: no rashes or lesions noted Neuro: General: oriented to person, oriented to place, moves all extremities, no meningeal signs and confusion Cranial nerves: Yes Equal, round and reactive pupils present, Yes Bilaterally intact EOM present, Yes Nystagmus not present, Yes facial symmetry, Yes Midline tongue present and Yes Normal hearing present Cognition (Neuro): normal cognition and abnormal cognition Speech: Abnormal speech present Gait exam (Neuro): Unable to assess gait Motor exam (neuro): Abnormal motor strength present ( left hemiparesis) Sensory Exam: Sensory deficit (Neuro) ( on the left side) Deep tendon reflexes (DTR's): Right triceps reflex intensity grade: 1+, Left triceps reflex intensity grade: 2+, Rt Biceps (C5, C6): 1+, Left biceps reflex intensity grade: 2+, Right brachioradialis reflex intensity grade: 1+, Left brachioradialis reflex intensity grade: 2+, Right patellar reflex intensity grade: 1+, Left patellar reflex intensity grade: 2+, Right ankle reflex intensity grade: 1+ and Left ankle reflex intensity grade: 2+ Plantar Reflex Responses: downgoing: right and upgoing (positive Babinski): left Psych: Speech and movement: Slowed speech present (Psych) Affect: Animated affect present Attitude: Other attitude/behavior findings present (Psych) ( makes good eye contact, recognizes the physician, his smile very minimal t) Insight: Limited insight present (Psych) Objective Data Vital Signs Vital Signs:
[2020-07-25 10:48] LABS: Basophils Percent Auto 0.5 % (0.2-1.2); Eosinophils Absolute Auto 0.4 K/mm3 (0-0.3); Eosinophils Percent Auto 4.7 % (0-4.4); Hematocrit 32.6 % (37.0-47.0); Hemoglobin 11.4 g/dL (12.0-15.0); Immature Granulocyte Absolute 0.04 K/mm3 (0.00-0.031); Immature Granulocyte Percent A 0.5 % (0-0.5); Lymphocytes Absolute Auto 1.97 K/mm3 (0.9-3.2); Lymphocytes Percent Auto 23.1 % (18.3-44.2); Mean Corpuscular Hemoglobin 30.2 pg (26-34); Mean Corpuscular Volume 86.5 fl (80-100); Monocytes Absolute Auto 0.5 K/mm3 (0.1-0.6); Monocytes Percent Auto 5.6 % (2.6-8.5); Neutrophils Absolute Auto 5.6 K/mm3 (1.3-6.7); Neutrophils Percent Auto 65.6 % (45.5-73.1); Platelet Count Result 184 k/mm3 (150-375); Red Blood Count 3.77 M/mm3 (4.2-5.4); Red Cell Distribution Width 12.1 % (11.5-14.5); White Blood Count 8.5 K/mm3 (4.5-10.0)
[2020-07-25 11:05] LABS: Alanine Aminotransferase 67 U/L (4-35); Albumin Level 4.4 g/dL (3.5-5.1); Alkaline Phosphatase 144 U/L (38-126); Anion Gap 7 mmol/L (8-16); Aspartate Amino Transferase 56 U/L (14-36); Bilirubin,Total 0.3 mg/dL (0.2-1.3); Blood Urea Nitrogen 25 mg/dL (7-17); Calcium 9.1 mg/dL (8.4-10.2); Carbon Dioxide 29 mmol/L (22-30); Chloride 94 mmol/L (98-107); Estimated CRCL calculation 53 ml/min; Estimated Glomerular Filt Rate > 60; Glucose 131 mg/dL (65-105); Potassium 4.8 mmol/L (3.4-5.0); Sodium 130 mmol/L (137-145)
--- NOTE | 2020-07-25 13:38 | PCDIET ---
Nutrition Follow-Up Complete: Nutrition Diagnosis: Involuntary weight loss related to CVA as evidenced by significant 9.9% weight loss x 2 weeks. Nutrition Goal: Patient to consume 75% of meals/supplements or greater and maintain weight. Goal met. Patient tolerating overnight continuous feedings and bolus feedings throughout the day. Last recorded weight is 55.4 kg. Recommend obtaining new weight. Bowel Motility: +BM today. Labs Reviewed: Glu (137) Meds Noted: Norvasc, Lipitor, Plavix, Lisinopril, Phenytoin Additional Notes: No documented skin breakdown. Will continue to monitor with same goal. Nutrition Monitoring and Evaluation: Follow up every Friday/Friday.
[2020-07-25 14:00] VITALS: BP 100/68; PULSE 93; RESP 18; TEMP 36.6; O2SAT 98
[2020-07-25 20:15] VITALS: PULSE 84; RESP 18; O2SAT 97
[2020-07-25 20:18] VITALS: BP 105/60; PULSE 84; RESP 18; TEMP 36.5; O2SAT 97
[2020-07-25 20:55] LABS: Glucose Point of Care 147 (65-105)
[2020-07-25] MEDS: ATORVASTATIN 40 MG TABLET 80 MG FEED TUBE (21:02)
[2020-07-26 05:46] VITALS: BP 98/62; PULSE 89; RESP 20; TEMP 36.3; O2SAT 99
[2020-07-26] MEDS: cilostazoL 100 MG TABLET FEED TUBE ×2 (06:06→16:39)
[2020-07-26 07:02] LABS: Glucose Point of Care 136 (65-105)
[2020-07-26] MEDS: lisinopriL 20 MG TABLET FEED TUBE (09:21)
[2020-07-26] MEDS: CLOPIDOGREL BISULFATE 75 MG TABLET PO (09:21)
[2020-07-26] MEDS: FLUoxetine HCL 20 MG CAPSULE FEED TUBE (09:21)
[2020-07-26] MEDS: NICOTINE (*PBKC) 7 MG PATCH 1 PATCH TRANSDERM (09:21)
[2020-07-26] MEDS: amLODIPine BESYLATE 5 MG TABLET 10 MG FEED TUBE (09:21)
[2020-07-26 14:00] VITALS: BP 111/70; PULSE 87; RESP 20; TEMP 36.1; O2SAT 97
--- NOTE | 2020-07-28 12:36 | PM.DS ---
DS: Admitting Diagnosis Admitting Diagnosis Admitting Diagnosis: stroke DS: Summary Hospital Course Hospital Course: stable Time Spent with Patient Time attestation: ADMISSION FUNCTION: 49 years old lady admitted to the rehab floor with the primary rehab impairment category of his stroke and etiological diagnosis of right small vessel ischemic strokes in addition to the ongoing history of 1. Seizure disorder 2. Hypertension and with the documentation of abnormal CTA that his multiple areas of bilateral carotid stenosis, negative TTE and cerebral angiogram with intracranial arterial stenosis on the left 70% and on the right 65% and also the information that she passed the swallowing study and was on pureed diet with nectar thickened liquids at the time of admission. Her COVID was negative. Her level of functions were as follows. Eating Not applicable Oral Care substantial or maximal assist Toileting Hygiene dependent Shower/Bathing substantial or max assist Upper Body Dressing substantial or max assist Lower Body Dressing dependent Donning/[place] Footwear dependent Rolling Left and Right substantial or max assist Sit to Lying substantial or max assist Lying to Sitting substantial or max assist Sit to Stand substantial or max assist Bed to Chair Transfers dependent Toilet Transfers dependent Car Transfers not applicable Walking 10' not applicable Walking 50' with Two Turns not applicable Walking 150' not applicable 4 Steps not applicable 12 Steps not applicable Picking Up Object not applicable [Wheelchair Mobility 50'] partial or mod assist [Wheelchair Mobility 150'] not applicable GOALS: Eating set up Oral Care set up Toileting Hygiene partial or mod assist Shower/Bathing partial or mod assist Upper Body Dressing partial or mod assist Lower Body Dressing partial or mod assist Donning/[place] Footwear partial or mod assist Rolling Left and Right independent Sit to Lying [INDEPENDENT] Lying to Sitting [INDEPENDENT] Sit to Stand partial or mod assist Bed to Chair Transfers partial or mod assist Toilet Transfers partial or modest Car Transfers partial or modest Walking 10' partial or modest Walking 50' with Two Turns not applicable Curb or Step partial or mod assist 4 Steps not appy 12 Steps not applicable Picking Up Object partial or mod assist [Wheelchair Mobility 50'] supervision [Wheelchair Mobility 150'] supervision DISCHARGE PERFORMANCE: Eating not applicable Oral Care set up Toileting Hygiene dependent Shower/Bathing partial or modest Upper Body Dressing partial or mod assist Lower Body Dressing partial or mod assist Donning/[place]erv[place] Footwear partial or mod assist Rolling Left and Right supervision Sit to Lying partial or modest Lying to Sitting partial or mod assist Sit to Stand partial or mod assist Bed to Chair Transfers partial or mod assist Toilet Transfers partial or mod assist Car Transfers partial or mod assist Walking 10' not happy Walking 50' with Two Turns not applicable Walking 150' [ not applicable Curb or Step not applicable 4 Steps not applicable 12 Steps not applicable Picking Up Object not applicable [Wheelchair Mobility 50'] partial or modest [Wheelchair Mobility 150'] not applicable subsequent to admission here patient was noted to have a seizure with partial onset. at that time her anticonvulsants levels were checked and her Dilantin levels were definitely subtherapeutic. she was to be given increased dosage of Dilantin as order. During the 1st few days she was getting the tube feeding but she was pulling the tube out by herself several times that led to the placement of the PEG as per the commercial tire service technician Dr. Hubert davis. The tube feeding was gradually adjusted, the Dilantin was given through the tube and the repeat levels were still low then the dosage was increased Accordingly. Patient's situation was discussed in the family meeting who were i
== END 2020-07-26 18:55 | disposition home health service (06) | DRG 57 ==
PROVIDERS: Internal Medicine Gastroenterology; Admitting Provider Psychiatry & Neurology Neurology; PCP Internal Medicine Infectious Disease; Visit Provider Psychiatry & Neurology Neurology
PROC: 0DJ08ZZ Inspection of Upper Intestinal Tract, Via Natural or Artificial Opening Endoscopic (ICD-10-PCS; CPT 43235; principal; 2020-07-12 12:00)
PROC: 0DH63UZ Insertion of Feeding Device into Stomach, Percutaneous Approach (ICD-10-PCS; CPT 43246; 2020-07-12 12:00)
DX: I69.354 Hemiplegia and hemiparesis following cerebral infarction affecting left non-dominant side (principal); E87.1 Hypo-osmolality and hyponatremia; I69.391 Dysphagia following cerebral infarction; I69.392 Facial weakness following cerebral infarction; R13.10 Dysphagia, unspecified; Z93.1 Gastrostomy status; E78.5 Hyperlipidemia, unspecified; F32.9 Major depressive disorder, single episode, unspecified; F17.210 Nicotine dependence, cigarettes, uncomplicated; G40.909 Epilepsy, unspecified, not intractable, without status epilepticus; I65.23 Occlusion and stenosis of bilateral carotid arteries; I10 Essential (primary) hypertension; R06.89 Other abnormalities of breathing
CPT/HCPCS: 36415; 43246; 43752; 71046; 80048; 80053; 80061; 80185; 83036; 85025; 92507; 92523; 92526; 92610; 97110; 97112; 97140; 97162; 97166; 97530; 97535; 97542; A9270; J0690; J1165; J1815; J2704; J7120; Q9967

== ENCOUNTER 2020-09-18 14:58 | Outpatient (CLI) | payer MEDICARE, MEDICAID, SELFPAY ==
--- NOTE | ~2020-09-18 | XR_ITS ---
EXAMINATION: XR barium swallow modified EXAM DATE: 09/18/2020 15:40 INDICATION: Dysphagia. Stroke. TECHNIQUE: Modified barium esophagram was performed by myself to administered fluoroscopy, in conjun ction with speech pathologist who administered barium in varying consistencies as per speech patholog ist documentation. This was recorded on tape. The DAP for this procedure was 0.9 Gycm2. FINDINGS: Oral stage: Edentulous. Pharyngeal phase: Adequate function. Laryngeal penetration: None. Aspiration: None. Laryngeal sensitivity: Present. IMPRESSION: Patient tolerated oral feedings in the upright position. Please refer to speech patholo gist findings and specific feeding recommendations. Reviewed, dictated and finalized at location A. IMPRESSION: Patient tolerated oral feedings in the upright position. Please r efer to speech pathologist findings and specific feeding recommendations.
--- NOTE | 2020-09-18 16:34 | STOPEVAL ---
MODIFIED BARIUM SWALLOW EVALUATION: Thank you for referring Gogo Johnson to [facility].? Attending Provider: Marc HusainLaura fax: [phone] *ST Outpatient Evaluation Prior Level of Function Prior Swallow Level Prior Intake Method NPO/PEG Modified Barium Swallow Evaluation Recent Swallowing History Reports Dysphagia Yes: difficulty from recent CVA Onset of Dysphagia 07-06-21 History of Dysphagia No History of Related Medical Diagnosis CVA Other Factors Impacting Dysphagia Neurological Impairment Reported Difficult Consistencies Thin Liquids,Thick Liquids, Solids Intake Method Prior to Swallow Gastrostomy,NPO Evaluation Dentition Comments edentulous Consistency Thin Uncontrolled 2 Method of Presentation Straw Oral Preparatory Symptoms Within Functional Limits Oral Phase Symptoms Within Functional Limits Pharyngeal Phase Symptoms Within Functional Limits Severity of Vallecular Residue None - 0% No Residue Severity of Pyriform Sinus Residue None - 0% No Residue 8 Point Laryngeal Penetration-Aspiration Material Does Not Enter Airway Scale Cervical/Esophageal Symptoms Within Functional Limits Thin Uncontrolled 1 Method of Presentation Cup Oral Preparatory Symptoms Within Functional Limits Oral Phase Symptoms Within Functional Limits Pharyngeal Phase Symptoms Within Functional Limits Severity of Vallecular Residue None - 0% No Residue Severity of Pyriform Sinus Residue None - 0% No Residue 8 Point Laryngeal Penetration-Aspiration Material Does Not Enter Airway Scale Cervical/Esophageal Symptoms Within Functional Limits Solid Consistency Other Amount crumbled cracker Method of Presentation Spoon Oral Preparatory Phase Comments unable to masticate due to decreased dentition. Oral Phase Comments unable to masticate due to decreased dentition; pt was eventually able to clear oral cavity of all contents. Pharyngeal Phase Symptoms Within Functional Limits Severity of Vallecular Residue None - 0% No Residue Severity of Pyriform Sinus Residue None - 0% No Residue 8 Point Laryngeal Penetration-Aspiration Material Does Not Enter Airway Scale Cervical/Esophageal Symptoms Within Functional Limits Mixed Consistency Method of Presentation Spoon Oral Preparatory Symptoms Unable to Form Bolus Oral Preparatory Phase Comments unable to masticate due to decreased dentition. Oral Phase Comments unable to masticate due to decreased dentition; pt was eventually able to clear oral
== END 2020-09-18 14:59 | disposition home or self-care (01) ==
PROVIDERS: PCP Internal Medicine Infectious Disease; Visit Provider Internal Medicine Infectious Disease
DX: R13.10 Dysphagia, unspecified (principal); Z86.73 Personal history of transient ischemic attack (TIA), and cerebral infarction without residual deficits
CPT/HCPCS: 92611

== ENCOUNTER 2021-03-06 13:48 | Inpatient (IN) | payer MEDICARE, MEDICAID, SELFPAY ==
--- NOTE | ~2021-03-06 | MR_ITS ---
EXAMINATION: MR elbow LT wo/w con DATE: 03/08/2021 12:34 INDICATION: Posterior wound/ulcer at the left elbow with concern for osteomyelitis. TECHNIQUE: Magnetic resonance imaging (MRI) of the left elbow was performed without intravenous contr ast. Sequences included axial, sagittal and coronal T1-weighted FSE and fluid sensitive FSE STIR, sag ittal T1-weighted FS FSE and postcontrast axial and sagittal T1-weighted FS FSE. COMPARISON: Left elbow radiographs dated 03/06/2021 FINDINGS: There is edema and nonmasslike enhancement in the proximal aspect of the muscle bellies of the extens or compartment of the proximal forearm consistent with myositis. Prominent edema in the overlying sub cutaneous fat consistent with cellulitis. Bone alignment is normal. There is marrow edema and enhance ment most prominent at the lateral epicondyle of the distal humerus and with geographic loss of T1 si gnal at the lateral tip of the epicondyle consistent with osteomyelitis. There is more subtle marrow edema and enhancement at the dorsal/lateral aspect of the olecranon without T1 marrow fat signal loss which could be either reactive or very early osteomyelitis. Left elbow joint space appears normal wi th no effusion to suggest a septic arthritis. There are 3 enlarged relatively round and enhancing lik jurgen reactive lateral epitrochlear lymph nodes measuring from 5-7 mm in maximal short axis diameters. IMPRESSION: 1. Cellulitis, underlying myositis and osteomyelitis involving the tip of the left humeral lateral ep icondyle in the proximal aspect of the musculature of the extensor compartment. 2. Likely reactive mild lateral epitrochlear lymphadenopathy. Reviewed, dictated and finalized at location A. IMPRESSION: 1. Cellulitis, underlying myositis and osteomyelitis involving the tip of the l eft humeral lateral epicondyle in the proximal aspect of the musculature of the extensor compartment. 2. Likely reactive mild lateral epitrochlear lymphadenopathy.
--- NOTE | ~2021-03-06 | XR_ITS ---
EXAMINATION: XR elbow LT 2V DATE: 03/06/2021 17:18 INDICATION: Left elbow wound. TECHNIQUE: 2 views of left elbow on 3 radiographs were obtained. COMPARISON: None. FINDINGS: Bone alignment is normal. No fracture. Joint spaces are well maintained. There is no elbow joint effusion. IMPRESSION: 1. No specific evidence of osteomyelitis. Reviewed, dictated and finalized at location A.
[2021-03-06 14:07] VITALS: BP 124/73; PULSE 108; RESP 20; TEMP 36.7; O2SAT 96
--- NOTE | 2021-03-06 16:49 | ED.WOUNDLAC ---
HPI - Wound/Laceration General Chief Complaint: Wound/Laceration Stated Complaint: left elbow wound Time Seen by Provider: 03/06/21 16:46 Source: patient Mode of arrival: ambulatory Limitations: physical limitation History of Present Illness HPI narrative: Patient is a 50-year-old female complaining of left elbow wound, worse, with purulent discharge that started 2 weeks ago and now is worse. Patient denies any chest pain, shortness breath, abdominal pain, nausea, vomiting, fever or chills. Patient had 1 episode of seizure while in the ER waiting room and was brought in. Patient does have a history of seizures. Seizure lasted for approximately 1 to 2 minutes, witnessed, no head injury, patient was sitting down when it happened. Related Data Allergies Allergy/AdvReac Type Severity Reaction Status Date / Time aspirin Allergy Seizure Verified 06/26/20 18:55 Review of Systems Review of Systems: All systems reviewed & are unremarkable except as noted in HPI and below Constitutional: Constitutional: Denies body ache(s), Denies chills, Denies excessive sweating, Denies fatigue, Denies fever(s), Denies headache(s), Denies lethargy, Denies malaise, Denies weakness and Denies weight loss Eyes: Eyes: Denies blurry vision, Denies change in vision and Denies loss of vision ENT: Denies dizziness, Denies ear discharge, Denies headache(s), Denies lip swelling, Denies epistaxis, Denies nasal congestion, Denies neck pain, Denies throat swelling and Denies tongue swelling Cardiovascular: Cardiovascular: Denies chest pain, Denies chest pain at rest, Denies chest pain with activity, Denies diaphoresis, Denies rapid heart rate, Denies edema, Denies irregular heart rhythm, Denies lightheadedness, Denies palpitations, Denies dyspnea and Denies dyspnea on exertion Respiratory: Respiratory: Denies chest congestion, Denies cough, Denies hemoptysis, Denies dyspnea and Denies dyspnea on exertion Gastrointestinal: Gastrointestinal: Denies abdominal pain, Denies melena, Denies hematochezia, Denies diarrhea, Denies nausea, Denies vomiting and Denies hematemesis Musculoskeletal: Musculoskeletal: Denies abnormal gait, Denies deformity, Denies neck pain and Denies numbness Neurologic: Denies Abnormal speech present, Denies abnormal gait, Denies confusion, Denies dizziness, Denies headache(s), Denies focal weakness, Denies loss of vision, Denies numbness, Denies Other visual disturbances, Denies Sensory deficit (Neuro) and Denies weakness Psychiatric: Psychiatric: Denies confusion, Denies depression, Denies auditory hallucinations, Denies homicidal ideation and Denies suicidal ideation Endocrine: Endocrine: Denies cold intolerance, Denies excessive sweating, Denies fatigue, Denies heat intolerance and Denies palpitations Allergic/Immunologic: Allergic/Immunologic: Denies lip swelling, Denies throat swelling and Denies tongue swelling PMFSH Past Medical History Medical History Acute left hemiparesis Depression Dysphagia as late effect of cerebrovascular accident (CVA) Elevated blood sugar Head ache Hypertension Hypokalemia Seizure disorder Tobacco abuse Surgical History Surgical History History of laparotomy Family History Family History Sibling Heart disease Social History Social History Social History: The patient has 2 sons in the live with her. She is . She is disabled. She does not have a durable power patent prosecution attorney for healthcare. She is a full code. She denies any alcohol or substance abuse. Smoking packs per day: 1.5 Smoking cigarettes per day: 30.0 Smoking status: Current every day smoker Tobacco type: cigarettes Alcohol intake: never Substance use: never Spiritual care concerns: No Exam Const:
[2021-03-06] MEDS: LACTATED RINGERS 1,000 ML 999 ML IV CONT ×2 (17:25→18:51)
--- NOTE | 2021-03-06 17:43 | PC.NURSE ---
patient was observed foaming at the mouth by other patients in waiting area. patient brought back to exam room for possible seizure. patient was speaking when brought to exam room with no seizure activity
[2021-03-06 17:52] LABS: Basophils Percent Auto 0.4 % (0.2-1.2); Eosinophils Percent Auto 0.3 % (0-4.4); Hematocrit 47.9 % (37.0-47.0); Hemoglobin 14.4 g/dL (12.0-15.0); Immature Granulocyte Absolute 0.07 K/mm3 (0.00-0.031); Immature Granulocyte Percent A 0.8 % (0-0.5); Lymphocytes Absolute Auto 1.21 K/mm3 (0.9-3.2); Lymphocytes Percent Auto 13.1 % (18.3-44.2); Mean Corpuscular HGB Conc 30.1 g/dl (32-36); Mean Corpuscular Hemoglobin 27.2 pg (26-34); Mean Corpuscular Volume 90.5 fl (80-100); Mean Platelet Volume 9.2 fl (7.4-10.4); Monocytes Absolute Auto 0.4 K/mm3 (0.1-0.6); Neutrophils Absolute Auto 7.6 K/mm3 (1.3-6.7); Neutrophils Percent Auto 81.4 % (45.5-73.1); Platelet Count Result 304 k/mm3 (150-375); Red Blood Count 5.29 M/mm3 (4.2-5.4); Red Cell Distribution Width 13.1 % (11.5-14.5); White Blood Count 9.3 K/mm3 (4.5-10.0)
[2021-03-06 18:09] LABS: Alanine Aminotransferase 12 U/L (4-35); Albumin Level 4.5 g/dL (3.5-5.1); Alkaline Phosphatase 126 U/L (38-126); Anion Gap 22 mmol/L (8-16); Aspartate Amino Transferase 28 U/L (14-36); Bilirubin,Total 1.2 mg/dL (0.2-1.3); Blood Urea Nitrogen 8 mg/dL (7-17); Calcium 9.3 mg/dL (8.4-10.2); Carbon Dioxide 21 mmol/L (22-30); Chloride 93 mmol/L (98-107); Estimated CRCL calculation 67 ml/min; Estimated Glomerular Filt Rate > 60; Glucose 170 mg/dL (65-110); Potassium 3.7 mmol/L (3.4-5.0); Sodium 136 mmol/L (137-145)
[2021-03-06 18:14] LABS: Phenytoin Dilantin < 3 ug/mL (10-20)
[2021-03-06 18:55] LABS: INR 1.2; Prothrombin Time 14.7 Seconds (11.1-14.7)
[2021-03-06 18:56] LABS: Partial Thromboplastin Time 26.9 SECONDS (22.3-36.8)
[2021-03-06 19:33] VITALS: BP 136/74; PULSE 103; RESP 14; O2SAT 99
[2021-03-06 20:46] LABS: Reflex Lactic Acid Yes or No Add Lactic
--- NOTE | 2021-03-06 22:15 | PC.NURSE ---
patients shad area has multiple wounds. maggots noted on skin
--- NOTE | 2021-03-06 22:19 | PC.NURSE ---
call placed to adult protective services abuse hotline. message left
[2021-03-06 22:44] VITALS: BP 142/68; PULSE 98; RESP 20; O2SAT 98
--- NOTE | 2021-03-06 23:04 | PC.NURSE ---
spoke with Rich at adult protective services to file report. case referred to [facility] for investigation
--- NOTE | 2021-03-06 23:28 | PM.IMHP ---
H&P: HPI History of Present Illness Date/Time: 03/06/21 23:28 Chief Complaint: Left elbow Narrative: This is a 50-year-old female with past medical history significant for stroke, left-sided hemiparesis, expressive aphasia, peg tube placement, chronic indwelling [place] catheter, seizure disorder, tobacco dependence. Patient was brought to the emergency room due to worsening of a left elbow wound with purulent discharge that her daughter was taking care of at home. Patient is unable to give any history. She also had a seizure episode while waiting in the emergency room waiting area and was brought in in lasted 1 or 2 minutes and was loaded with Keppra. Preliminary workup was significant for subtherapeutic phenytoin level an elbow x-ray was negative for osteomyelitis. Most of the history has been obtained from reviewing medical records from prior admission and discharge as well as today's visit to emergency room. Review of Systems Review of Systems: ROS unobtainable: Yes unobtainable due to mental status PMFSH Past Medical History Medical History Acute left hemiparesis Depression Dysphagia as late effect of cerebrovascular accident (CVA) Elevated blood sugar Head ache Hypertension Hypokalemia Seizure disorder Tobacco abuse Surgical History Surgical History History of laparotomy Family History Family History Sibling Heart disease Social History Social History (Updated 03/07/21 @ 02:01 by Kanchan Wise RN) Social History: The patient has 2 sons in the live with her. She is . She is disabled. She does not have a durable power tax associate attorney for healthcare. She is a full code. She denies any alcohol or substance abuse. Smoking packs per day: 1.5 Smoking cigarettes per day: 30.0 Smoking status: Current every day smoker Tobacco type: cigarettes Alcohol intake: never Substance use: never Living arrangements: with family Occupation/Education: other Spiritual care concerns: No Meds Home Medications and Allergies Home Medications Medication Instructions Recorded Confirmed Type acetaminophen [[place]] 650 mg FEEDING TUBE Q4H PRN #12 oz 07/26/20 Rx amlodipine 10 mg PO DAILY #30 tablet 07/26/20 Rx atorvastatin 80 mg PO HS #30 tablet 07/26/20 Rx cilostazol 100 mg PO BID #60 tablet 07/26/20 Rx clopidogrel 75 mg PO DAILY #30 tablet 07/26/20 Rx docusate sodium 100 mg FEEDING TUBE Q12HR PRN #60 07/26/20 Rx ml fluoxetine 20 mg PO DAILY #150 ml 07/26/20 Rx guaifenesin 200 mg FEEDING TUBE Q4H PRN #16 oz 07/26/20 Rx hydrocodone-acetaminophen [[place]] 1 tablet PO Q8H PRN #50 tablet 07/26/20 Rx lisinopril 40 mg PO DAILY #30 tablet 07/26/20 Rx nicotine 1 patch TRANSDERMAL DAILY #15 ea 07/26/20 Rx ondansetron 4 mg PO Q4HR PRN #30 tablet 07/26/20 Rx phenytoin sodium extended 300 mg PO HS #30 cap 07/26/20 Rx [Dilantin Extended] Allergies Allergy/AdvReac Type Severity Reaction Status Date / Time aspirin Allergy Seizure Verified 03/07/21 01:48 Vital Signs Vital Signs - 24 hr 03/06/21 14:07 03/06/21 19:33 03/06/21 22:44 Temperature 98.0 F Pulse Rate 108 H 103 H 98 Respiratory Rate 20 14 20 Blood Pressure 124/73 136/74 142/68 H Pulse Oximetry 96 99 98 Exam Narrative: Patient is laying in [facility] Const: General: comfortable, no acute distress, well developed, ill appearing and lethargic Nutritional Appearance: thin HENMT: Head: normal to inspection, normocephalic and atraumatic Ears: hearing grossly normal bilaterally General nose exam: Normal external nose present Face and sinus: normal facial exam and other (Hyrsutism) Mouth: Yes dry mucous membranes Teeth and gingiva: poor dentition Eyes: General: appearance normal, both eyes and all related structures Alignment and Position: alignment norm
--- NOTE | 2021-03-07 00:55 | ADMGEN ---
This patient, Gogo Johnson, was admitted to Medical Room 344-01. Patient/family oriented to hospital policies and general routines including ID bracelet, bed and alarms, visiting hours, pain management, procedures, bathroom and other care routines, personal items, smoking policy, room service/diet, and visiting hours. Information on how to activate the Rapid Response Team has been discussed. Patient/Family are encouraged to report perceived risks to care and to ask questions if they do not understand what they are told or what they should do.
[2021-03-07] MEDS: LACTATED RINGERS 1,000 ML 125 ML IV CONT ×3 (01:16→13:18)
[2021-03-07 01:17] VITALS: BMI 19.4
[2021-03-07 01:18] VITALS: BP 141/56; PULSE 89; RESP 16; TEMP 35.9; O2SAT 100
[2021-03-07 05:58] VITALS: BP 136/70; PULSE 81; RESP 16; TEMP 36; O2SAT 98
[2021-03-07] MEDS: NEOMYCIN/POLYMYXIN/BACITRACIN OINTMENT PACKET 1 PACKET TOPICAL ×2 (08:33→20:33)
--- NOTE | 2021-03-07 08:37 | PM.IMPN ---
Progress Note: A&P Assessment and Plan (1) Sepsis: Qualifiers: Sepsis acute organ dysfunction status: without acute organ dysfunction Sepsis type: sepsis due to unspecified organism Qualified Code(s): A41.9 - Sepsis, unspecified organism Code(s): A41.9 - Sepsis, unspecified organism Status: Acute Assessment and Plan: Secondary to left elbow cellulitis, tachycardic on presentation, elevated lactate IVF with improvement and her lactate Blood cultures obtained in the emergency department Broad-spectrum antibiotics with vancomycin and Zosyn, deescalate as appropriate (2) Cellulitis of left upper extremity: Code(s): L03.114 - Cellulitis of left upper limb Status: Acute Assessment and Plan: Orthopedic consult MRI today Wound care consult (3) PEG (percutaneous endoscopic gastrostomy) status: Code(s): Z93.1 - Gastrostomy status Status: Acute Assessment and Plan: Continue tube feedings, unfortunately daughter who is her caregiver is unable to be reached, there is a question as to whether she was getting tube feeds or not as patient reports she was eating regularly. Will do a swallow evaluation and advance diet accordingly. (4) Acute left hemiparesis: Code(s): G81.94 - Hemiplegia, unspecified affecting left nondominant side Status: Acute Assessment and Plan: Q.2 hours reposition (5) Dysphagia as late effect of cerebrovascular accident (CVA): Code(s): I69.391 - Dysphagia following cerebral infarction Status: Acute Assessment and Plan: Swallow eval as above (6) Tobacco abuse: Code(s): Z72.0 - Tobacco use Status: Chronic Assessment and Plan: Nicotine patch as needed (7) Seizure disorder: Code(s): G40.909 - Epilepsy, unspecified, not intractable, without status epilepticus Status: Chronic Assessment and Plan: She did have a seizure while in the emergency department Phenytoin level was low in ED Loaded with Keppra Resume Phenytoin Monitor for any seizure activity (8) Hypertension: Qualifiers: Hypertension type: unspecified Qualified Code(s): I10 - Essential (primary) hypertension Code(s): I10 - Essential (primary) hypertension Status: Chronic Assessment and Plan: Continue to monitor Continue home lisinopril and amlodipine Additional Plan DVT proph: Heparin SQ Code status: Full code Dispo: Difficult social situation. Previously patient wanted to be cared for at home, however she is quite complex, not being able to be taken care of at home, she is quite vulnerable and social service director have been involved, discussed with respiratory care specialist, appreciate help with placement options. Subjective Date/time seen: 03/07/21 08:37 No major change overnight. Clinically stable. Discussed events with nursing. Afebrile. Poor appetite. Hemodynamically stable. Patient denies any new concerns. Review of Systems Review of Systems: All systems reviewed & are unremarkable except as noted in HPI and below Exam Narrative: Gen: Alert, NAD Abd: Soft, NT, ND Heart: RRR Lungs: CTAB Ext: No lower extremity edema skin: I examined her skin after she has already received wound care. Grade 4 left elbow ulcer with clean base currently. Bilateral heel ulcers also without evidence of purulence or infection. Objective Data Vital Signs Vital Signs: Vital Signs - 24 hr 03/06/21 14:07 03/06/21 19:33 03/06/21 22:44 Temperature 98.0 F Pulse Rate 108 H 103 H 98 Respiratory Rate 20 14 20 Blood Pressure 124/73 136/74 142/68 H Pulse Oximetry 96 99 98 03/07/21 01:18 03/07/21 05:58 Temperature 96.7 F L 96.8 F L Pulse Rate 89 81 Respiratory Rate 16 16 Blood Pressure 141/56 H 136/70 Pulse Oximetry 100 98 Intake/Output Intake/Output: Intake & Output 03/04/21 03/05/21 03/06/21 03/07/21 23:59 23:59 23:59 23:59 Intake Total 2410 1000 Balance 241
[2021-03-07 11:10] LABS: Erythrocyte Sedimentation Rate 44 mm/hr (0-20)
[2021-03-07] MEDS: HEPARIN SODIUM 5,000 UNITS/ML VIAL 5000 UNITS SUB-Q ×2 (11:17→20:34)
[2021-03-07 12:36] LABS: CRP 5.9 mg/dL (<1.0)
[2021-03-07 14:00] VITALS: BP 146/70; PULSE 74; RESP 18; TEMP 35.9; O2SAT 98
[2021-03-07 14:12] VITALS: BMI 19.4
[2021-03-07] MEDS: SILVERGEL (ELTA) 45 ML 1 APPLIC TOPICAL (14:40)
--- NOTE | 2021-03-07 15:50 | PC.NURSE ---
Called speech therapy to see when they were coming to see the patient. No answer will try to call later. Awaiting results from ST bedside swallow exam before starting any TF or letting the patient eat per Dr. Gordon request.
[2021-03-07 22:00] VITALS: BP 138/66; PULSE 94; RESP 16; TEMP 36.7; O2SAT 100
[2021-03-08] MEDS: LACTATED RINGERS 1,000 ML 125 ML IV CONT ×2 (02:02→20:41)
[2021-03-08 05:33] VITALS: BP 151/75; PULSE 100; RESP 16; TEMP 37; O2SAT 95
[2021-03-08 07:07] LABS: Basophils Percent Auto 0.6 % (0.2-1.2); Eosinophils Absolute Auto 0.1 K/mm3 (0-0.3); Eosinophils Percent Auto 1.4 % (0-4.4); Hematocrit 31.8 % (37.0-47.0); Hemoglobin 10.2 g/dL (12.0-15.0); Immature Granulocyte Absolute 0.03 K/mm3 (0.00-0.031); Immature Granulocyte Percent A 0.5 % (0-0.5); Lymphocytes Absolute Auto 1.33 K/mm3 (0.9-3.2); Lymphocytes Percent Auto 21.2 % (18.3-44.2); Mean Corpuscular HGB Conc 32.1 g/dl (32-36); Mean Corpuscular Hemoglobin 26.5 pg (26-34); Mean Corpuscular Volume 82.6 fl (80-100); Monocytes Absolute Auto 0.3 K/mm3 (0.1-0.6); Monocytes Percent Auto 5.4 % (2.6-8.5); Neutrophils Absolute Auto 4.4 K/mm3 (1.3-6.7); Neutrophils Percent Auto 70.9 % (45.5-73.1); Platelet Count Result 262 k/mm3 (150-375); Red Blood Count 3.85 M/mm3 (4.2-5.4); White Blood Count 6.3 K/mm3 (4.5-10.0)
[2021-03-08 07:24] LABS: Alanine Aminotransferase 7 U/L (4-35); Albumin Level 3.2 g/dL (3.5-5.1); Alkaline Phosphatase 82 U/L (38-126); Anion Gap 9 mmol/L (8-16); Aspartate Amino Transferase 21 U/L (14-36); Bilirubin,Total 0.7 mg/dL (0.2-1.3); Blood Urea Nitrogen 4 mg/dL (7-17); CRP 5.2 mg/dL (<1.0); Calcium 8.2 mg/dL (8.4-10.2); Carbon Dioxide 26 mmol/L (22-30); Chloride 99 mmol/L (98-107); Estimated CRCL calculation 84 ml/min; Estimated Glomerular Filt Rate > 60; Glucose 105 mg/dL (65-110); Sodium 134 mmol/L (137-145)
--- NOTE | 2021-03-08 09:20 | PCSTNOTE ---
Please refer to the Bedside Swallow Evaluation in the EMR. Please note, silent aspiration cannot be ruled out at bedside.
[2021-03-08] MEDS: SILVERGEL (ELTA) 45 ML 1 APPLIC TOPICAL (10:38)
--- NOTE | 2021-03-08 10:44 | PM.CNOR ---
Assessment and Plan Additional Plan Cont daily dressing changes and wound care Place a rolled washcloth in left hand to help maintain extension and avoid masceration of palm Good nail care of left hand to avoid nail injury to skin Pt was seen yest but I was unable to log in to place a note. History of Present Illness HPI Consult date: 03/08/21 Chief complaint: Sepsis, Seizure, L Upper Ext Wound PMFSH Past Medical History Medical History Acute left hemiparesis Depression Dysphagia as late effect of cerebrovascular accident (CVA) Elevated blood sugar Head ache Hypertension Hypokalemia Seizure disorder Tobacco abuse Surgical History Surgical History History of laparotomy Family History Family History Sibling Heart disease Social History Social History (Updated 03/07/21 @ 02:01 by Kanchan Wise RN) Social History: The patient has 2 sons in the live with her. She is . She is disabled. She does not have a durable power assistant city attorney for healthcare. She is a full code. She denies any alcohol or substance abuse. Smoking packs per day: 1.5 Smoking cigarettes per day: 30.0 Smoking status: Current every day smoker Tobacco type: cigarettes Alcohol intake: never Substance use: never Living arrangements: with family Occupation/Education: other Spiritual care concerns: No Meds Home Medications and Allergies Home Medications Medication Instructions Recorded Confirmed Type acetaminophen [Nortemp] 650 mg FEEDING TUBE Q4H PRN #12 oz 07/26/20 03/07/21 Rx amlodipine 10 mg PO DAILY #30 tablet 07/26/20 03/07/21 Rx atorvastatin 80 mg PO HS #30 tablet 07/26/20 03/07/21 Rx clopidogrel 75 mg PO DAILY #30 tablet 07/26/20 03/07/21 Rx fluoxetine 20 mg PO DAILY #150 ml 07/26/20 03/07/21 Rx lisinopril 40 mg PO DAILY #30 tablet 07/26/20 03/07/21 Rx nicotine 1 patch TRANSDERMAL DAILY #15 ea 07/26/20 03/07/21 Rx phenytoin sodium extended 300 mg PO HS #30 cap 07/26/20 03/07/21 Rx [Dilantin Extended] Allergies Allergy/AdvReac Type Severity Reaction Status Date / Time aspirin Allergy Seizure Verified 03/07/21 01:48 Vital Signs Vital Signs - 24 hr 03/07/21 14:00 03/07/21 22:00 03/08/21 05:33 Temperature 35.9 C L 36.7 C 37.0 C Pulse Rate 74 94 100 Respiratory Rate 18 16 16 Blood Pressure 146/70 H 138/66 151/75 H Pulse Oximetry 98 100 95 Exam Extrem: Other: Left Arm pressure sore over medial epicondyle About 2 quarter sized areas side by side granulation bed with some yellow exudate min serous drainage on dressing distally hand is contracted in flexion No ascending lymphangitis Swelling is diminishing slightly from yest Results Labs Result Diagrams: 03/08/21 06:03 03/08/21 06:03 Labs: Abnormal lab results 03/07/21 03/07/21 03/08/21 Range/Units 08:30 08:30 06:03 RBC 3.85 L (4.2-5.4) M/mm3 Hgb 10.2 L D (12.0-15.0) g/dL Hct 31.8 L (37.0-47.0) % ESR 44 H (0-20) mm/hr Sodium (137-145) mmol/L Potassium (3.4-5.0) mmol/L BUN (7-17) mg/dL Creatinine (0.7-1.0) mg/dL Calcium (8.4-10.2) mg/dL C-Reactive Protein 5.9 H (<1.0) mg/dL Albumin (3.5-5.1) g/dL 03/08/21 Range/Units 06:03 RBC (4.2-5.4) M/mm3 Hgb (12.0-15.0) g/dL Hct (37.0-47.0) % ESR (0-20) mm/hr Sodium 134 L (137-145) mmol/L Potassium 3.0 L (3.4-5.0) mmol/L BUN 4 L (7-17) mg/dL Creatinine 0.50 L (0.7-1.0) mg/dL Calcium 8.2 L (8.4-10.2) mg/dL C-Reactive Protein 5.2 H (<1.0) mg/dL Albumin 3.2 L (3.5-5.1) g/dL H & H 03/06/21 03/08/21 Range/Units 17:29 06:03 Hgb 14.4 D 10.2 L D (12.0-15.0) g/dL Hct 47.9 H 31.8 L (37.0-47.0) % Coagulation 03/06/21 Range/Units 18:37 INR 1.2 All other labs normal.
--- NOTE | 2021-03-08 12:43 | PM.IMPN ---
Progress Note: A&P Assessment and Plan (1) Sepsis: Qualifiers: Sepsis acute organ dysfunction status: without acute organ dysfunction Sepsis type: sepsis due to unspecified organism Qualified Code(s): A41.9 - Sepsis, unspecified organism Code(s): A41.9 - Sepsis, unspecified organism Status: Acute Assessment and Plan: Secondary to left elbow cellulitis, tachycardic on presentation, elevated lactate IVF with improvement and her lactate Blood cultures obtained in the emergency department are growing Grm positive cocci in clusters. We will continue broad-spectrum antibiotics with vancomycin and Zosyn, deescalate as appropriate when final identifications return. (2) Cellulitis of left upper extremity: Code(s): L03.114 - Cellulitis of left upper limb Status: Acute Assessment and Plan: Orthopedic consult: continue daily wound and nail care; maintain hand in extension with rolled towel. MRI today: report pending. Wound care done (3) PEG (percutaneous endoscopic gastrostomy) status: Code(s): Z93.1 - Gastrostomy status Status: Acute Assessment and Plan: Per speech, patient tolerated pureed and liquids. She is edentulous. Pureed diet ordered.. (4) Acute left hemiparesis: Code(s): G81.94 - Hemiplegia, unspecified affecting left nondominant side Status: Acute Assessment and Plan: Q.2 hours reposition (5) Dysphagia as late effect of cerebrovascular accident (CVA): Code(s): I69.391 - Dysphagia following cerebral infarction Status: Acute Assessment and Plan: Pureed diet (6) Tobacco abuse: Code(s): Z72.0 - Tobacco use Status: Chronic Assessment and Plan: Nicotine patch as needed (7) Seizure disorder: Code(s): G40.909 - Epilepsy, unspecified, not intractable, without status epilepticus Status: Chronic Assessment and Plan: She did have a seizure while in the emergency department Phenytoin level was low in ED s/p keppra loading. Continue keppra and phenytoin. Monitor for any seizure activity (8) Hypertension: Qualifiers: Hypertension type: unspecified Qualified Code(s): I10 - Essential (primary) hypertension Code(s): I10 - Essential (primary) hypertension Status: Chronic Assessment and Plan: Continue to monitor Continue home lisinopril and amlodipine Additional Plan DVT proph: Heparin SQ Code status: Full code Dispo: tannery worker evaluation for placement options. Difficult social situation. Previously patient wanted to be cared for at home, however she is quite complex, not being able to be taken care of at home, she is quite vulnerable and social services specialist have been involved, discussed with customer care assistant, appreciate help with placement options. Subjective Date/time seen: 03/08/21 12:43 Review of Systems Review of Systems: Cannot be obtained. Exam Narrative: Gen: Awake, alert, NAD. Abd: Soft, NT, ND Heart: RRR Lungs: CTAB Ext: No lower extremity edema skin: Left elbow s/p dressing. Objective Data Vital Signs Vital Signs: Vital Signs - 24 hr 03/07/21 14:00 03/07/21 22:00 03/08/21 05:33 Temperature 96.6 F L 98.0 F 98.6 F Pulse Rate 74 94 100 Respiratory Rate 18 16 16 Blood Pressure 146/70 H 138/66 151/75 H Pulse Oximetry 98 100 95 Intake/Output Intake/Output: Intake & Output 03/05/21 03/06/21 03/07/21 03/08/21 23:59 23:59 23:59 23:59 Intake Total 2410 2250 1000 Balance 2410 2250 1000 Meds/Results Medications: Active Medications Generic Name Dose Route Start Last Admin Trade Name Freq PRN Reason Stop Dose Admin Acetaminophen 650 mg 03/08/21 12:40 Acetaminophen 160 Mg/5 Ml Oral Syringe FEED TUBE Q4H PRN Pain Or Fever Amlodipine Besylate 10 mg 03/09/21 09:00 Amlodipine Besylate 5 Mg Tablet PO DAILY [facility] Atorvastatin Calcium 80 mg 03/08/21 21:00 Atorvastatin 40 Mg Tablet P
[2021-03-08] MEDS: HEPARIN SODIUM 5,000 UNITS/ML VIAL 5000 UNITS SUB-Q ×2 (13:18→20:41)
[2021-03-08] MEDS: NEOMYCIN/POLYMYXIN/BACITRACIN OINTMENT PACKET 1 PACKET TOPICAL ×2 (13:21→20:41)
[2021-03-08 14:43] VITALS: BP 121/61; PULSE 107; RESP 16; TEMP 35.7; O2SAT 97
[2021-03-08 20:37] VITALS: BP 126/50; PULSE 100; RESP 18; TEMP 36.6; O2SAT 99
[2021-03-08] MEDS: PHENYTOIN SODIUM 100 MG CAP 300 MG PO (20:41)
[2021-03-08] MEDS: ATORVASTATIN 40 MG TABLET 80 MG PO (20:42)
[2021-03-09 04:00] LABS: Vancomycin Trough 6.6 ug/mL (10.0-20.0)
[2021-03-09] MEDS: LACTATED RINGERS 1,000 ML 125 ML IV CONT ×2 (04:31→21:32)
[2021-03-09 05:56] VITALS: BP 132/87; PULSE 100; RESP 18; TEMP 36.6; O2SAT 99
[2021-03-09] MEDS: ACETAMINOPHEN ELIXIR 325 MG/10.15 ML UDC 650 MG FEED TUBE (09:13)
[2021-03-09] MEDS: amLODIPine BESYLATE 5 MG TABLET 10 MG PO (09:14)
[2021-03-09] MEDS: HEPARIN SODIUM 5,000 UNITS/ML VIAL 5000 UNITS SUB-Q ×2 (09:14→21:33)
[2021-03-09] MEDS: FLUoxetine HCL 20 MG CAPSULE PO (09:14)
[2021-03-09] MEDS: lisinopriL 20 MG TABLET 40 MG PO (09:15)
[2021-03-09] MEDS: CLOPIDOGREL BISULFATE 75 MG TABLET PO (09:15)
[2021-03-09] MEDS: NEOMYCIN/POLYMYXIN/BACITRACIN OINTMENT PACKET 1 PACKET TOPICAL ×2 (09:16→21:34)
[2021-03-09] MEDS: LIDOCAINE HCL 1% PF INJ 5 ML VIAL INFILTRATE (11:15)
[2021-03-09] MEDS: ACETAMINOPHEN/CODEINE (*CRX) 300/30 MG TABLET 1 TAB PO (12:39)
[2021-03-09] MEDS: SILVERGEL (ELTA) 45 ML 1 APPLIC TOPICAL (12:44)
--- NOTE | 2021-03-09 14:03 | PM.IMPN ---
Progress Note: A&P Assessment and Plan (1) Sepsis: Qualifiers: Sepsis acute organ dysfunction status: without acute organ dysfunction Sepsis type: sepsis due to unspecified organism Qualified Code(s): A41.9 - Sepsis, unspecified organism Code(s): A41.9 - Sepsis, unspecified organism Status: Acute Assessment and Plan: Secondary to left elbow cellulitis, tachycardic on presentation, elevated lactate IVF with improvement and her lactate Blood cultures obtained in the emergency department are growing coagulase negative staph.. Per ID recommendation we will switch to vancomycin and cefepime through 04/05/21 . tylenol PRN for pain management. (2) Cellulitis of left upper extremity: Code(s): L03.114 - Cellulitis of left upper limb Status: Acute Assessment and Plan: Orthopedic consult: continue daily wound and nail care; maintain hand in extension with rolled towel. MRI: myositis and osteomyelitis involving the tip of the left humeral lateral epicondyle. Wound care done (3) PEG (percutaneous endoscopic gastrostomy) status: Code(s): Z93.1 - Gastrostomy status Status: Acute Assessment and Plan: Per speech, patient tolerated pureed and liquids. She is edentulous. Pureed diet ordered. (4) Acute left hemiparesis: Code(s): G81.94 - Hemiplegia, unspecified affecting left nondominant side Status: Acute Assessment and Plan: Q.2 hours reposition (5) Dysphagia as late effect of cerebrovascular accident (CVA): Code(s): I69.391 - Dysphagia following cerebral infarction Status: Acute Assessment and Plan: Pureed diet tolerated. (6) Tobacco abuse: Code(s): Z72.0 - Tobacco use Status: Chronic Assessment and Plan: Nicotine patch as needed (7) Seizure disorder: Code(s): G40.909 - Epilepsy, unspecified, not intractable, without status epilepticus Status: Chronic Assessment and Plan: She did have a seizure while in the emergency department Phenytoin level was low in ED s/p keppra loading. Continue keppra and phenytoin. Monitor for any seizure activity. Fall and seizure precaution (8) Hypertension: Qualifiers: Hypertension type: unspecified Qualified Code(s): I10 - Essential (primary) hypertension Code(s): I10 - Essential (primary) hypertension Status: Chronic Assessment and Plan: Continue to monitor Continue home lisinopril and amlodipine Additional Plan DVT proph: Heparin SQ Code status: Full code Dispo: test worker evaluation for placement options. Difficult social situation. Previously patient wanted to be cared for at home, however she is quite complex, not being able to be taken care of at home, she is quite vulnerable and long term care social worker have been involved, discussed with day care aide, appreciate help with placement options. Subjective Date/time seen: 03/09/21 14:03 S : Patient was seen and examined at the bedside today; she reports elbow pain. Review of Systems Review of Systems: All systems reviewed & are unremarkable except as noted in HPI and below Exam Narrative: Gen: Awake, alert, mild distress due to elbow pain. Abd: Soft, NT, ND Heart: RRR Lungs: CTAB Ext: No lower extremity edema skin: Left elbow s/p dressing. Const: General: comfortable, no acute distress, well developed, ill appearing, lethargic and patient obtunded Nutritional Appearance: thin Orientation/consciousness: patient obtunded and lethargic HENMT: Head: normal to inspection, normocephalic and atraumatic Ears: hearing grossly normal bilaterally General nose exam: Normal external nose present Face and sinus: normal facial exam and other (Hyrsutism) Mouth: Yes dry mucous membranes Teeth and gingiva: poor dentition Eyes: General: appearance normal, both eyes and all related structures Alignment and Position: alignment normal Sclera: sclerae normal Pupils: Equal, round a
--- NOTE | 2021-03-09 15:05 | WPDINFPN2 ---
Progress Note: A&P Assessment and Plan (1) Cellulitis of left upper extremity: Code(s): L03.114 - Cellulitis of left upper limb Status: Acute Assessment and Plan: cellulitis of L elbow due to underlying OM acute REC Vanc and cefepime through 04/05/21. Ok discharge planning, clinical f/u Subjective Date/time seen: 03/09/21 15:05 Objective Data Vital Signs Vital Signs: Vital Signs - 24 hr 03/08/21 20:37 03/09/21 05:56 Temperature 36.6 C 36.6 C Pulse Rate 100 100 Respiratory Rate 18 18 Blood Pressure 126/50 L 132/87 Pulse Oximetry 99 99 Intake/Output Intake/Output: Intake & Output 03/06/21 03/07/21 03/08/21 03/09/21 23:59 23:59 23:59 23:59 Intake Total 2410 2250 2970 1730 Balance 2410 2250 2970 1730 Meds/Results Medications: Active Medications Generic Name Dose Route Start Last Admin Trade Name Freq PRN Reason Stop Dose Admin Acetaminophen 650 mg 03/09/21 12:30 Acetaminophen 325 Mg Tablet PO Q6H PRN Headache, pain Amlodipine Besylate 10 mg 03/09/21 09:00 03/09/21 09:14 Amlodipine Besylate 5 Mg Tablet PO 10 mg DAILY VERA Administration Atorvastatin Calcium 80 mg 03/08/21 21:00 03/08/21 20:42 Atorvastatin 40 Mg Tablet PO 80 mg HS VERA Administration Clopidogrel Bisulfate 75 mg 03/09/21 09:00 03/09/21 09:15 Clopidogrel Bisulfate 75 Mg Tablet PO 75 mg DAILY VERA Administration Fluoxetine HCl 20 mg 03/09/21 09:00 03/09/21 09:14 Fluoxetine Hcl 20 Mg Capsule PO 04/08/21 09:01 20 mg DAILY VERA Administration Heparin Sodium (Porcine) 5,000 units 03/07/21 09:00 03/09/21 09:14 Heparin Sodium 5,000 Units/Ml Vial SUB-Q 5,000 units Q12HR VERA Administration Lactated Ringer's 1,000 mls @ 125 mls/hr 03/06/21 21:15 03/09/21 04:31 Lr - Lactated Ringers Iv IV CONT 125 mls/hr .Q8H VERA Administration Vancomycin HCl 1,000 mg in 250 mls @ 250 mls/hr 03/09/21 16:00 Vancomycin 1,000 Mg/D5w 250 Ml IVPB Q12H VERA Lisinopril 40 mg 03/09/21 09:00 03/09/21 09:15 Lisinopril 20 Mg Tablet PO 40 mg DAILY VERA Administration Miconazole Nitrate 1 applic 03/07/21 09:00 03/09/21 09:16 Miconazole 2% Antifungal Ointment 56 Gm TOPICAL 1 applic Q12HR VERA Administration Neomycin/Polymyxin/Bacitracin 1 packet 03/07/21 09:00 03/09/21 09:16 Neomycin/Polymyxin/Bacitracin Ointment Packet TOPICAL 1 packet Q12HR VERA Administration Nicotine 1 patch 03/08/21 09:00 03/09/21 10:33 Nicotine (*Pbkc) 7 Mg Patch TRANSDERM Not Given DAILY VERA Phenytoin Sodium 300 mg 03/08/21 21:00 03/08/21 20:41 Phenytoin Sodium 100 Mg Cap PO 300 mg HS VERA Administration Silver Nitrate 1 applic 03/07/21 09:00 03/09/21 12:44 Silvergel (Elta) 45 Ml TOPICAL 1 applic DAILY VERA Administration Sodium Chloride 10 ml 03/09/21 14:00 Central Line Flush IV PUSH Q8HR VERA Sodium Chloride 10 ml 03/09/21 12:06 Central Line Flush IV PUSH PRN PRN with TPN bag changes Sodium Chloride 20 ml 03/09/21 12:06 Central Line Flush IV PUSH PRN PRN after blood draws Radiology Results: ITS Impressions Elbow X-Ray 03/06/21 17:21 IMPRESSION: 1. No specific evidence of osteomyelitis. Elbow MRI 03/08/21 12:43 IMPRESSION: 1. Cellulitis, underlying myositis and osteomyelitis involving the tip of the left humeral lateral epicondyle in the proximal aspect of the musculature of the extensor compartment. 2. Likely reactive mild lateral epitrochlear lymphadenopathy. Labs Labs: Laboratory Results - last 24 hr 03/09/21 03:11 Vancomycin Trough 6.6 L
[2021-03-09 15:29] VITALS: BP 112/61; PULSE 98; RESP 18; TEMP 36.2; O2SAT 99
--- NOTE | 2021-03-09 15:47 | CONS_ITS ---
DATE OF CONSULTATION: 03/09/2021 REASON FOR CONSULTATION: Osteomyelitis, left humerus. HISTORY OF PRESENT ILLNESS: 50-year-old female who can provide limited history due to partial expressive aphasia. She is right-handed. In July of this year, she was here in the rehab unit for recovery from stroke, ischemic in nature. She presented back to this hospital on March 06 with 1 week of a draining ulcer over the lateral epicondyle area of the left elbow. She had a seizure episode in the emergency room as well. She initially was given piperacillin and vancomycin, now on vancomycin monotherapy. She has been seen by Orthopedic Surgery and no plans for operative intervention are evident. Consultation requested this afternoon. She denies fever, chills, sweats, trauma, recent antibiotics, or recent immunosuppressants. HABITS: 1/2 pack per day smoker, and encouraged cessation for adequate treatment of her infection. No alcohol. PRESENT MEDICATIONS: See above. No immunosuppressants. ALLERGIES: ASPIRIN REPORTEDLY CAUSED A SEIZURE. PAST MEDICAL HISTORY: Atherosclerosis, previous depression, hypertension, known seizure disorder, and chronic Latham. REVIEW OF SYSTEMS: 14-point review otherwise negative. FAMILY HISTORY: Heart disease. SOCIAL HISTORY: She is speaking with her daughter on the phone currently. She lives with 2 sons. She is and disabled. PHYSICAL EXAMINATION: GENERAL: Middle-aged female, who appears much older than her actual age. Well nourished. No acute distress. VITAL SIGNS: Afebrile, 118, 132/87, 99% on room air. SKIN: No generalized rashes. She has a left heel purplish bulla consistent with pressure injury. No rashes. Warm and dry. NODES: No cervical adenopathy. EENT: The conjunctivae are normal. Pupils equal and round. The oropharynx, oral mucosa normal. NECK: No masses, thyromegaly or meningismus. LUNGS: Clear to auscultation and percussion. CARDIAC: Tachycardic, regular. No murmurs or gallops. ABDOMEN: Soft, nontender. No organomegaly. No masses. EXTREMITIES: No clubbing, cyanosis, or edema in the lower extremities. MUSCULOSKELETAL: She has an ulcer with undermining at the left lateral epicondyle area. No purulence or necrosis. She has mild surrounding erythema. The ulcer is irregular shaped about 2 cm in diameter. LABORATORY DATA: Blood cultures 2 out of 2 sets, coagulase-negative staph species. No wound cultures available. White blood cell count 6.3, similar to previous values. Hemoglobin 10.2, which is down 4 points. Anemia will be addressed by her primary care physician. Platelets are 262, differential is normal. She had mild hyponatremia, hypokalemia. Remainder of her chemistry panel is normal. Glucose initially 170, now 105. Hemoglobin A1c 06/27/2020, 6.0%. CRP is 5.2. No pathology is available. RADIOLOGY: Elbow x-ray showed no active disease; however, her elbow MRI showed cellulitis and underlying osteomyelitis, lateral epicondyle of the humerus, also reactive epitrochlear adenopathy. No septic arthritis. ASSESSMENT: 1. Acute onset left elbow pain and redness with open ulceration and abnormal MRI, I suspect acute osteomyelitis of the distal left humerus. Suspect skin ese and doubt hematogenous osteomyelitis. Considerations include oxacillin-sensitive Staphylococcus aureus, methicillin-resistant Staphylococcus aureus, various staphylococci otherwise. I doubt gram negatives. I doubt opportunistic pathogens. 2. Seizure disorder. 3. Tobacco abuse predisposing to her present illness. 4. Previous stroke with left hemiparesis. 5. Largely bed-bound. RECOMMENDATIONS: 1. The staphylococcus not aureus in the blood stream may or may not be a pathogen here; however, it should be
[2021-03-09] MEDS: CENTRAL LINE FLUSH 10 ML IV PUSH ×2 (16:03→21:39)
--- NOTE | 2021-03-09 16:05 | PCDIET ---
Nutrition Follow-Up Complete: Increased protein needs related to wound as evidenced by pressure ulcers present on buttocks, coccyx, right heel, and left posterior elbow. Patient to meet estimated nutrient needs. Patient to tolerate tube feedings if started. Goal: Goal met. Continue goal Pt current nutrition is Pureed level 4 Nutrition recommendation: add nutrition supplement 2/2 to signs of malnutrition including muscle and fat loss in triceps, mild temporal wasting Last recorded weight is 48.2 kg, recommend updated wt Bowel Motility: BM yesterday 03/08 Labs Reviewed:03/09 Hgb 10.2, Hct 31.8, Alb 3.2, Na 134, K 3.0, BUN 4, Cr .50, C reactive 5.2 Meds Noted:Vancomycin, Lipitor, LRs Additional Notes: Pt states appetite is good. PO intakes range from 50-100%. Pt agreeable to nutrition supplement support so Ensure Enlive will be provided once daily to help halt further wt loss. We will continue to monitor patient's labs, medications, weight, and oral intake every 5 days.
--- NOTE | 2021-03-09 17:44 | PM.PNORT ---
Progress Note: A&P Additional Plan Cont IV ATBs Cont daily dressing changes keep direct pressure off medial epicondyle keep a roll gauze or washcloth in left hand will follow wound closure by seconday intention May need plastics consult for soft tissue management if delayed healing. Subjective Subjective Date/Time Seen: 03/09/21 17:44 Exam Extrem: Other: Left Elbow dressig in place No drainage noted rolled rene in left hand to help absorb sweat and gentle extend fingers. Gentle flex and ext is less tender this PM PICC in place for IV ATBs Objective Data Vital Signs Vital Signs: Vital Signs - 24 hr 03/08/21 20:37 03/09/21 05:56 03/09/21 15:29 Temperature 36.6 C 36.6 C 36.2 C L Pulse Rate 100 100 98 Respiratory Rate 18 18 18 Blood Pressure 126/50 L 132/87 112/61 Pulse Oximetry 99 99 99 Intake/Output Intake/Output: Intake & Output 03/06/21 03/07/21 03/08/21 03/09/21 23:59 23:59 23:59 23:59 Intake Total 2410 2250 2970 1780 Balance 2410 2250 2970 1780 Meds/Results Medications: Active Medications Generic Name Dose Route Start Last Admin Trade Name Freq PRN Reason Stop Dose Admin Acetaminophen 650 mg 03/09/21 15:42 Acetaminophen 325 Mg Tablet PO Q4H PRN Mild Pain (1-3) or Fever Amlodipine Besylate 10 mg 03/09/21 09:00 03/09/21 09:14 Amlodipine Besylate 5 Mg Tablet PO 10 mg DAILY VERA Administration Atorvastatin Calcium 80 mg 03/08/21 21:00 03/08/21 20:42 Atorvastatin 40 Mg Tablet PO 80 mg HS VERA Administration Clopidogrel Bisulfate 75 mg 03/09/21 09:00 03/09/21 09:15 Clopidogrel Bisulfate 75 Mg Tablet PO 75 mg DAILY VERA Administration Fluoxetine HCl 20 mg 03/09/21 09:00 03/09/21 09:14 Fluoxetine Hcl 20 Mg Capsule PO 04/08/21 09:01 20 mg DAILY VERA Administration Heparin Sodium (Porcine) 5,000 units 03/07/21 09:00 03/09/21 09:14 Heparin Sodium 5,000 Units/Ml Vial SUB-Q 5,000 units Q12HR VERA Administration Lactated Ringer's 1,000 mls @ 125 mls/hr 03/06/21 21:15 03/09/21 04:31 Lr - Lactated Ringers Iv IV CONT 125 mls/hr .Q8H VERA Administration Vancomycin HCl 1,000 mg in 250 mls @ 250 mls/hr 03/09/21 16:00 03/09/21 16:40 Vancomycin 1,000 Mg/D5w 250 Ml IVPB 250 mls/hr Q12H VERA Administration Cefepime HCl 1 gm in 50 mls @ 100 mls/hr 03/09/21 15:05 03/09/21 16:30 Maxipime 1 Gm/D5w 50 Ml IVPB Infused Q8HR VERA Infusion Lisinopril 40 mg 03/09/21 09:00 03/09/21 09:15 Lisinopril 20 Mg Tablet PO 40 mg DAILY VERA Administration Miconazole Nitrate 1 applic 03/07/21 09:00 03/09/21 09:16 Miconazole 2% Antifungal Ointment 56 Gm TOPICAL 1 applic Q12HR VERA Administration Neomycin/Polymyxin/Bacitracin 1 packet 03/07/21 09:00 03/09/21 09:16 Neomycin/Polymyxin/Bacitracin Ointment Packet TOPICAL 1 packet Q12HR VERA Administration Nicotine 1 patch 03/08/21 09:00 03/09/21 10:33 Nicotine (*Pbkc) 7 Mg Patch TRANSDERM Not Given DAILY VERA Phenytoin Sodium 300 mg 03/08/21 21:00 03/08/21 20:41 Phenytoin Sodium 100 Mg Cap PO 300 mg HS VERA Administration Silver Nitrate 1 applic 03/07/21 09:00 03/09/21 12:44 Silvergel (Elta) 45 Ml TOPICAL 1 applic DAILY VERA Administration Sodium Chloride 10 ml 03/09/21 14:00 03/09/21 16:03 Central Line Flush IV PUSH 10 ml Q8HR VERA Administration Sodium Chloride 10 ml 03/09/21 12:06 Central Line Flush IV PUSH PRN PRN with TPN bag changes Sodium Chloride 20 ml 03/09/21 12:06 Central Line Flush IV PUSH PRN PRN after blood draws Radiology Results: ITS Impressions Elbow X-Ray 03/06/21 17:21 IMPRESSION: 1. No specific evidence of osteomyelitis. Elbow MRI 03/08/21 12:43 IMPRESSION: 1. Cellulitis, underlying myositis and osteomyelitis involving the tip of the left humeral lateral epicondyle in the proximal aspect of the musculature of the extensor compartment. 2. Likel
[2021-03-09 21:14] VITALS: BP 132/68; PULSE 94; RESP 18; TEMP 36.6; O2SAT 100
[2021-03-09] MEDS: ATORVASTATIN 40 MG TABLET 80 MG PO (21:34)
[2021-03-09] MEDS: PHENYTOIN SODIUM 100 MG CAP 300 MG PO (21:34)
[2021-03-10] MEDS: CENTRAL LINE FLUSH 10 ML IV PUSH ×3 (05:18→21:29)
[2021-03-10 06:10] VITALS: BP 133/70; PULSE 89; RESP 14; TEMP 36.7; O2SAT 98
[2021-03-10] MEDS: LACTATED RINGERS 1,000 ML 125 ML IV CONT ×2 (06:51→15:27)
[2021-03-10] MEDS: ACETAMINOPHEN 325 MG TABLET 650 MG PO (09:27)
[2021-03-10] MEDS: HEPARIN SODIUM 5,000 UNITS/ML VIAL 5000 UNITS SUB-Q ×2 (09:27→21:28)
[2021-03-10] MEDS: lisinopriL 20 MG TABLET 40 MG PO (09:28)
[2021-03-10] MEDS: NEOMYCIN/POLYMYXIN/BACITRACIN OINTMENT PACKET 1 PACKET TOPICAL ×2 (09:28→21:28)
[2021-03-10] MEDS: CLOPIDOGREL BISULFATE 75 MG TABLET PO (09:28)
[2021-03-10] MEDS: FLUoxetine HCL 20 MG CAPSULE PO (09:28)
[2021-03-10] MEDS: NICOTINE (*PBKC) 7 MG PATCH 1 PATCH TRANSDERM (09:28)
[2021-03-10] MEDS: amLODIPine BESYLATE 5 MG TABLET 10 MG PO (09:28)
[2021-03-10] MEDS: SILVERGEL (ELTA) 45 ML 1 APPLIC TOPICAL (09:29)
--- NOTE | 2021-03-10 12:40 | PM.IMPN ---
Progress Note: A&P Assessment and Plan (1) Sepsis: Qualifiers: Sepsis acute organ dysfunction status: without acute organ dysfunction Sepsis type: sepsis due to unspecified organism Qualified Code(s): A41.9 - Sepsis, unspecified organism Code(s): A41.9 - Sepsis, unspecified organism Status: Acute Assessment and Plan: Secondary to left elbow cellulitis, tachycardic on presentation, elevated lactate now resolved. IVF with improvement and her lactate Blood cultures obtained in the emergency department are growing coagulase negative staph.. Per ID recommendation we will continue vancomycin and cefepime through 04/05/21 . Tylenol PRN for pain management. (2) Cellulitis of left upper extremity: Code(s): L03.114 - Cellulitis of left upper limb Status: Acute Assessment and Plan: Orthopedic consult: continue daily wound and nail care; maintain hand in extension with rolled towel. MRI: myositis and osteomyelitis involving the tip of the left humeral lateral epicondyle. Wound care done (3) PEG (percutaneous endoscopic gastrostomy) status: Code(s): Z93.1 - Gastrostomy status Status: Acute Assessment and Plan: Pureed diet is tolerated. (4) Acute left hemiparesis: Code(s): G81.94 - Hemiplegia, unspecified affecting left nondominant side Status: Acute Assessment and Plan: Q.2 hours reposition (5) Dysphagia as late effect of cerebrovascular accident (CVA): Code(s): I69.391 - Dysphagia following cerebral infarction Status: Acute Assessment and Plan: Pureed diet tolerated. (6) Tobacco abuse: Code(s): Z72.0 - Tobacco use Status: Chronic Assessment and Plan: Nicotine patch as needed (7) Seizure disorder: Code(s): G40.909 - Epilepsy, unspecified, not intractable, without status epilepticus Status: Chronic Assessment and Plan: She did have a seizure while in the emergency department Phenytoin level was low in ED s/p keppra loading. Continue keppra and phenytoin. Monitor for any seizure activity. Fall and seizure precaution (8) Hypertension: Qualifiers: Hypertension type: unspecified Qualified Code(s): I10 - Essential (primary) hypertension Code(s): I10 - Essential (primary) hypertension Status: Chronic Assessment and Plan: BP at goal Continue to monitor Continue home lisinopril and amlodipine Additional Plan DVT proph: Heparin SQ Code status: Full code Dispo: hot blast worker evaluation for placement options. Difficult social situation. Previously patient wanted to be cared for at home, however she is quite complex, not being able to be taken care of at home, she is quite vulnerable and manager social responsibility have been involved, discussed with lpn care manager, appreciate help with placement options. Subjective Date/time seen: 03/10/21 12:40 Patient was examined at the bedside. she reports L elbow pain. Review of Systems Review of Systems: All systems reviewed & are unremarkable except as noted in HPI and below Exam Narrative: Gen: Awake, alert, mild distress due to L elbow pain. Abd: Soft, NT, ND Heart: RRR Lungs: CTAB Ext: No lower extremity edema skin: Left elbow s/p dressing. Const: General: comfortable, no acute distress, well developed, ill appearing, lethargic and patient obtunded Nutritional Appearance: thin Orientation/consciousness: patient obtunded and lethargic HENMT: Head: normal to inspection, normocephalic and atraumatic Ears: hearing grossly normal bilaterally General nose exam: Normal external nose present Face and sinus: normal facial exam and other (Hyrsutism) Mouth: Yes dry mucous membranes Teeth and gingiva: poor dentition Eyes: General: appearance normal, both eyes and all related structures Alignment and Position: alignment normal Sclera: sclerae normal Pupils: Equal, round and reactive pupils present EOM: EOMs intact bilaterall
[2021-03-10 14:00] VITALS: BP 120/62; PULSE 98; RESP 18; TEMP 36.8; O2SAT 99
[2021-03-10 15:38] LABS: Basophils Percent Auto 0.3 % (0.2-1.2); Eosinophils Absolute Auto 0.1 K/mm3 (0-0.3); Eosinophils Percent Auto 1.5 % (0-4.4); Hematocrit 29.4 % (37.0-47.0); Hemoglobin 9.4 g/dL (12.0-15.0); Immature Granulocyte Absolute 0.02 K/mm3 (0.00-0.031); Immature Granulocyte Percent A 0.3 % (0-0.5); Lymphocytes Absolute Auto 1.23 K/mm3 (0.9-3.2); Lymphocytes Percent Auto 20.8 % (18.3-44.2); Mean Corpuscular Volume 84.5 fl (80-100); Mean Platelet Volume 9.1 fl (7.4-10.4); Monocytes Absolute Auto 0.5 K/mm3 (0.1-0.6); Monocytes Percent Auto 8.3 % (2.6-8.5); Neutrophils Absolute Auto 4.1 K/mm3 (1.3-6.7); Neutrophils Percent Auto 68.8 % (45.5-73.1); Platelet Count Result 205 k/mm3 (150-375); Red Blood Count 3.48 M/mm3 (4.2-5.4); Red Cell Distribution Width 13.2 % (11.5-14.5); White Blood Count 5.9 K/mm3 (4.5-10.0)
[2021-03-10 15:41] LABS: Anion Gap 6 mmol/L (8-16); Blood Urea Nitrogen 6 mg/dL (7-17); Carbon Dioxide 30 mmol/L (22-30); Chloride 96 mmol/L (98-107); Estimated CRCL calculation 84 ml/min; Estimated Glomerular Filt Rate > 60; Glucose 171 mg/dL (65-110); Sodium 132 mmol/L (137-145)
[2021-03-10 15:42] LABS: Anion Gap 6 mmol/L (8-16); Blood Urea Nitrogen 6 mg/dL (7-17); Carbon Dioxide 31 mmol/L (22-30); Chloride 95 mmol/L (98-107); Estimated CRCL calculation 84 ml/min; Estimated Glomerular Filt Rate > 60; Glucose 171 mg/dL (65-110); Sodium 132 mmol/L (137-145)
[2021-03-10 16:36] LABS: Vancomycin Trough 11.9 ug/mL (10.0-20.0)
[2021-03-10 20:16] VITALS: BP 154/74; PULSE 93; RESP 16; TEMP 36; O2SAT 100
[2021-03-10] MEDS: ATORVASTATIN 40 MG TABLET 80 MG PO (21:28)
[2021-03-10] MEDS: PHENYTOIN SODIUM 100 MG CAP 300 MG PO (21:28)
[2021-03-11] MEDS: CENTRAL LINE FLUSH 10 ML IV PUSH ×3 (05:06→21:04)
[2021-03-11] MEDS: CENTRAL LINE FLUSH 20 ML IV PUSH (05:11)
[2021-03-11 05:35] LABS: Estimated CRCL calculation 102 ml/min; Estimated Glomerular Filt Rate > 60
[2021-03-11 06:00] VITALS: BP 144/71; PULSE 95; RESP 18; TEMP 36; O2SAT 98
[2021-03-11] MEDS: LACTATED RINGERS 1,000 ML 125 ML IV CONT ×2 (06:58→20:00)
[2021-03-11] MEDS: lisinopriL 20 MG TABLET 40 MG PO (09:30)
[2021-03-11] MEDS: HEPARIN SODIUM 5,000 UNITS/ML VIAL 5000 UNITS SUB-Q ×2 (09:30→20:43)
[2021-03-11] MEDS: NICOTINE (*PBKC) 7 MG PATCH 1 PATCH TRANSDERM (09:31)
[2021-03-11] MEDS: CLOPIDOGREL BISULFATE 75 MG TABLET PO (09:31)
[2021-03-11] MEDS: amLODIPine BESYLATE 5 MG TABLET 10 MG PO (09:31)
[2021-03-11] MEDS: NEOMYCIN/POLYMYXIN/BACITRACIN OINTMENT PACKET 1 PACKET TOPICAL ×2 (09:31→20:43)
[2021-03-11] MEDS: SILVERGEL (ELTA) 45 ML 1 APPLIC TOPICAL (09:31)
[2021-03-11] MEDS: FLUoxetine HCL 20 MG CAPSULE PO (09:31)
--- NOTE | 2021-03-11 12:16 | PM.IMPN ---
Progress Note: A&P Assessment and Plan (1) Sepsis: Qualifiers: Sepsis acute organ dysfunction status: without acute organ dysfunction Sepsis type: sepsis due to unspecified organism Qualified Code(s): A41.9 - Sepsis, unspecified organism Code(s): A41.9 - Sepsis, unspecified organism Status: Acute Assessment and Plan: Secondary to left elbow cellulitis, and osteomyelitis with patient tachycardic on presentation, elevated lactate now resolved. Blood cultures obtained in the emergency department are growing coagulase negative staph. Per ID recommendation we will continue vancomycin and cefepime through 04/05/21 . Tylenol PRN for pain management. (2) Cellulitis of left upper extremity: Code(s): L03.114 - Cellulitis of left upper limb Status: Acute Assessment and Plan: Orthopedic consult: continue daily wound and nail care; maintain hand in extension with rolled towel. MRI: myositis and osteomyelitis involving the tip of the left humeral lateral epicondyle. Wound care is onboard. Pain management with tlenol PRN. (3) PEG (percutaneous endoscopic gastrostomy) status: Code(s): Z93.1 - Gastrostomy status Status: Acute Assessment and Plan: Pureed diet is tolerated. Oral intake remains poor. Assist with feeding and encourage oral intake. (4) Acute left hemiparesis: Code(s): G81.94 - Hemiplegia, unspecified affecting left nondominant side Status: Acute Assessment and Plan: Q.2 hours reposition (5) Dysphagia as late effect of cerebrovascular accident (CVA): Code(s): I69.391 - Dysphagia following cerebral infarction Status: Acute Assessment and Plan: Pureed diet tolerated. (6) Tobacco abuse: Code(s): Z72.0 - Tobacco use Status: Chronic Assessment and Plan: Nicotine patch as needed (7) Seizure disorder: Code(s): G40.909 - Epilepsy, unspecified, not intractable, without status epilepticus Status: Chronic Assessment and Plan: She did have a seizure while in the emergency department Phenytoin level was low in ED s/p keppra loading. Continue keppra and phenytoin. Monitor for any seizure activity. Fall and seizure precaution (8) Hypertension: Qualifiers: Hypertension type: unspecified Qualified Code(s): I10 - Essential (primary) hypertension Code(s): I10 - Essential (primary) hypertension Status: Chronic Assessment and Plan: BP at goal Continue to monitor Continue home lisinopril and amlodipine (9) Hypokalemia: Code(s): E87.6 - Hypokalemia Status: Acute Assessment and Plan: Supplemented. Additional Plan DVT proph: Heparin SQ Code status: Full code Dispo: oncology social worker evaluation for placement options. Difficult social situation. Previously patient wanted to be cared for at home, however she is quite complex, not being able to be taken care of at home, she is quite vulnerable and licensed social worker have been involved, discussed with child care lead teacher, appreciate help with placement options. Subjective Date/time seen: 03/11/21 12:16 Patient is examined at the bedside. She reports elbow pain, although somewhat better compared to yesterday. Oral intake is poor. Review of Systems Review of Systems: All systems reviewed & are unremarkable except as noted in HPI and below Exam Narrative: Gen: Awake, alert, mild distress due to L elbow pain. Abd: Soft, NT, ND Heart: RRR Lungs: CTAB Ext: No lower extremity edema skin: Left elbow s/p dressing. Const: General: comfortable, no acute distress, well developed, ill appearing, lethargic and patient obtunded Nutritional Appearance: thin Orientation/consciousness: patient obtunded and lethargic HENMT: Head: normal to inspection, normocephalic and atraumatic Ears: hearing grossly normal bilaterally General nose exam: Normal external nose present Face and sinus: normal facial exam and other (Hyrsut
[2021-03-11 13:08] LABS: Basophils Percent Auto 0.6 % (0.2-1.2); Eosinophils Absolute Auto 0.1 K/mm3 (0-0.3); Eosinophils Percent Auto 2.4 % (0-4.4); Hematocrit 30.5 % (37.0-47.0); Hemoglobin 9.7 g/dL (12.0-15.0); Immature Granulocyte Absolute 0.02 K/mm3 (0.00-0.031); Immature Granulocyte Percent A 0.4 % (0-0.5); Mean Corpuscular HGB Conc 31.8 g/dl (32-36); Mean Platelet Volume 8.9 fl (7.4-10.4); Monocytes Absolute Auto 0.4 K/mm3 (0.1-0.6); Monocytes Percent Auto 6.5 % (2.6-8.5); Neutrophils Absolute Auto 3.6 K/mm3 (1.3-6.7); Neutrophils Percent Auto 66.1 % (45.5-73.1); Platelet Count Result 213 k/mm3 (150-375); Red Blood Count 3.59 M/mm3 (4.2-5.4); Red Cell Distribution Width 13.2 % (11.5-14.5); White Blood Count 5.4 K/mm3 (4.5-10.0)
[2021-03-11 13:16] LABS: Potassium 3.5 mmol/L (3.4-5.0)
[2021-03-11 13:20] LABS: Anion Gap 3 mmol/L (8-16); Blood Urea Nitrogen 3 mg/dL (7-17); Calcium 8.2 mg/dL (8.4-10.2); Carbon Dioxide 34 mmol/L (22-30); Chloride 94 mmol/L (98-107); Estimated CRCL calculation 84 ml/min; Estimated Glomerular Filt Rate > 60; Glucose 200 mg/dL (65-110); Potassium 3.6 mmol/L (3.4-5.0); Sodium 131 mmol/L (137-145)
[2021-03-11 14:00] VITALS: BP 133/95; PULSE 99; RESP 16; TEMP 37; O2SAT 100
--- NOTE | 2021-03-11 16:16 | WPDINFPN2 ---
Progress Note: A&P Additional Plan 1. His left elbow cellulitis with ulceration. Acute onset. The patient also has abnormal MRI, I suspect acute osteomyelitis of the distal left humerus. Patient is currently on cefepime and vancomycin day 3. Follow up on cultures. Continue local wound care 2. Seizure disorder. 3. Tobacco abuse predisposing to her present illness. 4. Previous stroke with left hemiparesis. 5. Largely bed-bound. Subjective Date/time seen: 03/11/21 16:16 Exam Neck: Neck: normal visual inspection Resp: Effort & Inspection: normal respiratory effort Auscultation: clear to auscultation bilaterally Cardio: Jugular venous distension: no JVD Rate: regular rate Rhythm: regular rhythm Heart sounds: S1 normal heart sound present and S2 normal heart sound present GI: Inspection: normal to inspection Auscultation: normal bowel sounds Skin: Other: Left elbow superficial ulceration with minimal surrounding erythema tender to touch. Range of motion of the elbow with limited. Tender during exam no Extrem: Other: Left upper extremity range of motion is limited. Some soft tissue edema. Objective Data Vital Signs Vital Signs: Vital Signs - 24 hr 03/10/21 20:16 03/11/21 06:00 03/11/21 14:00 Temperature 36.0 C L 36.0 C L 37.0 C Pulse Rate 93 95 99 Respiratory Rate 16 18 16 Blood Pressure 154/74 H 144/71 H 133/95 H Pulse Oximetry 100 98 100 Intake/Output Intake/Output: Intake & Output 03/08/21 03/09/21 03/10/21 03/11/21 23:59 23:59 23:59 23:59 Intake Total 2970 3320 3540 2490 Balance 2970 3320 3540 2490 Meds/Results Medications: Active Medications Generic Name Dose Route Start Last Admin Trade Name Freq PRN Reason Stop Dose Admin Acetaminophen 650 mg 03/09/21 15:42 03/10/21 09:27 Acetaminophen 325 Mg Tablet PO 650 mg Q4H PRN Administration Mild Pain (1-3) or Fever Amlodipine Besylate 10 mg 03/09/21 09:00 03/11/21 09:31 Amlodipine Besylate 5 Mg Tablet PO 10 mg DAILY VERA Administration Atorvastatin Calcium 80 mg 03/08/21 21:00 03/10/21 21:28 Atorvastatin 40 Mg Tablet PO 80 mg HS VERA Administration Clopidogrel Bisulfate 75 mg 03/09/21 09:00 03/11/21 09:31 Clopidogrel Bisulfate 75 Mg Tablet PO 75 mg DAILY VERA Administration Fluoxetine HCl 20 mg 03/09/21 09:00 03/11/21 09:31 Fluoxetine Hcl 20 Mg Capsule PO 04/08/21 09:01 20 mg DAILY VERA Administration Heparin Sodium (Porcine) 5,000 units 03/07/21 09:00 03/11/21 09:30 Heparin Sodium 5,000 Units/Ml Vial SUB-Q 5,000 units Q12HR VERA Administration Lactated Ringer's 1,000 mls @ 125 mls/hr 03/06/21 21:15 03/11/21 15:56 Lr - Lactated Ringers Iv IV CONT Not Given .Q8H VERA Cefepime HCl 1 gm in 50 mls @ 100 mls/hr 03/09/21 15:05 03/11/21 13:58 Maxipime 1 Gm/D5w 50 Ml IVPB 100 mls/hr Q8HR VERA Administration Vancomycin HCl 1,250 mg in 250 mls @ 200 mls/hr 03/11/21 00:00 03/11/21 12:50 Vancomycin 1,250 Mg/D5w 250 Ml IVPB Infused Q12H VERA Infusion Lisinopril 40 mg 03/09/21 09:00 03/11/21 09:30 Lisinopril 20 Mg Tablet PO 40 mg DAILY VERA Administration Miconazole Nitrate 1 applic 03/07/21 09:00 03/11/21 09:31 Miconazole 2% Antifungal Ointment 56 Gm TOPICAL 1 applic Q12HR VERA Administration Neomycin/Polymyxin/Bacitracin 1 packet 03/07/21 09:00 03/11/21 09:31 Neomycin/Polymyxin/Bacitracin Ointment Packet TOPICAL 1 packet Q12HR VERA Administration Nicotine 1 patch 03/08/21 09:00 03/11/21 09:31 Nicotine (*Pbkc) 7 Mg Patch TRANSDERM 1 patch DAILY VERA Administration Phenytoin Sodium 300 mg 03/08/21 21:00 03/10/21 21:28 Phenytoin Sodium 100 Mg Cap PO 300 mg HS VERA Administration Silver Nitrate 1 applic 03/07/21 09:00 03/11/21 09:31 Silvergel (Elta) 45 Ml TOPICAL 1 applic DAILY VERA Administration Sodium Chloride 10 ml 03/09/21 14:00 03/11/21 13:58 Central Line Flush IV PUSH 10 ml
[2021-03-11 20:30] VITALS: BP 125/72; PULSE 101; RESP 18; TEMP 36; O2SAT 100
[2021-03-11] MEDS: ATORVASTATIN 40 MG TABLET 80 MG PO (20:43)
[2021-03-11] MEDS: PHENYTOIN SODIUM 100 MG CAP 300 MG PO (20:43)
[2021-03-12] MEDS: LACTATED RINGERS 1,000 ML 125 ML IV CONT (05:35)
[2021-03-12] MEDS: CENTRAL LINE FLUSH 10 ML IV PUSH ×3 (05:36→21:05)
[2021-03-12 06:00] VITALS: BP 147/76; PULSE 93; RESP 16; TEMP 36; O2SAT 99
[2021-03-12] MEDS: lisinopriL 20 MG TABLET 40 MG PO (09:14)
[2021-03-12] MEDS: NICOTINE (*PBKC) 7 MG PATCH 1 PATCH TRANSDERM (09:14)
[2021-03-12] MEDS: CLOPIDOGREL BISULFATE 75 MG TABLET PO (09:14)
[2021-03-12] MEDS: HEPARIN SODIUM 5,000 UNITS/ML VIAL 5000 UNITS SUB-Q ×2 (09:14→20:19)
[2021-03-12] MEDS: amLODIPine BESYLATE 5 MG TABLET 10 MG PO (09:15)
[2021-03-12] MEDS: FLUoxetine HCL 20 MG CAPSULE PO (09:15)
[2021-03-12] MEDS: SILVERGEL (ELTA) 45 ML 1 APPLIC TOPICAL (09:15)
[2021-03-12] MEDS: NEOMYCIN/POLYMYXIN/BACITRACIN OINTMENT PACKET 1 PACKET TOPICAL ×2 (09:15→20:18)
--- NOTE | 2021-03-12 09:54 | PM.IMPN ---
Progress Note: A&P Assessment and Plan (1) Sepsis: Qualifiers: Sepsis acute organ dysfunction status: without acute organ dysfunction Sepsis type: sepsis due to unspecified organism Qualified Code(s): A41.9 - Sepsis, unspecified organism Code(s): A41.9 - Sepsis, unspecified organism Status: Acute Assessment and Plan: this is a 50-year-old woman with past medical history of stroke, left-sided hemiplegia, expressive aphasia, dysphagia status post gastrostomy tube, chronic indwelling Latham catheter, seizure disorder, and tobacco dependence. She was admitted on 03/06 after she presented to the emergency department with worsening left elbow wound with purulence drainage. She was noted to have had failure to thrive and poor care of her wounds at home. She was noted to be tachycardic and with elevated lactic acid level initially. In the emergency department she did have a seizure, her phenytoin level was noted to be low, she was loaded with Keppra than her home dose of phenytoin was continued. She was given IV fluids. MRI of her elbow showed evidence of cellulitis, underlying myositis and osteomyelitis involving the tip of the left humeral lateral epicondyle in the proximal aspect of the musculature of the extensor compartment. She did have blood culture positive for coagulase-negative Staphylococcus. She was initiated on broad-spectrum antibiotics. Infectious Disease was consulted. Recommended continuation of vancomycin and cefepime through 04/05/2021. She was visited by wound care who followed her closely with meticulous care of her wounds. Orthopedic surgery was consulted, recommended continued daily dressing changes, keep in direct pressure off of medial epicondyle, keeping rolled gauze or washcloth and left hand, with soft tissue management to be expectant to continue to assess the extent of granulation tissue and secondary intention. During her hospitalization she was seen by speech therapy, based on their evaluation, she was recommended a pureed diet with regular liquids. She did well with that. No aspiration episodes. It was recommended that she was stop smoking and this was discussed with her. She will need follow-up with her primary provider within 1-2 weeks of discharge along with follow-up with Orthopedic surgery to continue to assess her wound healing. Secondary to left elbow cellulitis, and osteomyelitis with patient tachycardic on presentation, elevated lactate now resolved. Blood cultures obtained in the emergency department are growing coagulase negative staph. Repeat blood cultures today to ensure clearance Per ID recommendation we will continue vancomycin and cefepime through 04/05/21 . Tylenol PRN for pain management. (2) Cellulitis of left upper extremity: Code(s): L03.114 - Cellulitis of left upper limb Status: Acute Assessment and Plan: Orthopedic consult: continue daily wound and nail care; maintain hand in extension with rolled towel. MRI: myositis and osteomyelitis involving the tip of the left humeral lateral epicondyle. Wound care is onboard. Pain management with tlenol PRN. (3) PEG (percutaneous endoscopic gastrostomy) status: Code(s): Z93.1 - Gastrostomy status Status: Acute Assessment and Plan: Pureed diet is tolerated. Oral intake remains poor. Assist with feeding and encourage oral intake. (4) Acute left hemiparesis: Code(s): G81.94 - Hemiplegia, unspecified affecting left nondominant side Status: Acute Assessment and Plan: Q.2 hours reposition (5) Dysphagia as late effect of cerebrovascular accident (CVA): Code(s): I69.391 - Dysphagia following cerebral infarction Status: Acute Assessment and Plan: Pureed diet tolerated. (6) Tobacco abuse: Code(s): Z72.0 - Tobacco use Status: Chronic Assessment and Plan: Nicotine patch as needed (7) Seizure disorder: Code(s): G40.909 - Epileps
--- NOTE | 2021-03-12 10:20 | PM.PNORT ---
Progress Note: A&P Additional Plan Clinically improving left elbow cont ATBs per ID OK for D/C from [place] POV Cont daily dressing changes Soft tissue management will be expectant for now. Will need to see extent of granulation tissue and secondary intension. Subjective Subjective Date/Time Seen: 03/12/21 10:20 Exam Extrem: Other: Dressing C+D moves with less pain this am Swelling distally is diminished No ascending lymphangitis or erythema Objective Data Vital Signs Vital Signs: Vital Signs - 24 hr 03/11/21 14:00 03/11/21 20:30 03/12/21 06:00 Temperature 37.0 C 36.0 C L 36.0 C L Pulse Rate 99 101 H 93 Respiratory Rate 16 18 16 Blood Pressure 133/95 H 125/72 147/76 H Pulse Oximetry 100 100 99 Intake/Output Intake/Output: Intake & Output 03/09/21 03/10/21 03/11/21 03/12/21 23:59 23:59 23:59 23:59 Intake Total 3320 3540 3790 2150 Output Total 0 Balance 3320 3540 3790 2150 Meds/Results Medications: Active Medications Generic Name Dose Route Start Last Admin Trade Name Freq PRN Reason Stop Dose Admin Acetaminophen 650 mg 03/09/21 15:42 03/10/21 09:27 Acetaminophen 325 Mg Tablet PO 650 mg Q4H PRN Administration Mild Pain (1-3) or Fever Amlodipine Besylate 10 mg 03/09/21 09:00 03/12/21 09:15 Amlodipine Besylate 5 Mg Tablet PO 10 mg DAILY VERA Administration Atorvastatin Calcium 80 mg 03/08/21 21:00 03/11/21 20:43 Atorvastatin 40 Mg Tablet PO 80 mg HS VERA Administration Clopidogrel Bisulfate 75 mg 03/09/21 09:00 03/12/21 09:14 Clopidogrel Bisulfate 75 Mg Tablet PO 75 mg DAILY VERA Administration Fluoxetine HCl 20 mg 03/09/21 09:00 03/12/21 09:15 Fluoxetine Hcl 20 Mg Capsule PO 04/08/21 09:01 20 mg DAILY VERA Administration Heparin Sodium (Porcine) 5,000 units 03/07/21 09:00 03/12/21 09:14 Heparin Sodium 5,000 Units/Ml Vial SUB-Q 5,000 units Q12HR VERA Administration Lactated Ringer's 1,000 mls @ 125 mls/hr 03/06/21 21:15 03/12/21 05:35 Lr - Lactated Ringers Iv IV CONT 125 mls/hr .Q8H VERA Administration Cefepime HCl 1 gm in 50 mls @ 100 mls/hr 03/09/21 15:05 03/12/21 06:06 Maxipime 1 Gm/D5w 50 Ml IVPB Infused Q8HR VERA Infusion Vancomycin HCl 1,250 mg in 250 mls @ 200 mls/hr 03/11/21 00:00 03/12/21 00:52 Vancomycin 1,250 Mg/D5w 250 Ml IVPB Infused Q12H VERA Infusion Lisinopril 40 mg 03/09/21 09:00 03/12/21 09:14 Lisinopril 20 Mg Tablet PO 40 mg DAILY VERA Administration Miconazole Nitrate 1 applic 03/07/21 09:00 03/12/21 09:15 Miconazole 2% Antifungal Ointment 56 Gm TOPICAL 1 applic Q12HR VERA Administration Neomycin/Polymyxin/Bacitracin 1 packet 03/07/21 09:00 03/12/21 09:15 Neomycin/Polymyxin/Bacitracin Ointment Packet TOPICAL 1 packet Q12HR VERA Administration Nicotine 1 patch 03/08/21 09:00 03/12/21 09:14 Nicotine (*Pbkc) 7 Mg Patch TRANSDERM 1 patch DAILY VERA Administration Phenytoin Sodium 300 mg 03/08/21 21:00 03/11/21 20:43 Phenytoin Sodium 100 Mg Cap PO 300 mg HS VERA Administration Silver Nitrate 1 applic 03/07/21 09:00 03/12/21 09:15 Silvergel (Elta) 45 Ml TOPICAL 1 applic DAILY VERA Administration Sodium Chloride 10 ml 03/09/21 14:00 03/12/21 05:36 Central Line Flush IV PUSH 10 ml Q8HR VERA Administration Sodium Chloride 10 ml 03/09/21 12:06 Central Line Flush IV PUSH PRN PRN with TPN bag changes Sodium Chloride 20 ml 03/09/21 12:06 03/11/21 05:11 Central Line Flush IV PUSH 20 ml PRN PRN Administration after blood draws Radiology Results: ITS Impressions Elbow X-Ray 03/06/21 17:21 IMPRESSION: 1. No specific evidence of osteomyelitis. Elbow MRI 03/08/21 12:43 IMPRESSION: 1. Cellulitis, underlying myositis and osteomyelitis involving the tip of the left humeral lateral epicondyle in the proximal aspect of the musculature of the extensor compartment. 2. Likely r
[2021-03-12 11:02] LABS: Fractional Inspired Oxygen 21 %; HCO3 VBG 30.4 mEq/l (24.0-30.0); PCO2 VBG 43.4 mmHg (42.0-48.0); PO2 VBG 46.4 mmHg (35.0-45.0)
[2021-03-12 11:03] LABS: Device ROOM AIR; pH VBG 7.463 (7.300-7.400)
[2021-03-12 11:13] LABS: Vancomycin Trough 18.6 ug/mL (10.0-20.0)
[2021-03-12 13:38] LABS: Basophils Percent Auto 0.4 % (0.2-1.2); Eosinophils Absolute Auto 0.2 K/mm3 (0-0.3); Eosinophils Percent Auto 2.6 % (0-4.4); Hematocrit 28.5 % (37.0-47.0); Hemoglobin 9.1 g/dL (12.0-15.0); Immature Granulocyte Absolute 0.03 K/mm3 (0.00-0.031); Immature Granulocyte Percent A 0.4 % (0-0.5); Lymphocytes Percent Auto 20.6 % (18.3-44.2); Mean Corpuscular HGB Conc 31.9 g/dl (32-36); Mean Corpuscular Hemoglobin 26.9 pg (26-34); Mean Corpuscular Volume 84.3 fl (80-100); Mean Platelet Volume 8.8 fl (7.4-10.4); Monocytes Absolute Auto 0.5 K/mm3 (0.1-0.6); Monocytes Percent Auto 6.6 % (2.6-8.5); Neutrophils Percent Auto 69.4 % (45.5-73.1); Platelet Count Result 233 k/mm3 (150-375); Red Blood Count 3.38 M/mm3 (4.2-5.4); Red Cell Distribution Width 13.4 % (11.5-14.5); White Blood Count 7.3 K/mm3 (4.5-10.0)
[2021-03-12 14:00] VITALS: BP 121/66; PULSE 103; RESP 18; TEMP 36.9; O2SAT 98
[2021-03-12 14:17] LABS: Anion Gap 2 mmol/L (8-16); Blood Urea Nitrogen 7 mg/dL (7-17); Calcium 8.2 mg/dL (8.4-10.2); Carbon Dioxide 32 mmol/L (22-30); Chloride 95 mmol/L (98-107); Estimated CRCL calculation 71 ml/min; Estimated Glomerular Filt Rate > 60; Glucose 168 mg/dL (65-110); Potassium 3.6 mmol/L (3.4-5.0); Sodium 129 mmol/L (137-145)
[2021-03-12 20:16] VITALS: BP 132/68; PULSE 107; RESP 16; TEMP 35.9; O2SAT 99
[2021-03-12] MEDS: ACETAMINOPHEN 325 MG TABLET 650 MG PO (20:17)
[2021-03-12] MEDS: ATORVASTATIN 40 MG TABLET 80 MG PO (20:18)
[2021-03-12] MEDS: PHENYTOIN SODIUM 100 MG CAP 300 MG PO (20:18)
[2021-03-13] MEDS: CENTRAL LINE FLUSH 10 ML IV PUSH ×3 (05:34→22:25)
[2021-03-13 06:00] VITALS: BP 125/72; PULSE 99; RESP 18; TEMP 36.1; O2SAT 97
[2021-03-13 10:20] VITALS: BP 118/68; PULSE 104; RESP 16; O2SAT 98
[2021-03-13] MEDS: CLOPIDOGREL BISULFATE 75 MG TABLET PO (10:22)
[2021-03-13] MEDS: lisinopriL 20 MG TABLET 40 MG PO (10:22)
[2021-03-13] MEDS: amLODIPine BESYLATE 5 MG TABLET 10 MG PO (10:22)
[2021-03-13] MEDS: FLUoxetine HCL 20 MG CAPSULE PO (10:22)
[2021-03-13] MEDS: SILVERGEL (ELTA) 45 ML 1 APPLIC TOPICAL (10:23)
[2021-03-13] MEDS: NEOMYCIN/POLYMYXIN/BACITRACIN OINTMENT PACKET 1 PACKET TOPICAL ×2 (10:23→20:09)
[2021-03-13] MEDS: HEPARIN SODIUM 5,000 UNITS/ML VIAL 5000 UNITS SUB-Q ×2 (10:23→20:09)
--- NOTE | 2021-03-13 11:29 | PM.DS ---
DS: Admitting Diagnosis Discharge Date 03/13/2021 Admitting Diagnosis Left elbow ulcer infection DS: Discharge Diagnosis Discharge Diagnosis (1) Sepsis: Qualifiers: Sepsis acute organ dysfunction status: without acute organ dysfunction Sepsis type: sepsis due to unspecified organism Qualified Code(s): A41.9 - Sepsis, unspecified organism Code(s): A41.9 - Sepsis, unspecified organism Status: Acute (2) Cellulitis of left upper extremity: Code(s): L03.114 - Cellulitis of left upper limb Status: Acute (3) Osteomyelitis of arm: Code(s): M86.9 - Osteomyelitis, unspecified Status: Acute (4) PEG (percutaneous endoscopic gastrostomy) status: Code(s): Z93.1 - Gastrostomy status Status: Acute (5) Seizure disorder: Code(s): G40.909 - Epilepsy, unspecified, not intractable, without status epilepticus Status: Chronic (6) Hypokalemia: Code(s): E87.6 - Hypokalemia Status: Acute (7) Dysphagia as late effect of cerebrovascular accident (CVA): Code(s): I69.391 - Dysphagia following cerebral infarction Status: Acute DS: Summary Hospital Course Hospital Course: This is a 50-year-old woman with past medical history of stroke, left-sided hemiplegia, expressive aphasia, dysphagia status post gastrostomy tube, chronic indwelling [place] catheter, seizure disorder, and tobacco dependence. She was admitted on 03/06 after she presented to the emergency department with worsening left elbow wound with purulence drainage. She was noted to have had failure to thrive and poor care of her wounds at home. She was noted to be tachycardic and with elevated lactic acid level initially. In the emergency department she did have a seizure, her phenytoin level was noted to be low, she was loaded with Keppra than her home dose of phenytoin was continued. She was given IV fluids. MRI of her elbow showed evidence of cellulitis, underlying myositis and osteomyelitis involving the tip of the left humeral lateral epicondyle in the proximal aspect of the musculature of the extensor compartment. She did have blood culture positive for coagulase-negative Staphylococcus. She was initiated on broad-spectrum antibiotics. Infectious Disease was consulted. Recommended continuation of vancomycin and cefepime through 04/05/2021. She was visited by wound care who followed her closely with meticulous care of her wounds. Orthopedic surgery was consulted, recommended continued daily dressing changes, keep in direct pressure off of medial epicondyle, keeping rolled gauze or washcloth and left hand, with soft tissue management to be expectant to continue to assess the extent of granulation tissue and secondary intention. During her hospitalization she was seen by speech therapy, based on their evaluation, she was recommended a pureed diet with regular liquids. She did well with that. No aspiration episodes. It was recommended that she was stop smoking and this was discussed with her. She will need follow-up with her primary provider within 1-2 weeks of discharge along with follow-up with Orthopedic surgery to continue to assess her wound healing. Time Spent with Patient Time attestation: Total time spent providing and/or coordinating discharge services: 35 min Exam Narrative: Gen: Alert, NAD Abd: Soft, NT, ND Heart: RRR Lungs: CTAB Ext: No lower extremity edema DS: Data Data Completed and Pending Labs on day of discharge: Labs from last 24 hours 03/12/21 03/12/21 13:18 13:18 WBC 7.3 RBC 3.38 L Hgb 9.1 L Hct 28.5 L MCV 84.3 MCH 26.9 MCHC 31.9 L RDW 13.4 Plt Count 233 MPV 8.8 Immature Gran % (Auto) 0.4 Neut % (Auto) 69.4 Lymph % (Auto) 20.6 [place] % (Auto) 6.6 Eos % (Auto) 2.6 Baso % (Auto) 0.4 Lymph # (Auto) 1.50 [place] # (Auto) 0.5 Eos # (Auto) 0.2 Baso # (Auto) 0.0 Abs Immat Gran (auto) 0.03 Absolute Neuts (auto) 5.0 Abs
[2021-03-13 12:52] LABS: EDCOVIDSCREEN Negative (Negative)
[2021-03-13 13:31] LABS: Basophils Percent Auto 0.6 % (0.2-1.2); Eosinophils Absolute Auto 0.1 K/mm3 (0-0.3); Eosinophils Percent Auto 1.7 % (0-4.4); Hemoglobin 9.3 g/dL (12.0-15.0); Immature Granulocyte Absolute 0.03 K/mm3 (0.00-0.031); Immature Granulocyte Percent A 0.4 % (0-0.5); Lymphocytes Absolute Auto 1.47 K/mm3 (0.9-3.2); Lymphocytes Percent Auto 21.3 % (18.3-44.2); Mean Corpuscular HGB Conc 32.1 g/dl (32-36); Mean Corpuscular Hemoglobin 27.2 pg (26-34); Mean Corpuscular Volume 84.8 fl (80-100); Mean Platelet Volume 8.8 fl (7.4-10.4); Monocytes Absolute Auto 0.5 K/mm3 (0.1-0.6); Neutrophils Absolute Auto 4.8 K/mm3 (1.3-6.7); Platelet Count Result 214 k/mm3 (150-375); Red Blood Count 3.42 M/mm3 (4.2-5.4); Red Cell Distribution Width 13.5 % (11.5-14.5); White Blood Count 6.9 K/mm3 (4.5-10.0)
[2021-03-13 13:43] LABS: Anion Gap 7 mmol/L (8-16); Blood Urea Nitrogen 7 mg/dL (7-17); Calcium 8.4 mg/dL (8.4-10.2); Carbon Dioxide 30 mmol/L (22-30); Chloride 96 mmol/L (98-107); Estimated CRCL calculation 71 ml/min; Estimated Glomerular Filt Rate > 60; Glucose 148 mg/dL (65-110); Potassium 3.4 mmol/L (3.4-5.0); Sodium 133 mmol/L (137-145)
[2021-03-13 14:51] VITALS: BP 130/66; PULSE 103; RESP 16; TEMP 36.1; O2SAT 99
[2021-03-13 20:04] VITALS: BP 132/75; PULSE 97; RESP 18; TEMP 36.1; O2SAT 99
[2021-03-13] MEDS: ATORVASTATIN 40 MG TABLET 80 MG PO (20:08)
[2021-03-13] MEDS: PHENYTOIN SODIUM 100 MG CAP 300 MG PO (20:09)
== END 2021-03-13 23:58 | DRG 872 ==
LOC: ANHED 20:26 → ANH3MED 03-07 01:45
PROVIDERS: Internal Medicine; Nurse Practitioner Adult Health; Admitting Provider Internal Medicine; Emergency Provider Emergency Medicine; PCP Internal Medicine Infectious Disease; Visit Provider Internal Medicine Nephrology
DX: A41.9 Sepsis, unspecified organism (principal); L03.114 Cellulitis of left upper limb; I69.354 Hemiplegia and hemiparesis following cerebral infarction affecting left non-dominant side; M86.8X2 Other osteomyelitis, upper arm; I69.391 Dysphagia following cerebral infarction; R13.10 Dysphagia, unspecified; I69.320 Aphasia following cerebral infarction; G40.909 Epilepsy, unspecified, not intractable, without status epilepticus; I10 Essential (primary) hypertension; F17.210 Nicotine dependence, cigarettes, uncomplicated; E87.6 Hypokalemia; Z74.01 Bed confinement status; Z93.1 Gastrostomy status; Z97.8 Presence of other specified devices
CPT/HCPCS: 36415; 36569; 73070; 73223; 80048; 80053; 80076; 80185; 80202; 82565; 82803; 83605; 84132; 85025; 85610; 85652; 85730; 86140; 87040; 87077; 87186; 87426; 92610; 96361; 96365; 97110; 97161; 97166; 97530; 97535; 99285; A9270; A9577; C1751; C9803; J0692; J1165; J1644; J2543; J3370; J3480; J7120

== ENCOUNTER 2021-04-02 02:09 | Emergency (ER) | payer MEDICARE, MEDICAID, SELFPAY ==
--- NOTE | ~2021-04-02 | CT_ITS ---
EXAMINATION: CT brain wo con DATE: 04/02/2021 03:08 INDICATION: Fall. Patient on anticoagulant therapy. TECHNIQUE: Computed tomography (CT) of the head was performed without intravenous contrast. The mA wa s adjusted according to patient size. Iterative reconstruction technique was employed. Exam dose: 60 5.33 mGy-cm total exam DLP. COMPARISON: 06/27/2020 MRI brain 06/27/2020 CT brain FINDINGS: Chronic right pontine infarct. Chronic left thalamic and left basal ganglia lacunar infarcts. Bilateral carotid siphon internal carotid artery calcifications. There is nonspecific diminished attenuation of the subcortical and periventricular cerebral white mat ter, likely due to chronic small vessel ischemic changes. There is moderate central and cortical cerebral and cerebellar atrophy. No intracranial mass lesion or hemorrhage, midline shift or mass effect is evident. No subdural or ep idural hematoma. No fracture or bone destruction of the cranial vault. The mastoid air cells and included paranasal si nuses are unremarkable. IMPRESSION: Chronic right laila and left thalamic and basal ganglia lacunar infarcts Cerebral atherosclerosis and chronic small vessel ischemic changes of the cerebral white matter No skull fracture or acute intracranial finding Reviewed, dictated and finalized at [facility]. Reviewed, dictated and finalized at [facility]. IMPRESSION: Chronic right laila and left thalamic and basal ganglia lacunar inf arcts Cerebral atherosclerosis and chronic small vessel ischemic changes of the cereb ral white matter No skull fracture or acute intracranial finding
[2021-04-02 02:14] VITALS: BP 129/73; PULSE 94; RESP 16; TEMP 36.3; O2SAT 100
[2021-04-02 03:31] VITALS: BP 141/74; PULSE 91; RESP 14; O2SAT 97
--- NOTE | 2021-04-02 04:12 | ED.FALL ---
HPI - Fall General Chief Complaint: Fall Stated Complaint: fall Time Seen by Provider: 04/02/21 02:17 History of Present Illness HPI Narrative: Patient is a 50-year-old female with history of CVA with left-sided weakness who presents ER status post fall out of bed. Patient did strike her head. She did not lose consciousness. She is alert and oriented x2 which is her baseline. Patient takes Plavix and was sent here to rule out a intracranial hemorrhage related to the trauma. Related Data Allergies Allergy/AdvReac Type Severity Reaction Status Date / Time aspirin Allergy Seizure Verified 03/07/21 01:48 Review of Systems Review of Systems: ROS unobtainable: Yes unobtainable due to mental status PMFSH Past Medical History Medical History Acute left hemiparesis Depression Dysphagia as late effect of cerebrovascular accident (CVA) Elevated blood sugar Head ache Hypertension Hypokalemia Seizure disorder Tobacco abuse Surgical History Surgical History History of laparotomy Family History Family History Sibling Heart disease Social History Social History (Updated 03/07/21 @ 02:01 by Kanchan Wise RN) Social History: The patient has 2 sons in the live with her. She is . She is disabled. She does not have a durable power united states attorney for healthcare. She is a full code. She denies any alcohol or substance abuse. Smoking packs per day: 1.5 Smoking cigarettes per day: 30.0 Smoking status: Current every day smoker Tobacco type: cigarettes Alcohol intake: never Substance use: never Spiritual care concerns: No Exam Narrative: GENERAL: Chronically ill-appearing, well-nourished, and in no acute distress. HEAD: Normocephalic, atraumatic. EYES: PERRL and EOMI. ENT: Mucous membranes moist CHEST: Clear to auscultation. No respiratory distress. HEART: Regular rate and rhythm. Normal peripheral pulses. EXTREMITIES: Left upper and lower extremity contractures. NEURO: Alert and oriented x2. PSYCH: Normal mood and affect. Course Course Emergency Course: CT negative for acute injury to the brain. Discharge home. Vital Signs Vital signs: Vital Signs Temperature 97.3 F L 04/02/21 02:14 Pulse Rate 94 04/02/21 02:14 Respiratory Rate 16 04/02/21 02:14 Blood Pressure 129/73 04/02/21 02:14 Pulse Oximetry 100 04/02/21 02:14 Temperature 97.3 F L 04/02/21 02:14 Pulse Rate 91 04/02/21 03:31 Respiratory Rate 14 04/02/21 03:31 Blood Pressure 141/74 H 04/02/21 03:31 Pulse Oximetry 97 04/02/21 03:31 MDM - Fall Imaging Data Radiologist's impression: CT head: No hemorrhage, hydrocephalus, mass-effect, or herniation. Bones unremarkable. Discharge Plan Discharge Clinical Impression: Head injury due to trauma Patient Disposition: Home, Self-Care Condition: Stable Instructions: Head Injury (ED) Additional Instructions: There is no evidence of bleeding in your brain on CT scan. Return the ER if you have new injury, you have chest pain or shortness of breath, you have additional concerns. Prescriptions: No Action atorvastatin 40 mg Tablet 80 mg PO HS Qty: 30 RF: 0 cefepime 1 gram Recon Soln 1 g IV Q8HR 24 Days RF: 0 lisinopril 20 mg Tablet 40 mg PO DAILY Qty: 30 RF: 0 phenytoin sodium extended [Dilantin Extended] 100 mg Capsule 300 mg PO HS 30 Days Qty: 90 RF: 0 clopidogrel 75 mg Tablet 75 mg PO DAILY Qty: 30 RF: 0 amlodipine [Norvasc] 5 mg Tablet 10 mg PO DAILY Qty: 60 RF: 0 [place] Antifungal (micon) 2 % Ointment 1 applic topical Q12HR 30 Days RF: 0 fluoxetine 20 mg Tablet 20 mg PO DAILY Qty: 30 RF: 0 Triple Antibiotic 3.5-400-5,000 [id number] Ointment In Packet 1 packet topical Q12HR 30 Days RF: 0 Silver-Sept 200 mcg/gram
--- NOTE | 2021-04-02 04:54 | PC.NURSE ---
called [facility] to request transport. ETA [id number]
[2021-04-02 04:56] VITALS: BP 139/75; PULSE 89; RESP 15; O2SAT 100
--- NOTE | 2021-04-02 04:57 | PC.NURSE ---
Attempted to call report to [facility] and got a busy signal. Will try again.
[2021-04-02 06:25] VITALS: BP 114/78; PULSE 90; RESP 15; O2SAT 97
--- NOTE | 2021-04-02 06:51 | PC.NURSE ---
[facility] here.
== END 2021-04-02 06:58 | disposition home or self-care (01) ==
PROVIDERS: Emergency Provider Emergency Medicine; PCP Internal Medicine Infectious Disease
DX: S09.90XA Unspecified injury of head, initial encounter (principal); I69.954 Hemiplegia and hemiparesis following unspecified cerebrovascular disease affecting left non-dominant side; Z79.02 Long term (current) use of antithrombotics/antiplatelets; I10 Essential (primary) hypertension; G40.909 Epilepsy, unspecified, not intractable, without status epilepticus; F17.210 Nicotine dependence, cigarettes, uncomplicated; W06.XXXA Fall from bed, initial encounter
CPT/HCPCS: 70450; 99284

== ENCOUNTER 2021-04-03 11:30 | Emergency (ER) | payer MEDICARE, MEDICAID, SELFPAY ==
--- NOTE | ~2021-04-03 | CT_ITS ---
EXAMINATION: CT brain wo con, CT cervical spine wo con EXAM DATE: 04/03/2021 12:29 INDICATION: Fall, facial laceration. TECHNIQUE: Spiral CT of the head was performed without contrast. Axial, coronal and sagittal images were reviewed. Spiral CT of the cervical spine was performed without contrast. Axial images were rev iewed. Coronal and sagittal reformatted images were also reviewed. The dose-length product (DLP) fo r this examination was 605.33 (accession [id number]), 125.42 (accession [id number]) mGy-cm. The exposure was tailored according to patient size, and iterative reconstruction (ASIR) was used as additional dose reduction technique. Comparison is made to prior examination from 04/02/2021. FINDINGS: HEAD CT: There is old pontine infarction in the right side unchanged. Bilateral old thalamic and basa l ganglia lacunar infarctions. There is no acute intraparenchymal hemorrhage. No evidence of intrapa renchymal brain mass lesion. No evidence of acute infarction. There is mild to moderate periventricu lar and subcortical hypodensity, nonspecific but probably related to small vessel ischemic disease. There is mild to moderate prominence of the sulci and ventricles related to cerebral atrophy. The re is no mass effect or midline shift. There is no obstructive hydrocephalus suspected. There are no extra-axial collections. There are no acute calvarial fractures. The orbits are unremarkable. Sof t tissue is unremarkable. The visualized sinuses and mastoid air cells are well aerated. CERVICAL CT: There is no evidence of acute cervical fracture. The odontoid process is intact. Pre-d ens space is normal. Prevertebral soft tissue is normal. There are no soft tissue abnormalities di ntified. There is no disc space widening or traumatic vertebral body subluxation suspected. Mild to moderate lower cervical disc disease, mild arthropathy. A detailed level by level evaluation of spo ndylosis can be added as addendum if requested. IMPRESSION: 1. No acute intracranial findings or cervical fracture. 2. Old pontine, thalamic and basal ganglia lacunar infarctions. Reviewed, dictated and finalized at [facility]. IMPRESSION: 1. No acute intracranial findings or cervical fracture. 2. Old pontine, thalamic and basal ganglia lacunar infarctions.
[2021-04-03 11:35] VITALS: PULSE 91; RESP 15; TEMP 36.6; O2SAT 100
[2021-04-03 11:45] VITALS: BP 111/76
--- NOTE | 2021-04-03 12:52 | ED.GENADULT ---
HPI - General Adult General Chief complaint: Fall Stated complaint: fall - right eye lac Time Seen by Provider: 04/03/21 11:40 Source: patient and EMS History of Present Illness HPI narrative: Patient is a 50 y/o female sent here after a fall. She states that she fell out of bed and has a cut near her right eye. She denies any LOC. She denies neck pain, back pain, chest pain or abdominal pain. She has left sided weakness which she attributed to stroke. She is not sure when she had last Tetanus shot. Related Data Allergies Allergy/AdvReac Type Severity Reaction Status Date / Time aspirin Allergy Seizure Verified 04/03/21 12:25 Review of Systems Constitutional: Constitutional: Denies chills, Denies fever(s), Denies headache(s) and Reports weakness Eyes: Eyes: Denies blurry vision ENT: Denies headache(s) and Denies neck pain Cardiovascular: Cardiovascular: Denies chest pain and Denies dyspnea Respiratory: Respiratory: Denies cough and Denies dyspnea Gastrointestinal: Gastrointestinal: Denies abdominal pain, Denies diarrhea, Denies nausea and Denies vomiting Genitourinary: Genitourinary: Denies hematuria and Denies dysuria Musculoskeletal: Musculoskeletal: Denies back pain and Denies neck pain Integumentary/Breasts: Skin/Breast: Reports as per HPI Neurologic: Denies headache(s) and Reports weakness PMFSH Past Medical History Medical History Acute left hemiparesis Depression Dysphagia as late effect of cerebrovascular accident (CVA) Elevated blood sugar Head ache Hypertension Hypokalemia Seizure disorder Tobacco abuse Surgical History Surgical History History of laparotomy Family History Family History Sibling Heart disease Social History Social History Social History: The patient has 2 sons in the live with her. She is . She is disabled. She does not have a durable power litigation attorney for healthcare. She is a full code. She denies any alcohol or substance abuse. Smoking packs per day: 1.5 Smoking cigarettes per day: 30.0 Smoking status: Current every day smoker Tobacco type: cigarettes Alcohol intake: never Substance use: never Spiritual care concerns: No Exam Const: General: no acute distress and ill appearing Orientation/consciousness: oriented to person and oriented to place HENMT: Head: normocephalic Ears: external ears normal General nose exam: Normal external nose present Eyes: General: appearance normal, both eyes and all related structures Conjunctivae: conjunctivae normal Neck: Neck: normal visual inspection and full ROM Chest: Chest palpation & inspection: normal inspection of the chest and no tenderness Resp: Effort & Inspection: normal respiratory effort Auscultation: clear to auscultation bilaterally Cardio: Rate: regular rate Rhythm: regular rhythm GI: GI Palp: No abdominal tenderness and Yes Soft to palpation Skin: General skin exam: normal color and turgor normal Trauma: laceration (1 cm right face) Neuro: General: oriented to person and oriented to place Cognition (Neuro): normal cognition Motor exam (neuro): Other motor observations present (left hemiparesis) Extrem: General: normal to inspection, full ROM and no pedal edema Psych: Appearance: grossly normal Mental Status: mental status grossly normal Affect: normal affect Course Vital Signs Vital signs: Vital Signs Temperature 36.6 C 04/03/21 11:35 Pulse Rate 91 04/03/21 11:35 Respiratory Rate 15 04/03/21 11:35 Pulse Oximetry 100 04/03/21 11:35 Temperature 36.6 C 04/03/21 11:35 Pulse Rate 88 04/03/21 14:56 Respiratory Rate 15 04/03/21 14:56 Blood Pressure 114/75 04/03/21 14:56 Pulse Oximetry 98 04/03/21 14:56 Procedures Laceration L
[2021-04-03] MEDS: TETANUS,DIPHTHERIA,AC PERTUSSIS ADULT (0.5 ML) BOOSTRIX IM (13:02)
--- NOTE | 2021-04-03 14:54 | PC.NURSE ---
patient report called to [facility], Enzo SHAVER. Nurse had no questions or concerns at this time. Patient will be transported back by EMS.
[2021-04-03 14:56] VITALS: BP 114/75; PULSE 88; RESP 15; O2SAT 98
== END 2021-04-03 15:14 ==
PROVIDERS: Emergency Provider Emergency Medicine; PCP Internal Medicine Infectious Disease
DX: S01.81XA Laceration without foreign body of other part of head, initial encounter (principal); Z23 Encounter for immunization; I69.954 Hemiplegia and hemiparesis following unspecified cerebrovascular disease affecting left non-dominant side; I10 Essential (primary) hypertension; G40.909 Epilepsy, unspecified, not intractable, without status epilepticus; F17.210 Nicotine dependence, cigarettes, uncomplicated; W06.XXXA Fall from bed, initial encounter
CPT/HCPCS: 12011; 70450; 72125; 90471; 90715; 99284